=== PATIENT | female | born 1950 | race African-American/Black ===

== ENCOUNTER 2017-11-30 08:22 | Emergency (ER) | payer MEDICARE, BC ==
--- NOTE | 2017-11-30 09:17 | ER Document Report ---
ED General - General Chief Complaint: Flank Pain Stated Complaint: RIGHT SIDE PAIN Time Seen by Provider: 11/30/17 08:41 Mode of Arrival: Ambulatory Information source: Patient Notes: 67-year-old female history of stage IV chronic kidney disease who is from near presents with complaints of right flank pain started yesterday. Patient denies any fever chills denies any urinary complaints. 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 IN LAST 30 DAYS: No - HPI Onset: Yesterday Onset/Duration: Persistent Quality of pain: Achy, Sharp Severity: Mild Pain Level: 1 Associated symptoms: Other Exacerbated by: Denies Relieved by: Denies Similar symptoms previously: No Recently seen / treated by doctor: No - Related Data Allergies/Adverse Reactions: latex Allergy (Verified 11/30/17 08:33) Past Medical History - Social History Smoking Status: Never Smoker Cigarette use (# per day): No Chew tobacco use (# tins/day): No Smoking Education Provided: No Frequency of alcohol use: None Drug Abuse: None Family History: Reviewed & Not Pertinent Patient has suicidal ideation: No Patient has homicidal ideation: No - Past Medical History Cardiac Medical History: Reports: Hx Hypertension Renal/ Medical History: Denies: Hx Peritoneal Dialysis Review of Systems - Review of Systems Notes: REVIEW OF SYSTEMS: CONSTITUTIONAL : Denies fever, chills, or sweats. Denies recent illness. EENT: Denies eye, ear, throat, or mouth pain or symptoms. Denies nasal or sinus congestion or discharge. Denies throat, tongue, or mouth swelling or difficulty swallowing. CARDIOVASCULAR: Denies chest pain. Denies palpitations or racing or irregular heart beat. Denies ankle edema. RESPIRATORY: Denies cough, cold, or chest congestion. Denies shortness of breath, difficulty breathing, or wheezing. GASTROINTESTINAL: Admits to right flank pain GENITOURINARY: Denies difficulty urinating, painful urination, burning, frequency, blood in urine, or discharge. FEMALE GENITOURINARY: Denies vaginal bleeding, heavy or abnormal periods, irregular periods. Denies vaginal discharge or odor. MUSCULOSKELETAL: Denies back or neck pain or stiffness. Denies joint pain or swelling. SKIN: Denies rash, lesions or sores. HEMATOLOGIC : Denies easy bruising or bleeding. LYMPHATIC: Denies swollen, enlarged glands. NEUROLOGICAL: Denies confusion or altered mental status. Denies passing out or loss of consciousness. Denies dizziness or lightheadedness. Denies headache. Denies weakness or paralysis or loss of use of either side. Denies problems with gait or speech. Denies sensory loss, numbness, or tingling. Denies seizures. PSYCHIATRIC: Denies anxiety or stress. Denies depression, suicidal ideation, or homicidal ideation. ALL OTHER SYSTEMS REVIEWED AND NEGATIVE. PHYSICAL EXAMINATION: GENERAL: Well-appearing, well-nourished and in no acute distress. HEAD: Atraumatic, normocephalic. EYES: Pupils equal round and reactive to light, extraocular movements intact, conjunctiva are normal. ENT: Nares patent, oropharynx clear without exudates. Moist mucous membranes. NECK: Normal range of motion, supple without lymphadenopathy LUNGS: Breath sounds clear to auscultation bilaterally and equal. No wheezes rales or rhonchi. HEART: Regular rate and rhythm without murmurs ABDOMEN: Soft, nontender, nondistended abdomen. No guarding, no rebound. No masses appreciated. Female : deferred Musculoskeletal: Normal range of motion, no pitting or edema. No cyanosis. NEUROLOGICAL: Cranial nerves grossly intact. Normal speech, normal gait. Normal sensory, motor exams PSYCH: Normal mood, normal affect. SKIN: Warm, Dry, normal turgor, no rashes or lesions noted. Dictation was performed using [email or web address] voice recognition software Physical Exam - Vital signs Vitals: Temp Pulse Resp BP Pulse Ox 97.7 F 89 18 192/84 H 97 11/30/17 08:32 11/30/17 08:32 11/30/17 08:32 11/30/17 08:32 11/30/17 08:32 Course - Re-evaluation Re-evalutation: 11/30/17 09:17 No CVA tenderness noted however patient has point tenderness in the right flank , lab work urinalysis and imaging are pending at this time 11/30/17 14:59 Patient's creatinine is noted to be 2.06, she is unsure what her baseline is, her potassium is not elevated, she will be given nephrology to follow-up with, CT was consistent with cholelithiasis without signs of cholecystitis and patient has no right-sided abdominal pain I did describe the findings to her. Overall she looks well is in no distress, there was 3+ bacteria in her urine therefore I will start her on antibiotics and culture her urine Patient given very strict return precautions and is happy with her discharge After performing a Medical Screening Examination, I estimate there is LOW risk for ACUTE APPENDICITIS, BOWEL OBSTRUCTION, ACUTE CHOLECYSTITIS, PERFORATED DIVERTICULITIS, INCARCERATED HERNIA, PANCREATITIS, PELVIC INFLAMMATORY DISEASE, PERFORATED ULCER, ECTOPIC , or TUBO-OVARIAN ABSCESS, thus I consider the discharge disposition reasonable. Also, there is no evidence or peritonitis , sepsis, or toxicity. I have reevaluated this patient multiple times and no significant life threatening changes are noted. The patient and I have discussed the diagnosis and risks, and we agree with discharging home with close follow-up with the understanding that symptoms and presentations can change. We also discussed returning to the Emergency Department immediately if new or worsening symptoms occur. We have discussed the symptoms which are most concerning (e.g., bloody stool, fever, changing or worsening pain, vomiting) that necessitate immediate return. - Vital Signs Vital signs: Temp Pulse Resp BP Pulse Ox 98.3 F 77 18 152/95 H 98 11/30/17 11:15 11/30/17 11:15 11/30/17 11:15 11/30/17 11:15 11/30/17 11:15 - Laboratory Result Diagrams: 11/30/17 09:29 11/30/17 10:32 Laboratory results interpreted by me: 11/30/17 11/30/17 11/30/17 09:29 10:24 10:32 RDW 15.5 H Sodium 145.1 H Chloride 109 H BUN 28 H Creatinine 2.06 H Est GFR ( Amer) 29 L Est GFR (Non-Af Amer) 24 L Urine Protein >=500 H Urine Blood SMALL H - Diagnostic Test Radiology reviewed: Image reviewed - CT abdomen without oral or IV contrast is consistent with cholelithiasis, Reports reviewed Discharge - Discharge Clinical Impression: CKD (chronic kidney disease) Qualifiers: Chronic kidney disease stage: stage 3 (moderate) Qualified Code(s): N18.3 - Chronic kidney disease, stage 3 (moderate) UTI (urinary tract infection) Qualifiers: Urinary tract infection type: acute cystitis Hematuria presence: without hematuria Qualified Code(s): N30.00 - Acute cystitis without hematuria Condition: Stable Disposition: HOME, SELF-CARE Instructions: Urinary Tract Infection ([facility]) Prescriptions: Cephalexin Monohydrate [Keflex 500 mg Capsule] 500 mg PO BID 7 Days capsule Referrals: Caroline TINSLEY MD [ACTIVE STAFF] - Follow up tomorrow
--- NOTE | 2017-11-30 09:42 | RADIOLOGY REPORT (SQ) ---
EXAM DESCRIPTION: CT LTD RENAL STONE PROTOCOL ON COMPLETED DATE/TIME: 11/30/2017 9:12 am REASON FOR STUDY: flank pain COMPARISON: None. TECHNIQUE: CT scan of the abdomen and pelvis performed without intravenous or oral contrast. Images reviewed with lung, soft tissue, and bone windows. Reconstructed coronal and sagittal MPR images revi ewed. All images stored on PACS. All CT scanners at this facility use dose modulation, iterative reconstruction, and/or weight based d osing when appropriate to reduce radiation dose to as low as reasonably achievable (ALARA). [facility]: Dose Right [facility]: CareDose [facility]: Dose Right [facility]: Teradose 4D [facility]: [employer] RADIATION DOSE: CT Rad equipment meets quality standard of care and radiation dose reduction techniq ues were employed. CTDIvol: 23.4 mGy. DLP: 1286 mGy-cm.mGy. LIMITATIONS: None. FINDINGS: LOWER CHEST: No significant findings. No nodules or infiltrates. NON-CONTRASTED LIVER, SPLEEN, ADRENALS: Evaluation limited by lack of IV contrast. No identified sign ificant masses. PANCREAS: No masses. No peripancreatic inflammatory changes. GALLBLADDER: Gallstones. No inflammatory changes to suggest cholecystitis. RIGHT KIDNEY AND URETER: No suspicious masses. Assessment limited by lack of IV contrast. No signif icant calcifications. No hydronephrosis or hydroureter. LEFT KIDNEY AND URETER: No suspicious masses. Assessment limited by lack of IV contrast. No signifi cant calcifications. No hydronephrosis or hydroureter. AORTA AND RETROPERITONEUM: No aneurysm. No retroperitoneal masses or adenopathy. BOWEL AND PERITONEAL CAVITY: No obvious masses or inflammatory changes. No free fluid. APPENDIX: Normal. PELVIS, BLADDER, AND ABDOMINAL WALL:No abnormal masses. No free fluid. Bladder normal. BONES: No significant findings. OTHER: No other significant finding. IMPRESSION: Cholelithiasis. No acute findings. COMMENT: Quality ID # [id number]: Final reports with documentation of one or more dose reduction techniques (e.g., Automated exposure control, adjustment of the mA and/or kV according to patient size, use of iterative reconstruction technique) TECHNICAL DOCUMENTATION: JOB ID: [id number] [employer]- All Rights Reserved Reading location - IP/workstation name: [email or web address]
[2017-11-30 09:46] LABS: ABSOLUTE BASOPHILS # (AUTO) 0.1 10^3/uL (0.0-0.2); ABSOLUTE EOSINOPHILS # (AUTO) 0.2 10^3/uL (0.0-0.6); ABSOLUTE LYMPHOCYTES (AUTO) 2.1 10^3/uL (0.5-4.7); ABSOLUTE MONOCYTES (AUTO) 0.6 10^3/uL (0.1-1.4); ABSOLUTE NEUT (AUTO) 4.9 10^3/uL (1.7-8.2); BASOPHILS % (AUTO) 1.2 % (0-2); EOSINOPHILS % (AUTO) 2.1 % (0-6); HEMATOCRIT 37.7 % (36.0-47.0); HEMOGLOBIN 12.4 g/dL (12.0-15.5); LYMPHOCYTES % (AUTO) 26.8 % (13-45); MEAN CORPUSCULAR HEMOGLOBIN 29.8 pg (27.0-33.4); MEAN CORPUSCULAR HGB CONC 32.9 g/dL (32.0-36.0); MEAN CORPUSCULAR VOLUME 91 fl (80-97); MONOCYTES % (AUTO) 7.4 % (3-13); PLATELET COUNT 242 10^3/uL (150-450); RED BLOOD COUNT 4.15 10^6/uL (3.72-5.28); RED CELL DISTRIBUTION WIDTH 15.5 % (11.5-14.0); SEGMENTED NEUTROPHILS % (AUTO) 62.5 % (42-78); TOTAL CELLS COUNTED % (AUTO) 100 %; WHITE BLOOD COUNT 7.9 10^3/uL (4.0-10.5)
[2017-11-30 10:57] LABS: APPEARANCE,URINE CLOUDY; BILIRUBIN,URINE NEGATIVE (NEGATIVE); COLOR,URINE YELLOW; GLUCOSE, URINE NEGATIVE (NEGATIVE); KETONES,URINE NEGATIVE (NEGATIVE); LEUKOCYTE ESTERASE,URINE NEGATIVE (NEGATIVE); NITRITE,URINE NEGATIVE (NEGATIVE); PROTEIN,URINE >=500 mg/dL (NEGATIVE); URINE SPECIFIC GRAVITY 1.019; UROBILINOGEN,URINE NEGATIVE mg/dL (<2.0)
[2017-11-30 10:58] LABS: ALANINE AMINOTRANSFERASE 24 U/L (9-52); ALBUMIN 3.5 g/dL (3.5-5.0); ALKALINE PHOSPHATASE 89 U/L (38-126); ANION GAP 11 (5-19); ASPARTATE AMINO TRANSFERASE 18 U/L (14-36); BILIRUBIN,DIRECT 0.4 mg/dL (0.0-0.4); BILIRUBIN,TOTAL 0.4 mg/dL (0.2-1.3); BLOOD UREA NITROGEN 28 mg/dL (7-20); CALCIUM 9.2 mg/dL (8.4-10.2); CARBON DIOXIDE 25 mmol/L (22-30); CHLORIDE 109 mmol/L (98-107); GLUCOSE 108 mg/dL (75-110); LIPASE 63.2 U/L (23-300); POTASSIUM 3.9 mmol/L (3.6-5.0); SODIUM 145.1 mmol/L (137-145); TOTAL PROTEIN 6.9 g/dL (6.3-8.2)
[2017-11-30 11:18] VITALS: BP 152/95
== END 2017-11-30 11:18 | disposition home or self-care (01) ==
LOC: EDBD → ER 08:22
DX: N30.00 Acute cystitis without hematuria (principal); I12.9 Hypertensive chronic kidney disease with stage 1 through stage 4 chronic kidney disease, or unspecified chronic kidney disease; N18.3 Chronic kidney disease, stage 3 (moderate); Z91.041 Radiographic dye allergy status; R10.9 Unspecified abdominal pain
CPT/HCPCS: 36415; 76380; 80053; 81001; 83690; 85025; 87086; 99284

== ENCOUNTER → 2018-04-09 | Outpatient (CLI) | payer MEDICARE, BC ==
[2018-04-09 10:52] LABS: ABSOLUTE BASOPHILS # (AUTO) 0.1 10^3/uL (0.0-0.2); ABSOLUTE EOSINOPHILS # (AUTO) 0.1 10^3/uL (0.0-0.6); ABSOLUTE LYMPHOCYTES (AUTO) 1.8 10^3/uL (0.5-4.7); ABSOLUTE MONOCYTES (AUTO) 0.5 10^3/uL (0.1-1.4); ABSOLUTE NEUT (AUTO) 4.2 10^3/uL (1.7-8.2); BASOPHILS % (AUTO) 1.2 % (0-2); EOSINOPHILS % (AUTO) 2.2 % (0-6); HEMATOCRIT 34.3 % (36.0-47.0); HEMOGLOBIN 11.5 g/dL (12.0-15.5); LYMPHOCYTES % (AUTO) 26.3 % (13-45); MEAN CORPUSCULAR HEMOGLOBIN 29.6 pg (27.0-33.4); MEAN CORPUSCULAR HGB CONC 33.4 g/dL (32.0-36.0); MEAN CORPUSCULAR VOLUME 89 fl (80-97); MONOCYTES % (AUTO) 7.9 % (3-13); PLATELET COUNT 246 10^3/uL (150-450); RED BLOOD COUNT 3.88 10^6/uL (3.72-5.28); RED CELL DISTRIBUTION WIDTH 14.6 % (11.5-14.0); SEGMENTED NEUTROPHILS % (AUTO) 62.4 % (42-78); TOTAL CELLS COUNTED % (AUTO) 100 %; WHITE BLOOD COUNT 6.8 10^3/uL (4.0-10.5)
[2018-04-09 11:22] LABS: ALANINE AMINOTRANSFERASE 21 U/L (9-52); ALBUMIN 3.4 g/dL (3.5-5.0); ALKALINE PHOSPHATASE 94 U/L (38-126); ANION GAP 12 (5-19); ASPARTATE AMINO TRANSFERASE 17 U/L (14-36); BILIRUBIN,DIRECT 0.3 mg/dL (0.0-0.4); BILIRUBIN,TOTAL 0.4 mg/dL (0.2-1.3); BLOOD UREA NITROGEN 34 mg/dL (7-20); CALCIUM 8.8 mg/dL (8.4-10.2); CARBON DIOXIDE 24 mmol/L (22-30); CHLORIDE 109 mmol/L (98-107); GLUCOSE 159 mg/dL (75-110); IRON(TIBC) 61.5 ug/dL (37-170); PHOSPHORUS 4.5 mg/dL (2.5-4.5); POTASSIUM 3.6 mmol/L (3.6-5.0); SODIUM 145.4 mmol/L (137-145); TOTAL PROTEIN 6.9 g/dL (6.3-8.2)
[2018-04-10 15:38] LABS: A/G RATIO 0.8 (0.7-1.7); ALPHA-2-GLOBULIN 2 0.9 g/dL (0.4-1.0); BETA GLOBULINS 1.1 g/dL (0.7-1.3); GAMMA GLOBULIN 1.4 g/dL (0.4-1.8); GLOBULIN TOTAL 3.6 g/dL (2.2-3.9); MONOCLONAL SPIKE Not Observed g/dL (Not Observ); PROTEIN TOTAL SERUM 6.6 g/dL (6.0-8.5)
== END ==
LOC: OD 09:51
PROVIDERS: ATTEND Internal Medicine Nephrology
DX: I12.9 Hypertensive chronic kidney disease with stage 1 through stage 4 chronic kidney disease, or unspecified chronic kidney disease (principal); N18.4 Chronic kidney disease, stage 4 (severe); D64.9 Anemia, unspecified; M1A.00X0 Idiopathic chronic gout, unspecified site, without tophus (tophi)
CPT/HCPCS: 36415; 80053; 82728; 83540; 83550; 83970; 84100; 84165; 84550; 85025

== ENCOUNTER → 2018-10-16 | Outpatient (CLI) | payer MEDICARE, BC ==
[2018-10-16 10:04] LABS: HEMATOCRIT 36.2 % (36.0-47.0); HEMOGLOBIN 12.2 g/dL (12.0-15.5); MEAN CORPUSCULAR HEMOGLOBIN 30.4 pg (27.0-33.4); MEAN CORPUSCULAR HGB CONC 33.7 g/dL (32.0-36.0); MEAN CORPUSCULAR VOLUME 90 fl (80-97); PLATELET COUNT 258 10^3/uL (150-450); RED BLOOD COUNT 4.01 10^6/uL (3.72-5.28); RED CELL DISTRIBUTION WIDTH 15.2 % (11.5-14.0); WHITE BLOOD COUNT 5.9 10^3/uL (4.0-10.5)
[2018-10-16 10:25] LABS: ANION GAP 11 (5-19); BLOOD UREA NITROGEN 33 mg/dL (7-20); CARBON DIOXIDE 24 mmol/L (22-30); CHLORIDE 111 mmol/L (98-107); GLUCOSE 84 mg/dL (75-110); POTASSIUM 3.8 mmol/L (3.6-5.0); SODIUM 145.5 mmol/L (137-145)
== END ==
LOC: OD 09:13
PROVIDERS: ATTEND Internal Medicine Nephrology
DX: I12.9 Hypertensive chronic kidney disease with stage 1 through stage 4 chronic kidney disease, or unspecified chronic kidney disease (principal); N18.3 Chronic kidney disease, stage 3 (moderate); D64.9 Anemia, unspecified
CPT/HCPCS: 36415; 80048; 83970; 84100; 85027

== ENCOUNTER → 2018-11-20 | Outpatient (CLI) | payer MEDICARE, BC ==
[2018-11-20 10:57] LABS: HEMATOCRIT 34.5 % (36.0-47.0); HEMOGLOBIN 11.6 g/dL (12.0-15.5); MEAN CORPUSCULAR HEMOGLOBIN 30.2 pg (27.0-33.4); MEAN CORPUSCULAR HGB CONC 33.6 g/dL (32.0-36.0); MEAN CORPUSCULAR VOLUME 90 fl (80-97); PLATELET COUNT 257 10^3/uL (150-450); RED BLOOD COUNT 3.84 10^6/uL (3.72-5.28); RED CELL DISTRIBUTION WIDTH 15.8 % (11.5-14.0); WHITE BLOOD COUNT 7.8 10^3/uL (4.0-10.5)
[2018-11-20 11:18] LABS: AMORPHOUS SEDIMENT,URINE TRACE /HPF; APPEARANCE,URINE TURBID; BILIRUBIN,URINE NEGATIVE (NEGATIVE); COLOR,URINE YELLOW; GLUCOSE, URINE 50 mg/dL (NEGATIVE); KETONES,URINE NEGATIVE (NEGATIVE); LEUKOCYTE ESTERASE,URINE TRACE (NEGATIVE); NITRITE,URINE NEGATIVE (NEGATIVE); PROTEIN,URINE >=500 mg/dL (NEGATIVE); URINE SPECIFIC GRAVITY 1.015; UROBILINOGEN,URINE NEGATIVE mg/dL (<2.0)
[2018-11-20 11:19] LABS: ANION GAP 10 (5-19); BLOOD UREA NITROGEN 40 mg/dL (7-20); CALCIUM 9.2 mg/dL (8.4-10.2); CARBON DIOXIDE 25 mmol/L (22-30); CHLORIDE 106 mmol/L (98-107); GLUCOSE 115 mg/dL (75-110); PHOSPHORUS 5.1 mg/dL (2.5-4.5); POTASSIUM 3.6 mmol/L (3.6-5.0); SODIUM 141.4 mmol/L (137-145)
[2018-11-20 11:27] LABS: URINE CREATININE 174.5 mg/dL (15-278)
[2018-11-20 11:36] LABS: UR PRO/CREAT RATIO RESULT 2.4 mg/mg (0.0-0.2); URINE PROTEIN 426.9 mg/dL (<12)
== END ==
LOC: OD 10:01
PROVIDERS: ATTEND Internal Medicine Nephrology
DX: I12.9 Hypertensive chronic kidney disease with stage 1 through stage 4 chronic kidney disease, or unspecified chronic kidney disease (principal); N18.4 Chronic kidney disease, stage 4 (severe); E11.22 Type 2 diabetes mellitus with diabetic chronic kidney disease
CPT/HCPCS: 36415; 80048; 81001; 82570; 83970; 84100; 84156; 85027

== ENCOUNTER → 2019-03-01 | Outpatient (CLI) | payer MEDICARE, BC ==
[2019-03-01 11:02] LABS: MEAN CORPUSCULAR HEMOGLOBIN 29.8 pg (27.0-33.4); MEAN CORPUSCULAR HGB CONC 33.4 g/dL (32.0-36.0); MEAN CORPUSCULAR VOLUME 89 fl (80-97); PLATELET COUNT 247 10^3/uL (150-450); RED BLOOD COUNT 3.69 10^6/uL (3.72-5.28); RED CELL DISTRIBUTION WIDTH 15.9 % (11.5-14.0); WHITE BLOOD COUNT 6.7 10^3/uL (4.0-10.5)
[2019-03-01 11:24] LABS: ANION GAP 9 (5-19); BLOOD UREA NITROGEN 37 mg/dL (7-20); CALCIUM 9.1 mg/dL (8.4-10.2); CARBON DIOXIDE 29 mmol/L (22-30); CHLORIDE 107 mmol/L (98-107); GLUCOSE 136 mg/dL (75-110); PHOSPHORUS 4.4 mg/dL (2.5-4.5); SODIUM 144.8 mmol/L (137-145)
[2019-03-01 16:12] LABS: APPEARANCE,URINE CLEAR; BILIRUBIN,URINE NEGATIVE (NEGATIVE); COLOR,URINE YELLOW; GLUCOSE, URINE NEGATIVE (NEGATIVE); KETONES,URINE NEGATIVE (NEGATIVE); LEUKOCYTE ESTERASE,URINE NEGATIVE (NEGATIVE); NITRITE,URINE NEGATIVE (NEGATIVE); PROTEIN,URINE >=500 mg/dL (NEGATIVE); UROBILINOGEN,URINE NEGATIVE mg/dL (<2.0)
[2019-03-01 16:19] LABS: URINE SPECIFIC GRAVITY 1.015
[2019-03-01 16:31] LABS: URINE CREATININE 170.9 mg/dL (15-278)
[2019-03-01 16:40] LABS: UR PRO/CREAT RATIO RESULT 1.8 mg/mg (0.0-0.2); URINE PROTEIN 305.4 mg/dL (<12)
== END ==
LOC: OD 10:17
PROVIDERS: ATTEND Internal Medicine Nephrology
DX: I12.9 Hypertensive chronic kidney disease with stage 1 through stage 4 chronic kidney disease, or unspecified chronic kidney disease (principal); N18.4 Chronic kidney disease, stage 4 (severe); E11.22 Type 2 diabetes mellitus with diabetic chronic kidney disease; N25.0 Renal osteodystrophy; E83.51 Hypocalcemia; D50.9 Iron deficiency anemia, unspecified
CPT/HCPCS: 36415; 80048; 81001; 82570; 83970; 84100; 84156; 85027

== ENCOUNTER → 2019-07-06 | Outpatient (CLI) | payer MEDICARE, BC ==
[2019-07-06 09:05] LABS: ABSOLUTE BASOPHILS # (AUTO) 0.1 10^3/uL (0.0-0.2); ABSOLUTE EOSINOPHILS # (AUTO) 0.2 10^3/uL (0.0-0.6); ABSOLUTE LYMPHOCYTES (AUTO) 2.1 10^3/uL (0.5-4.7); ABSOLUTE MONOCYTES (AUTO) 0.5 10^3/uL (0.1-1.4); ABSOLUTE NEUT (AUTO) 4.4 10^3/uL (1.7-8.2); EOSINOPHILS % (AUTO) 2.8 % (0-6); HEMATOCRIT 35.4 % (36.0-47.0); HEMOGLOBIN 12.1 g/dL (12.0-15.5); LYMPHOCYTES % (AUTO) 28.9 % (13-45); MEAN CORPUSCULAR HEMOGLOBIN 30.2 pg (27.0-33.4); MEAN CORPUSCULAR HGB CONC 34.1 g/dL (32.0-36.0); MEAN CORPUSCULAR VOLUME 89 fl (80-97); MONOCYTES % (AUTO) 7.1 % (3-13); PLATELET COUNT 251 10^3/uL (150-450); RED CELL DISTRIBUTION WIDTH 16.1 % (11.5-14.0); SEGMENTED NEUTROPHILS % (AUTO) 60.2 % (42-78); TOTAL CELLS COUNTED % (AUTO) 100 %; WHITE BLOOD COUNT 7.4 10^3/uL (4.0-10.5)
[2019-07-06 09:41] LABS: ALBUMIN 3.8 g/dL (3.5-5.0); ANION GAP 10 (5-19); BLOOD UREA NITROGEN 37 mg/dL (7-20); CARBON DIOXIDE 25 mmol/L (22-30); CHLORIDE 107 mmol/L (98-107); GLUCOSE 100 mg/dL (75-110); PHOSPHORUS 4.8 mg/dL (2.5-4.5); POTASSIUM 3.9 mmol/L (3.6-5.0)
[2019-07-06 15:14] LABS: APPEARANCE,URINE CLEAR; BILIRUBIN,URINE NEGATIVE (NEGATIVE); COLOR,URINE YELLOW; GLUCOSE, URINE 50 mg/dL (NEGATIVE); KETONES,URINE NEGATIVE (NEGATIVE); LEUKOCYTE ESTERASE,URINE NEGATIVE (NEGATIVE); NITRITE,URINE NEGATIVE (NEGATIVE); PROTEIN,URINE 100 mg/dL (NEGATIVE); URINE SPECIFIC GRAVITY 1.014; UROBILINOGEN,URINE NEGATIVE mg/dL (<2.0)
[2019-07-06 15:53] LABS: UR PRO/CREAT RATIO RESULT 1.3 mg/mg (0.0-0.2); URINE CREATININE 144.7 mg/dL (15-278); URINE PROTEIN 193.7 mg/dL (<12)
== END ==
LOC: OD 08:19
PROVIDERS: ATTEND Internal Medicine Nephrology
DX: I12.9 Hypertensive chronic kidney disease with stage 1 through stage 4 chronic kidney disease, or unspecified chronic kidney disease (principal); N18.4 Chronic kidney disease, stage 4 (severe); E11.22 Type 2 diabetes mellitus with diabetic chronic kidney disease; R80.9 Proteinuria, unspecified
CPT/HCPCS: 36415; 80069; 81001; 82570; 83970; 84156; 85025

== ENCOUNTER 2019-07-19 17:55 | Inpatient (IN) | payer MEDICARE, BC ==
[2019-07-19 18:25] LABS: ABSOLUTE EOSINOPHILS # (AUTO) 0.1 10^3/uL (0.0-0.6); ABSOLUTE MONOCYTES (AUTO) 0.8 10^3/uL (0.1-1.4); ABSOLUTE NEUT (AUTO) 2.1 10^3/uL (1.7-8.2); BASOPHILS % (AUTO) 0.9 % (0-2); EOSINOPHILS % (AUTO) 1.3 % (0-6); HEMATOCRIT 35.4 % (36.0-47.0); HEMOGLOBIN 11.7 g/dL (12.0-15.5); LYMPHOCYTES % (AUTO) 38.8 % (13-45); MEAN CORPUSCULAR HEMOGLOBIN 29.3 pg (27.0-33.4); MEAN CORPUSCULAR HGB CONC 33.1 g/dL (32.0-36.0); MEAN CORPUSCULAR VOLUME 89 fl (80-97); MONOCYTES % (AUTO) 16.7 % (3-13); PLATELET COUNT 249 10^3/uL (150-450); RED CELL DISTRIBUTION WIDTH 16.6 % (11.5-14.0); SEGMENTED NEUTROPHILS % (AUTO) 42.3 % (42-78); TOTAL CELLS COUNTED % (AUTO) 100 %
--- NOTE | 2019-07-19 18:41 | ER Document Report ---
ED General - General Chief Complaint: Syncope Stated Complaint: FALL/SYNCOPE Time Seen by Provider: 07/19/19 18:28 Primary Care Provider: Caroline TINSLEY MD [ACTIVE STAFF] - Follow up as needed Mode of Arrival: Medic Information source: Patient Notes: 69-year-old female with end-stage renal disease, hypertension, diabetes, previous CVA on Plavix, presents via EMS after a syncopal episode at [facility]. Patient states that she was standing in line when she suddenly began feeling nauseous, vomited and the next thing she knew she woke up on the floor. EMS reported the patient was in atrial fibrillation with a heart rate of 175 upon their arrival. She did receive 25 mg of Cardizem IV and upon arrival to the emergency department has a current heart rate of 97. Patient denies previous history of atrial fibrillation. She states that she has otherwise been feeling well and had no preceding chest pain, shortness of breath, dizziness. TRAVEL OUTSIDE OF THE [place] IN LAST 30 DAYS: No - HPI Onset: Just prior to arrival Onset/Duration: Sudden Quality of pain: No pain Associated symptoms: Nausea, Vomiting, Rhinnorhea, Sinus pain/drainage. denies: Chest pain, Nonproductive cough, Productive cough, Fever, Shortness of breath, Weakness Exacerbated by: Denies Relieved by: Denies Similar symptoms previously: No Recently seen / treated by doctor: No - Related Data Allergies/Adverse Reactions: latex Allergy (Verified 11/30/17 08:33) Past Medical History - General Information source: Patient, [facility] Records - Social History Smoking Status: Never Smoker Frequency of alcohol use: None Drug Abuse: None Lives with: Family Family History: Reviewed & Not Pertinent Patient has suicidal ideation: No Patient has homicidal ideation: No - Past Medical History Cardiac Medical History: Reports: Hx Hypertension Endocrine Medical History: Reports: Hx Diabetes Mellitus Type 2 Renal/ Medical History: Reports: Hx End Stage Renal Disease. Denies: Hx Peritoneal Dialysis Review of Systems - Review of Systems Notes: REVIEW OF SYSTEMS: CONSTITUTIONAL : Denies fever, chills, or sweats. Denies recent illness. Denies weight loss, recent hospitalizations. EENT: Denies visual changes, eye pain. Denies sore throat, oral lesions, difficulty swallowing. CARDIOVASCULAR: Denies chest pain. Denies palpitations. Denies lower extremity edema. RESPIRATORY: Denies cough. Denies shortness of breath, wheezing. GASTROINTESTINAL: Denies abdominal pain or distention. Denies diarrhea. Denies blood in vomitus, stools, or per rectum. Denies black, tarry stools. Denies constipation. GENITOURINARY: Denies difficulty urinating, painful urination, frequency, blood in urine, or vaginal discharge. MUSCULOSKELETAL: Denies back or neck pain or stiffness. Denies joint pain or swelling. SKIN: Denies rash, lesions or sores. HEMATOLOGIC : Denies easy bruising or bleeding. LYMPHATIC: Denies swollen glands. NEUROLOGICAL: Denies confusion or altered mental status. Denies loss of consciousness. Denies dizziness or lightheadedness. Denies headache. Denies weakness or paralysis. Denies problems difficulty with ambulation, slurred speech. Denies sensory loss, numbness, or tingling. Denies seizures. PSYCHIATRIC: Denies anxiety or stress. Denies depression, suicidal ideation, or homicidal ideation. Denies visual or auditory hallucinations. Physical Exam - Vital signs Vitals: Pulse Ox 99 07/19/19 17:59 - Notes Notes: PHYSICAL EXAMINATION: GENERAL: Well-appearing, well-nourished and in no acute distress. HEAD: Atraumatic, normocephalic. EYES: Pupils equal round and reactive to light, extraocular movements intact, conjunctiva are normal. ENT: Nares patent, oropharynx clear without exudates. Moist mucous membranes. NECK: Normal range of motion, supple without lymphadenopathy LUNGS: Breath sounds clear to auscultation bilaterally and equal. No wheezes rales or rhonchi. HEART: Regular rate irregular rhythm without murmurs ABDOMEN: Soft, nontender, nondistended abdomen. No guarding, no rebound. No masses appreciated. Female : deferred Musculoskeletal: Normal range of motion, no pitting or edema. No cyanosis. NEUROLOGICAL: Cranial nerves grossly intact. Normal speech, normal gait. Normal sensory, motor exams PSYCH: Normal mood, normal affect. SKIN: Warm, Dry, normal turgor, no rashes or lesions noted. Course - Re-evaluation Re-evalutation: Laboratory 07/19/19 07/19/19 07/19/19 18:07 18:07 18:07 WBC 5.0 RBC 4.00 Hgb 11.7 L Hct 35.4 L MCV 89 MCH 29.3 MCHC 33.1 RDW 16.6 H Plt Count 249 Lymph % (Auto) 38.8 [place] % (Auto) 16.7 H Eos % (Auto) 1.3 Baso % (Auto) 0.9 Absolute Neuts (auto) 2.1 Absolute Lymphs (auto) 2.0 Absolute Monos (auto) 0.8 Absolute Eos (auto) 0.1 Absolute Basos (auto) 0.0 Seg Neutrophils % 42.3 Sodium Cancelled Potassium Cancelled Chloride Cancelled Carbon Dioxide Cancelled Anion Gap Cancelled BUN Cancelled Creatinine Cancelled Est GFR ( Amer) Cancelled Est GFR (Non-Af Amer) Cancelled Est GFR (MDRD) Non-Af Cancelled Glucose Cancelled Calcium Cancelled Magnesium Total Bilirubin Cancelled Direct Bilirubin Cancelled Neonat Total Bilirubin Cancelled Neonat Direct Bilirubin Cancelled Neonat Indirect Bili Cancelled AST Cancelled ALT Cancelled Alkaline Phosphatase Cancelled Creatine Kinase Cancelled CK-MB (CK-2) Cancelled Troponin I Cancelled Total Protein Cancelled Albumin Cancelled EGFR Cancelled TSH Free T4 Free T3 pg/mL 07/19/19 07/19/19 07/19/19 18:07 18:07 19:11 WBC RBC Hgb Hct MCV MCH MCHC RDW Plt Count Lymph % (Auto) [place] % (Auto) Eos % (Auto) Baso % (Auto) Absolute Neuts (auto) Absolute Lymphs (auto) Absolute Monos (auto) Absolute Eos (auto) Absolute Basos (auto) Seg Neutrophils % Sodium 139.8 Potassium 4.2 Chloride 106 Carbon Dioxide 26 Anion Gap 8 BUN 38 H Creatinine 3.19 H Est GFR ( Amer) 18 L Est GFR (Non-Af Amer) Est GFR (MDRD) Non-Af 15 L Glucose 103 Calcium 8.7 Magnesium Cancelled 2.2 Total Bilirubin 0.4 Direct Bilirubin 0.2 Neonat Total Bilirubin Not Reportable Neonat Direct Bilirubin Not Reportable Neonat Indirect Bili Not Reportable AST 28 ALT 12 Alkaline Phosphatase 83 Creatine Kinase 293 H CK-MB (CK-2) Troponin I Total Protein 6.7 Albumin 3.3 L EGFR TSH Cancelled Free T4 Cancelled Free T3 pg/mL Cancelled 07/19/19 19:11 WBC RBC Hgb Hct MCV MCH MCHC RDW Plt Count Lymph % (Auto) [place] % (Auto) Eos % (Auto) Baso % (Auto) Absolute Neuts (auto) Absolute Lymphs (auto) Absolute Monos (auto) Absolute Eos (auto) Absolute Basos (auto) Seg Neutrophils % Sodium Potassium Chloride Carbon Dioxide Anion Gap BUN Creatinine Est GFR ( Amer) Est GFR (Non-Af Amer) Est GFR (MDRD) Non-Af Glucose Calcium Magnesium Total Bilirubin Direct Bilirubin Neonat Total Bilirubin Neonat Direct Bilirubin Neonat Indirect Bili AST ALT Alkaline Phosphatase Creatine Kinase CK-MB (CK-2) 1.93 Troponin I 0.058 Total Protein Albumin EGFR TSH Free T4 Free T3 pg/mL Head CT 07/19/19 18:16 IMPRESSION: No hemorrhage. No midline shift. Scattered Areas of low density in the white matter most likely due to chronic micro-vascular ischemic change. No evidence for acute large vessel infarction. EVIDENCE OF ACUTE STROKE: NO. Temp Pulse Resp BP Pulse Ox 97.7 F 18 124/72 99 07/19/19 18:00 07/19/19 20:01 07/19/19 20:01 07/19/19 20:01 07/19/19 18:40 69-year-old female presents after a syncopal episode and was found to be in new onset atrial fibrillation. She did receive Cardizem prior to arrival and current heart rate is now 90. Patient is alert, awake and in no acute distress. Denies previous history of atrial fibrillation. Primary care physician Dr. Mcconnell 07/19/19 20:26 Patient is current heart rate is 72. She did receive p.o. Cardizem 30 mg. I did speak to Dr. Mcconnell the primary care physician who has agreed to admit the patient to the [facility]. - Vital Signs Vital signs: Temp Pulse Resp BP Pulse Ox 97.7 F 18 124/72 99 07/19/19 18:00 07/19/19 20:01 07/19/19 20:01 07/19/19 20:01 - Laboratory Result Diagrams: 07/19/19 18:07 07/19/19 19:11 Laboratory results interpreted by me: 07/19/19 07/19/19 18:07 19:11 Hgb 11.7 L Hct 35.4 L RDW 16.6 H [place] % (Auto) 16.7 H BUN 38 H Creatinine 3.19 H Est GFR ( Amer) 18 L Est GFR (MDRD) Non-Af 15 L Creatine Kinase 293 H Albumin 3.3 L - Diagnostic Test Radiology reviewed: Image reviewed, Reports reviewed - EKG Interpretation by Me Rate: Normal Rhythm: A.Fib When compared to previous EKG there are: Changes noted Discharge - Discharge Clinical Impression: New onset atrial fibrillation, Syncope and collapse Chronic kidney disease Qualifiers: Chronic kidney disease stage: stage 3 (moderate) Qualified Code(s): N18.3 - Chronic kidney disease, stage 3 (moderate) Condition: Good Disposition: ADMITTED INPATIENT Admitting Provider: [facility] Unit Admitted: I[facility]U Referrals: Caroline TINSLEY MD [ACTIVE STAFF] - Follow up as needed
--- NOTE | 2019-07-19 18:51 | RADIOLOGY REPORT (SQ) ---
EXAM DESCRIPTION: CT HEAD WITHOUT COMPLETED DATE/TIME: 07/19/2019 6:30 pm REASON FOR STUDY: syncope with LOC COMPARISON: None. TECHNIQUE: Axial images acquired through the brain without intravenous contrast. Images reviewed wi th bone, brain and subdural windows. Images stored on PACS. All CT scanners at this facility use dose modulation, iterative reconstruction, and/or weight based d osing when appropriate to reduce radiation dose to as low as reasonably achievable (ALARA). [facility]: Dose Right [facility]: CareDose [facility]: Dose Right [facility]: Teradose 4D [facility]: [employer] RADIATION DOSE: CT Rad equipment meets quality standard of care and radiation dose reduction techniq ues were employed. CTDIvol: 53.2 mGy. DLP: 991 mGy-cm. mGy. LIMITATIONS: None. FINDINGS: VENTRICLES: Normal. CEREBRUM: No hemorrhage. No midline shift. Scattered Areas of low density in the white matter most likely due to chronic micro-vascular ischemic change. No evidence for acute large vessel infarction . CEREBELLUM: No masses. No hemorrhage. No alteration of density. No evidence for acute infarction. EXTRAAXIAL SPACES: Mild age-related involutional change. No fluid collections. No masses. ORBITS AND GLOBE: No intra- or extraconal masses. Normal contour of globe without masses. CALVARIUM: No fracture. PARANASAL SINUSES: No fluid or mucosal thickening. SOFT TISSUES: No mass or hematoma. OTHER: No other significant finding. IMPRESSION: No hemorrhage. No midline shift. Scattered Areas of low density in the white matter mo st likely due to chronic micro-vascular ischemic change. No evidence for acute large vessel infarcti on. EVIDENCE OF ACUTE STROKE: NO. TECHNICAL DOCUMENTATION: JOB ID: [id number] Quality ID # [id number]: Final reports with documentation of one or more dose reduction techniques (e.g., Au tomated exposure control, adjustment of the mA and/or kV according to patient size, use of iterative reconstruction technique) 2010 [employer]- All Rights Reserved Reading location - IP/workstation name: [email or web address]
[2019-07-19] MEDS ORDERED: DILTIAZEM HCL 30 MG TABLET PO ONE (19:25)
[2019-07-19 19:59] LABS: ALBUMIN 3.3 g/dL (3.5-5.0); ALKALINE PHOSPHATASE 83 U/L (38-126); ANION GAP 8 (5-19); ASPARTATE AMINO TRANSFERASE 28 U/L (14-36); BILIRUBIN,DIRECT 0.2 mg/dL (0.0-0.4); BILIRUBIN,TOTAL 0.4 mg/dL (0.2-1.3); BLOOD UREA NITROGEN 38 mg/dL (7-20); CALCIUM 8.7 mg/dL (8.4-10.2); CARBON DIOXIDE 26 mmol/L (22-30); CHLORIDE 106 mmol/L (98-107); CREATINE KINASE 293 U/L (30-135); GLUCOSE 103 mg/dL (75-110); POTASSIUM 4.2 mmol/L (3.6-5.0); TOTAL PROTEIN 6.7 g/dL (6.3-8.2)
[2019-07-19 20:12] LABS: CREATINE KINASE MB 1.93 ng/mL (<4.55)
[2019-07-19 20:16] LABS: TROPONIN I 0.058 ng/mL
[2019-07-19 20:17] LABS: FREE T3 2.32 pg/mL (2.77-5.27); FREE T4 (FREE THYROXINE) 1.4 ng/dL (0.78-2.19)
[2019-07-19 20:31] LABS: THYROID STIMULATING HORMONE 2.46 uIU/mL (0.47-4.68)
[2019-07-19] MEDS ORDERED: DEXTROSE 50%-WATER 25 GM/50 ML DISP.SYRIN IV PRN ×2 (21:35)
[2019-07-19] MEDS ORDERED: GLUCAGON,HUMAN RECOMB 1 MG INJ IM PRN (21:35)
[2019-07-19] MEDS ORDERED: DEXTROSE 40% GEL 15 GM TUBE PO PRN ×2 (21:35)
[2019-07-19 21:55] LABS: APPEARANCE,URINE SLIGHTLY-CLOUDY; BILIRUBIN,URINE NEGATIVE (NEGATIVE); COLOR,URINE YELLOW; GLUCOSE, URINE NEGATIVE (NEGATIVE); KETONES,URINE NEGATIVE (NEGATIVE); LEUKOCYTE ESTERASE,URINE NEGATIVE (NEGATIVE); NITRITE,URINE NEGATIVE (NEGATIVE); PROTEIN,URINE >=500 mg/dL (NEGATIVE); URINE SPECIFIC GRAVITY 1.015; UROBILINOGEN,URINE NEGATIVE mg/dL (<2.0)
[2019-07-19 22:11] LABS: URINE AMPHETAMINES SCREEN NEGATIVE; URINE BARBITURATES SCREEN NEGATIVE; URINE BENZODIAZEPINES SCREEN NEGATIVE; URINE COCAINE SCREEN NEGATIVE; URINE MARIJUANA (THC) SCREEN NEGATIVE; URINE METHADONE SCREEN NEGATIVE; URINE PHENCYCLIDINE SCREEN NEGATIVE
[2019-07-19] MEDS: INSULIN LISPRO 100 UNIT/ML 3 ML VIAL SUBCUT SCH (22:13)
[2019-07-19] MEDS: APIXABAN 5 MG TABLET PO SCH (22:18)
--- NOTE | 2019-07-19 23:49 | EKG REPORT ---
SEVERITY:- ABNORMAL ECG - ATRIAL FIBRILLATION BORDERLINE LEFT AXIS DEVIATION : Confirmed by: Brad Woody 19-Jul-2019 23:48:41
[2019-07-20] MEDS: DILTIAZEM HCL 30 MG TABLET PO SCH ×3 (02:30→17:43)
[2019-07-20 04:56] LABS: ABSOLUTE BASOPHILS # (AUTO) 0.1 10^3/uL (0.0-0.2); ABSOLUTE EOSINOPHILS # (AUTO) 0.1 10^3/uL (0.0-0.6); ABSOLUTE LYMPHOCYTES (AUTO) 2.4 10^3/uL (0.5-4.7); ABSOLUTE MONOCYTES (AUTO) 0.7 10^3/uL (0.1-1.4); HEMATOCRIT 30.9 % (36.0-47.0); HEMOGLOBIN 10.4 g/dL (12.0-15.5); MEAN CORPUSCULAR HEMOGLOBIN 29.6 pg (27.0-33.4); MEAN CORPUSCULAR HGB CONC 33.7 g/dL (32.0-36.0); MEAN CORPUSCULAR VOLUME 88 fl (80-97); MONOCYTES % (AUTO) 13.9 % (3-13); PLATELET COUNT 197 10^3/uL (150-450); RED BLOOD COUNT 3.51 10^6/uL (3.72-5.28); RED CELL DISTRIBUTION WIDTH 16.4 % (11.5-14.0); SEGMENTED NEUTROPHILS % (AUTO) 38.1 % (42-78); TOTAL CELLS COUNTED % (AUTO) 100 %; WHITE BLOOD COUNT 5.2 10^3/uL (4.0-10.5)
[2019-07-20 05:18] LABS: ALBUMIN 3.3 g/dL (3.5-5.0); ALKALINE PHOSPHATASE 84 U/L (38-126); ANION GAP 10 (5-19); ASPARTATE AMINO TRANSFERASE 25 U/L (14-36); BILIRUBIN,DIRECT 0.1 mg/dL (0.0-0.4); BILIRUBIN,TOTAL 0.3 mg/dL (0.2-1.3); BLOOD UREA NITROGEN 36 mg/dL (7-20); CALCIUM 8.8 mg/dL (8.4-10.2); CARBON DIOXIDE 25 mmol/L (22-30); CHLORIDE 107 mmol/L (98-107); CHOLESTEROL 147.09 mg/dL (0-200); GLUCOSE 112 mg/dL (75-110); POTASSIUM 3.4 mmol/L (3.6-5.0); TOTAL PROTEIN 6.6 g/dL (6.3-8.2); TRIGLYCERIDES 120 mg/dL (<150)
[2019-07-20 05:29] LABS: DIRECT LDL 70 mg/dL (<100)
[2019-07-20] MEDS: PANTOPRAZOLE SODIUM 40 MG TABLET.DR PO SCH (06:00)
[2019-07-20] MEDS: APIXABAN 5 MG TABLET PO SCH ×2 (09:22→17:43)
[2019-07-20] MEDS: INSULIN LISPRO 100 UNIT/ML 3 ML VIAL SUBCUT SCH ×4 (09:26→21:05)
--- NOTE | 2019-07-20 11:56 | RADIOLOGY REPORT (SQ) ---
EXAM DESCRIPTION: CAROTID DOPPLER COMPLETED DATE/TIME: 07/20/2019 10:43 am REASON FOR STUDY: Syncope COMPARISON: None. TECHNIQUE: Grayscale ultrasound, Doppler velocity and spectra, and color Doppler images acquired of the extra-cranial carotid and vertebral arteries. Images stored on PACS. LIMITATIONS: None. FINDINGS: RIGHT CAROTID CCA Velocities: Within normal limits. ICA Velocities Peak systolic 64 cm/s. End diastolic 13 cm/s. Proximal ICA/CCA peak systolic ratio 1.51. Normal spectral waveform. Mild eccentric hyperechoic plaque on grayscale evaluation. LEFT CAROTID CCA Velocities: Within normal limits. ICA Velocities Peak systolic 71 cm/s. End diastolic 24 cm/s. Proximal ICA/CCA peak systolic ratio 1.47. Normal spectral waveform. Mild eccentric hyperechoic plaque on grayscale evaluation. VERTEBRAL ARTERIES: Antegrade flow. SUBCLAVIAN ARTERIES: Not imaged. OTHER: No other significant finding. IMPRESSION: Mild bilateral atherosclerotic plaque without hemodynamically significant stenosis. COMMENT: Quality ID #[id number]: Velocity criteria are extrapolated from the diameter data as defined by t he Society of Radiologists in Ultrasound Consensus Conference. Radiology 2003: 229; 340-346. TECHNICAL DOCUMENTATION: JOB ID: [id number] [employer]- All Rights Reserved Reading location - IP/workstation name: [email or web address]
[2019-07-20] MEDS ORDERED: ACETAMINOPHEN 325 MG TABLET ONE (14:13)
--- NOTE | 2019-07-20 18:31 | EKG REPORT ---
SEVERITY:- BORDERLINE ECG - SINUS RHYTHM VENTRICULAR PREMATURE COMPLEX BORDERLINE T WAVE ABNORMALITIES BORDERLINE PROLONGED QT INTERVAL : Confirmed by: Brad Woody 20-Jul-2019 18:30:55
[2019-07-20] MEDS: ACETAMINOPHEN 325 MG TABLET PO PRN (20:54)
--- NOTE | 2019-07-20 22:36 | PDOC H&P ---
History of Present Illness Admission Date/PCP: 07/19/19 20:53 DI MANCINI MD History of Present Illness: DOMINGA RIBERA is a 69 year old female patient known to my practice who pres ented to the ED via EMS from [facility] where she had episode of syncope. Patient reported that she was standing in line at the [facility] when she started feeling sick, nauseous, vomited and woke up on the floor. She denied any preceding chest pain, dizziness, shortness of breath, palpitation or irregular heart beats. She denied any prior knowledge of event or history of atrial fibrillation. Her morbidities include prior stroke without significant motor deficit, diabetes mellitus type 2, hypertension, and chronic kidney disease. EMS crew reported on site atrial fibrillation with rapid ventricular rate in the region of 175/min. She was treated with Cardizem 25 mg administered IV en route to the ED. In the ED her initial heart rate was in the region of 97/minute. Her initial evaluation in the ED was remarkable for persistence of her atrial fibrillation, slightly elevated cardiac enzymes, hypokalemia, and chronic kidney disease. She was advised hospitalization for further evaluation and management. Her morbidities are as listed below. Past Medical History Cardiac Medical History: Reports: Hypertension Endocrine Medical History: Reports: Diabetes Mellitus Type 2 Renal/ Medical History: Reports: End Stage Renal Disease Social History Lives with: Family Smoking Status: Never Smoker - Advance Directive Resuscitation Status: Full Code Family History Family History: Reviewed & Not Pertinent Parental Family History Reviewed: Yes Children Family History Reviewed: Yes Sibling(s) Family History Reviewed.: Yes Medication/Allergy Home Medications: Allopurinol [Zyloprim 100 mg Tablet] 100 mg PO DAILY 07/20/19 Alpha Lipoic Acid [Alpha Lipoic Acid 300 mg Capsule] 300 mg PO DAILY 07/20/19 Amlodipine Besylate [Norvasc 10 mg Tablet] 10 mg PO DAILY 07/20/19 Ascorbic Acid [C-500] 500 mg PO DAILY 07/20/19 Calcitriol [Rocaltrol 0.25 mcg Capsule] 0.25 mcg PO DAILY 07/20/19 Carvedilol [Coreg 6.25 mg Tablet] 6.25 mg PO Q12 07/20/19 Cholecalciferol (Vitamin D3) [Vitamin D3 5000 unit Capsule] 5,000 unit PO DAILY 07/20/19 Clopidogrel Bisulfate [Plavix 75 mg Tablet] 75 mg PO DAILY 07/20/19 Levothyroxine Sodium [Synthroid 0.088 mg Tablet] 0.088 mg PO Q6AM 07/20/19 Losartan Potassium [Cozaar 25 mg Tablet] 25 mg PO DAILY 07/20/19 Rosuvastatin Calcium [Crestor 5 mg Tablet] 5 mg PO QHS 07/20/19 Semaglutide [Ozempic] 1 mg SQ Q7D 07/20/19 Ubidecarenone/Vit E Acet [Co Q-10 100 mg Softgel] 1 cap PO DAILY 07/20/19 Vitamin E (Dl, Acetate) [Vitamin E 400 Unit Capsule] 400 mg PO TID 07/20/19 Allergies/Adverse Reactions: latex Allergy (Verified 11/30/17 08:33) Review of Systems Constitutional: ABSENT: chills, fever(s), headache(s), weight gain, weight loss Eyes: ABSENT: visual disturbances Ears: ABSENT: hearing changes Nose, Mouth, and Throat: ABSENT: as per HPI, headache(s), mouth pain, sore throat, vertigo, other Cardiovascular: ABSENT: chest pain, dyspnea on exertion, edema, orthropnea, palpitations Respiratory: ABSENT: cough, hemoptysis Gastrointestinal: PRESENT: nausea, vomiting Genitourinary: ABSENT: dysuria, hematuria Musculoskeletal: ABSENT: joint swelling Integumentary: ABSENT: rash, wounds Neurological: PRESENT: syncope Psychiatric: ABSENT: anxiety, depression, homidical ideation, suicidal ideation Endocrine: ABSENT: cold intolerance, heat intolerance, menstrual abnormalities, polydipsia, polyuria Hematologic/Lymphatic: ABSENT: easy bleeding, easy bruising, lymphadenopathy Allergic/Immunologic: ABSENT: seasonal rhinorrhea Physical Exam Vital Signs: Temp Pulse Resp BP Pulse Ox 97.7 F 18 124/72 99 07/19/19 18:00 07/19/19 20:01 07/19/19 20:01 07/19/19 20:01 Intake & Output 07/18/19 07/19/19 07/20/19 06:59 06:59 06:59 Weight 113.398 kg General appearance: PRESENT: morbidly obese Head exam: PRESENT: atraumatic, normocephalic Eye exam: PRESENT: conjunctiva pink, EOMI, PERRLA. ABSENT: scleral icterus Ear exam: PRESENT: normal external ear exam Mouth exam: PRESENT: moist, tongue midline Neck exam: PRESENT: full ROM. ABSENT: carotid bruit, JVD, lymphadenopathy, thyromegaly Respiratory exam: PRESENT: clear to auscultation hans Cardiovascular exam: PRESENT: irregular rhythm, +S1, +S2, tachycardia. ABSENT: diastolic murmur, gallop, systolic murmur Vascular exam: PRESENT: normal capillary refill. ABSENT: pallor GI/Abdominal exam: PRESENT: normal bowel sounds, soft. ABSENT: distended, guarding, mass, organolmegaly, rebound, tenderness Rectal exam: PRESENT: deferred Extremities exam: ABSENT: joint swelling, pedal edema, tenderness Musculoskeletal exam: PRESENT: normal inspection Neurological exam: PRESENT: alert, awake, oriented to person, oriented to place, oriented to time, oriented to situation, CN II-XII grossly intact. ABSENT: motor sensory deficit Psychiatric exam: PRESENT: appropriate affect, normal mood. ABSENT: homicidal ideation, suicidal ideation Skin exam: PRESENT: dry, warm Results Laboratory Results: 07/19/19 18:07 07/19/19 19:11 07/19/19 07/19/19 07/19/19 18:07 18:07 18:07 WBC 5.0 RBC 4.00 Hgb 11.7 L Hct 35.4 L MCV 89 MCH 29.3 MCHC 33.1 RDW 16.6 H Plt Count 249 Seg Neutrophils % 42.3 Sodium Cancelled Potassium Cancelled Chloride Cancelled Carbon Dioxide Cancelled Anion Gap Cancelled BUN Cancelled Creatinine Cancelled Est GFR ( Amer) Cancelled Est GFR (Non-Af Amer) Cancelled Glucose Cancelled Calcium Cancelled Magnesium Cancelled Total Bilirubin Cancelled AST Cancelled Alkaline Phosphatase Cancelled Total Protein Cancelled Albumin Cancelled TSH Free T4 Free T3 pg/mL 07/19/19 07/19/19 07/19/19 18:07 19:11 19:11 WBC RBC Hgb Hct MCV MCH MCHC RDW Plt Count Seg Neutrophils % Sodium 139.8 Potassium 4.2 Chloride 106 Carbon Dioxide 26 Anion Gap 8 BUN 38 H Creatinine 3.19 H Est GFR ( Amer) 18 L Est GFR (Non-Af Amer) Glucose 103 Calcium 8.7 Magnesium 2.2 Total Bilirubin 0.4 AST 28 Alkaline Phosphatase 83 Total Protein 6.7 Albumin 3.3 L TSH Cancelled 2.46 Free T4 Cancelled 1.40 Free T3 pg/mL Cancelled 2.32 L 07/19/19 07/19/19 07/19/19 18:07 18:07 19:11 Creatine Kinase Cancelled 293 H CK-MB (CK-2) Cancelled Troponin I Cancelled 07/19/19 19:11 Creatine Kinase CK-MB (CK-2) 1.93 Troponin I 0.058 Impressions: Head CT 07/19/19 18:16 IMPRESSION: No hemorrhage. No midline shift. Scattered Areas of low density in the white matter most likely due to chronic micro-vascular ischemic change. No evidence for acute large vessel infarction. EVIDENCE OF ACUTE STROKE: NO. Assessment & Plan - Diagnosis (1) New onset atrial fibrillation Plan: See admitting attending physician orders for details about care plan. (2) Syncope and collapse Is this a current diagnosis for this admission?: Yes Plan: See admitting attending physician orders for details about care plan. (3) Chronic kidney disease Qualifiers: Chronic kidney disease stage: stage 3 (moderate) Qualified Code(s): N18.3 - Chronic kidney disease, stage 3 (moderate) Is this a current diagnosis for this admission?: Yes Plan: See admitting attending physician orders for details about care plan. (4) Diabetes mellitus type 2 in obese Is this a current diagnosis for this admission?: Yes Plan: See admitting attending physician orders for details about care plan. (5) HTN (hypertension) Qualifiers: Hypertension type: essential hypertension Qualified Code(s): I10 - Essential (primary) hypertension Is this a current diagnosis for this admission?: Yes Plan: See admitting attending physician orders for details about care plan. (6) HLD (hyperlipidemia) Qualifiers: Hyperlipidemia type: unspecified Qualified Code(s): E78.5 - Hyperlipidemia, unspecified Is this a current diagnosis for this admission?: Yes Plan: See admitting attending physician orders for details about care plan. (7) Hypothyroidism Qualifiers: Hypothyroidism type: unspecified Qualified Code(s): E03.9 - Hypothyroidism, unspecified Is this a current diagnosis for this admission?: Yes Plan: See admitting attending physician orders for details about care plan. (8) Chronic gouty arthritis Is this a current diagnosis for this admission?: Yes Plan: See admitting attending physician orders for details about care plan. - Time Time Spent: Greater than 70 Minutes Medications reviewed and adjusted accordingly: Yes Anticipated discharge: Home Within: Other - Inpatient Certification Based on my medical assessment, after consideration of the patient's comorbidities, presenting symptoms, or acuity I expect that the services needed warrant INPATIENT care.: Yes I certify that my determination is in accordance with my understanding of Medicare's requirements for reasonable and necessary INPATIENT services [42 CFR 412.3e].: Yes Medical Necessity: Significant Comorbidiites Make Outpatient Treatment Too Risky, Need Close Monitoring Due to Risk of Patient Decompensation, Need For Continuous Telemetry Monitoring, Risk of Complication if Not Cared For in Hospital, Risk of Diagnosis Which Will Require Inpatient Eval/Care/Monitoring 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
--- NOTE | 2019-07-20 22:52 | PDOC PROGRESS REPORT ---
Subjective Progress Note for:: 07/20/19 Subjective:: No chest pain or difficulty with breathing. No recurrent syncope, vertigo, or dizziness. No nausea or vomiting. No fever or chills. Reason For Visit: NEW ONSET AFIB,DMT2,HTN,CKD STAGE 4 Physical Exam Vital Signs: Temp Pulse Resp BP Pulse Ox 97.9 F 80 16 153/88 H 95 07/20/19 07:16 07/20/19 14:00 07/20/19 07:16 07/20/19 07:16 07/20/19 07:16 Intake & Output 07/19/19 07/20/19 07/21/19 06:59 06:59 06:59 Intake Total 50 720 Balance 50 720 Weight 56.3 kg General appearance: PRESENT: no acute distress, morbidly obese Head exam: PRESENT: atraumatic, normocephalic Eye exam: PRESENT: conjunctiva pink. ABSENT: scleral icterus Ear exam: PRESENT: normal external ear exam Mouth exam: PRESENT: moist Respiratory exam: PRESENT: clear to auscultation hans Cardiovascular exam: PRESENT: irregular rhythm, +S1, +S2 Vascular exam: ABSENT: pallor GI/Abdominal exam: PRESENT: normal bowel sounds, soft. ABSENT: distended, guarding, mass, organolmegaly, rebound, tenderness Extremities exam: ABSENT: pedal edema Neurological exam: PRESENT: alert, awake, oriented to person, oriented to place, oriented to time, oriented to situation, CN II-XII grossly intact. ABSENT: motor sensory deficit Psychiatric exam: PRESENT: appropriate affect, normal mood. ABSENT: homicidal ideation, suicidal ideation Skin exam: PRESENT: dry, warm Results Laboratory Results: 07/20/19 04:27 07/20/19 04:27 07/19/19 07/19/19 07/19/19 19:11 19:11 21:30 WBC RBC Hgb Hct MCV MCH MCHC RDW Plt Count Seg Neutrophils % Sodium 139.8 Potassium 4.2 Chloride 106 Carbon Dioxide 26 Anion Gap 8 BUN 38 H Creatinine 3.19 H Est GFR ( Amer) 18 L Glucose 103 Calcium 8.7 Magnesium 2.2 Total Bilirubin 0.4 AST 28 Alkaline Phosphatase 83 Total Protein 6.7 Albumin 3.3 L Triglycerides Cholesterol LDL Cholesterol Direct VLDL Cholesterol HDL Cholesterol TSH 2.46 Free T4 1.40 Free T3 pg/mL 2.32 L Urine Color YELLOW Urine Appearance SLIGHTLY-CLOUDY Urine pH 5.0 Ur Specific [place] 1.015 Urine Protein >=500 H Urine Glucose (UA) NEGATIVE Urine Ketones NEGATIVE Urine Blood NEGATIVE Urine Nitrite NEGATIVE Ur Leukocyte Esterase NEGATIVE Urine WBC (Auto) 6 Urine RBC (Auto) 1 07/20/19 07/20/19 04:27 04:27 WBC 5.2 RBC 3.51 L Hgb 10.4 L Hct 30.9 L MCV 88 MCH 29.6 MCHC 33.7 RDW 16.4 H Plt Count 197 Seg Neutrophils % 38.1 L Sodium 142.0 Potassium 3.4 L Chloride 107 Carbon Dioxide 25 Anion Gap 10 BUN 36 H Creatinine 3.13 H Est GFR ( Amer) 18 L Glucose 112 H Calcium 8.8 Magnesium Total Bilirubin 0.3 AST 25 Alkaline Phosphatase 84 Total Protein 6.6 Albumin 3.3 L Triglycerides 120 Cholesterol 147.09 LDL Cholesterol Direct 70 VLDL Cholesterol 24.0 HDL Cholesterol 38 L TSH Free T4 Free T3 pg/mL Urine Color Urine Appearance Urine pH Ur Specific [place] Urine Protein Urine Glucose (UA) Urine Ketones Urine Blood Urine Nitrite Ur Leukocyte Esterase Urine WBC (Auto) Urine RBC (Auto) 07/19/19 07/19/19 07/19/19 18:07 18:07 19:11 Creatine Kinase Cancelled 293 H CK-MB (CK-2) Cancelled Troponin I Cancelled 07/19/19 19:11 Creatine Kinase CK-MB (CK-2) 1.93 Troponin I 0.058 Impressions: Head CT 07/19/19 18:16 IMPRESSION: No hemorrhage. No midline shift. Scattered Areas of low density in the white matter most likely due to chronic micro-vascular ischemic change. No evidence for acute large vessel infarction. EVIDENCE OF ACUTE STROKE: NO. Carotid Doppler Study 07/20/19 00:00 IMPRESSION: Mild bilateral atherosclerotic plaque without hemodynamically significant stenosis. Assessment & Plan - Diagnosis (1) New onset atrial fibrillation Is this a current diagnosis for this admission?: Yes Plan: Continue current medication management. Consider discontinuing Plavix before discharge to reduce risk of severe bleeding complication. Her Plavix for management of her prior stroke event. (2) Syncope and collapse Is this a current diagnosis for this admission?: Yes Plan: Follow up on carotid duplex and echocardiogram evaluation. (3) Chronic kidney disease Qualifiers: Chronic kidney disease stage: stage 4 (severe) Qualified Code(s): N18.4 - Chronic kidney disease, stage 4 (severe) Is this a current diagnosis for this admission?: Yes Plan: Continue current medication management. (4) Diabetes mellitus type 2 in obese Is this a current diagnosis for this admission?: Yes Plan: Continue current medication management. (5) HTN (hypertension) Qualifiers: Hypertension type: essential hypertension Qualified Code(s): I10 - Essential (primary) hypertension Is this a current diagnosis for this admission?: Yes Plan: Continue current medication management. (6) HLD (hyperlipidemia) Qualifiers: Hyperlipidemia type: unspecified Qualified Code(s): E78.5 - Hyperlipidemia, unspecified Is this a current diagnosis for this admission?: Yes Plan: Continue current medication management. (7) Hypothyroidism Qualifiers: Hypothyroidism type: unspecified Qualified Code(s): E03.9 - Hypothyroidism, unspecified Is this a current diagnosis for this admission?: Yes Plan: Continue current medication management. (8) Chronic gouty arthritis Is this a current diagnosis for this admission?: Yes Plan: Continue current medication management. - Time Time Spent with patient: 25-34 minutes Medications reviewed and adjusted accordingly: Yes Anticipated discharge: Home Within: Other - Inpatient Certification Based on my medical assessment, after consideration of the patient's comorbidities, presenting symptoms, or acuity I expect that the services needed warrant INPATIENT care.: Yes I certify that my determination is in accordance with my understanding of Medicare's requirements for reasonable and necessary INPATIENT services [42 CFR 412.3e].: Yes Medical Necessity: Significant Comorbidiites Make Outpatient Treatment Too Risky, Need Close Monitoring Due to Risk of Patient Decompensation, Need For IV Fluids, Need For Continuous Telemetry Monitoring, Risk of Complication if Not Cared For in Hospital, Risk of Diagnosis Which Will Require Inpatient Eval/Care/Monitoring 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 Follow up on echocardiogram findings.
[2019-07-21] MEDS: DILTIAZEM HCL 30 MG TABLET PO SCH ×2 (02:45→10:32)
[2019-07-21] MEDS: ACETAMINOPHEN 325 MG TABLET PO PRN (06:00)
[2019-07-21] MEDS: PANTOPRAZOLE SODIUM 40 MG TABLET.DR PO SCH (06:00)
[2019-07-21] MEDS: INSULIN LISPRO 100 UNIT/ML 3 ML VIAL SUBCUT SCH ×2 (08:11→11:43)
[2019-07-21] MEDS: APIXABAN 5 MG TABLET PO SCH (10:32)
[2019-07-21 16:00] VITALS: BP 151/85
--- NOTE | 2019-07-22 21:08 | XCELERA REPORT ---
[address] [address] Transthoracic Echocardiogram Report Name: DOMINGA RIBERA Age: 69 yrs Gender: Female : 1950 Patient Status: Inpatient Patient Location: [address] [place], [place] [address] Study Date: 07/20/2019 10:23 AM Height: 67 in Weight: 250 lb BSA: 2.2 m2 Procedure: A two-dimensional transthoracic echocardiogram with color flow and Doppler was performed. The study was technically difficult with many images being suboptimal in quality. Reason For Study: New onset Afib. History: New onset Afib. Ordering Physician: DI MANCINI Performed By: Kell Batres Interpretation Summary The left ventricle is normal in size. There is borderline asymmetric left ventricular hypertrophy. No LVOT obstruction and no 'RONNA'.Hence no IHSS. LV EF is >60% Left ventricular systolic function is normal. Doppler measurements suggest impaired left ventricular relaxation, which is associated with grade I/IV or mild diastolic dysfunction The left ventricular wall motion is normal. There is no thrombus. Cannot assess for ASD ,VSD . or PFO. The right ventricle is not well visualized secondary to technical limitations The right atrium is normal. The left atrial size is normal. There is no evidence of mitral valve prolapse. There is no vegetation seen on the mitral valve. There is no mitral valve stenosis. There is a trace amount of mitral regurgitation There is no aortic valvular vegetation. There is no aortic valve stenosis There is aortic sclerosis without aortic stenosis. There is no LVOT obstruction. No aortic regurgitation is present. There is no tricuspid stenosis. There is a trace to mild amount of tricuspid regurgitation There is mild to moderate pulmonary hypertension by echo RVSP is 43 to 48 mm of Hg , with RA mean of 5 to 10. There is no pulmonic valvular stenosis. There is a trace amount of pulmonic regurgitation The aortic root is normal size. The inferior vena cava appeared normal and decreased > 50% with respiration (RAP 5-10 mmHg) There is no pericardial effusion. MMode/2D Measurements & Calculations RVDd: 3.7 cm LVIDd: 6.1 cm FS: 44.6 % Ao root diam: 2.9 cm IVSd: 1.00 cm LVIDs: 3.4 cm EDV(Teich): 189.1 ml Ao root area: 6.4 cm2 LVPWd: 1.1 cm ESV(Teich): 47.3 ml EF(Teich): 75.0 % Doppler Measurements & Calculations MV E max mike: MV dec slope: Ao V2 max: LV V1 max P.0 cm/sec 421.1 cm/sec2 145.0 cm/sec 3.0 mmHg MV A max mike: MV dec time: 0.21 secAo max P.4 mmHgLV V1 max: 97.3 cm/sec 86.8 cm/sec MV E/A: 0.91 PA V2 max: PI end-d mike: TR max mike: 102.7 cm/sec 122.8 cm/sec 308.3 cm/sec PA max P.2 mmHg TR max P.2 mmHg Left Ventricle The left ventricle is normal in size. There is borderline asymmetric left ventricular hypertrophy. No LVOT obstruction and no 'RONNA'.Hence no IHSS. LV EF is >60%. Left ventricular systolic function is normal. Doppler measurements suggest impaired left ventricular relaxation, which is associated with grade I/IV or mild diastolic dysfunction. The left ventricular wall motion is normal. There is no thrombus. Cannot assess for ASD ,VSD . or PFO. Right Ventricle The right ventricle is not well visualized secondary to technical limitations. Atria The right atrium is normal. The left atrial size is normal. Mitral Valve There is no evidence of mitral valve prolapse. There is no vegetation seen on the mitral valve. There is no mitral valve stenosis. There is a trace amount of mitral regurgitation. Aortic Valve There is no aortic valvular vegetation. There is no aortic valve stenosis. There is aortic sclerosis without aortic stenosis. There is no LVOT obstruction. No aortic regurgitation is present. Tricuspid Valve There is no tricuspid stenosis. There is a trace to mild amount of tricuspid regurgitation. There is mild to moderate pulmonary hypertension by echo. RVSP is 43 to 48 mm of Hg , with RA mean of 5 to 10. Pulmonic Valve There is no pulmonic valvular stenosis. There is a trace amount of pulmonic regurgitation. Great Vessels The aortic root is normal size. The inferior vena cava appeared normal and decreased > 50% with respiration (RAP 5-10 mmHg). Effusions There is no pericardial effusion. : DI MANCINI Lakshmi
--- NOTE | 2019-09-14 19:59 | PDOC DISCHARGE SUMMARY ---
Impression - Admit/DC Date/PCP Admission Date/Primary Care Provider: 07/19/19 20:53 DI MANCINI MD Discharge Date: 07/21/19 - Discharge Diagnosis (1) New onset atrial fibrillation Is this a current diagnosis for this admission?: Yes (2) Syncope and collapse Is this a current diagnosis for this admission?: Yes (3) Chronic kidney disease Is this a current diagnosis for this admission?: Yes (4) Diabetes mellitus type 2 in obese Is this a current diagnosis for this admission?: Yes (5) HTN (hypertension) Is this a current diagnosis for this admission?: Yes (6) HLD (hyperlipidemia) Is this a current diagnosis for this admission?: Yes (7) Hypothyroidism Is this a current diagnosis for this admission?: Yes (8) Chronic gouty arthritis Is this a current diagnosis for this admission?: Yes (9) Morbid obesity with BMI of 45.0-49.9, adult Is this a current diagnosis for this admission?: Yes - Assessment Summary: Patient as admitted for syncope and collapse. She was diagnosed with new onset Atrial fibrillation and treated appropriately with Cardizem infusion and oral anticoagulation therapy on Eliquis. Her cerebrovascular workup did not reveal possible embolic source. She was transition to oral Cardizem and discharge home on same. She will follow up in the office as instructed upon discharge. - Additional Information Resuscitation Status: Full Code Discharge Diet: Cardiac, Diabetic Discharge Activity: Activity As Tolerated, Slowly Increase Activity Referrals: Caroline TINSLEY MD [ACTIVE STAFF] - Follow up as needed DI MANCINI MD [ACTIVE STAFF] - 07/27/19 10:00 am Prescriptions: Diltiazem HCl [Cardizem Cd 120 mg Capsule] 1 cap.sr PO DAILY #30 cap.sr Apixaban [Eliquis 5 mg Tablet] 5 mg PO BID #60 tablet Home Medications: Allopurinol [Zyloprim 100 mg Tablet] 100 mg PO DAILY 07/20/19 Alpha Lipoic Acid [Alpha Lipoic Acid 300 mg Capsule] 300 mg PO DAILY 07/20/19 Ascorbic Acid [C-500] 500 mg PO DAILY 07/20/19 Calcitriol [Rocaltrol 0.25 mcg Capsule] 0.25 mcg PO DAILY 07/20/19 Carvedilol [Coreg 6.25 mg Tablet] 6.25 mg PO Q12 07/20/19 Cholecalciferol (Vitamin D3) [Vitamin D3 5000 unit Capsule] 5,000 unit PO DAILY 07/20/19 Levothyroxine Sodium [Synthroid 0.088 mg Tablet] 0.088 mg PO Q6AM 07/20/19 Losartan Potassium [Cozaar 25 mg Tablet] 25 mg PO DAILY 07/20/19 Rosuvastatin Calcium [Crestor 5 mg Tablet] 5 mg PO QHS 07/20/19 Semaglutide [Ozempic] 1 mg SQ Q7D 07/20/19 Ubidecarenone/Vit E Acet [Co Q-10 100 mg Softgel] 1 cap PO DAILY 07/20/19 Vitamin E (Dl, Acetate) [Vitamin E 400 Unit Capsule] 400 mg PO TID 07/20/19 Apixaban [Eliquis 5 mg Tablet] 5 mg PO BID #60 tablet 07/21/19 Diltiazem HCl [Cardizem Cd 120 mg Capsule] 1 cap.sr PO DAILY #30 cap.sr 07/21/19 History of Present Illiness History of Present Illness: DOMINGA RIBERA is a 69 year old female patient known to my practice who presented to the ED via EMS from [facility] where she had episode of syncope. Patient reported that she was standing in line at the [facility] when she started feeling sick, nauseous, vomited and woke up on the floor. She denied any preceding chest pain, dizziness, shortness of breath, palpitation or irregular heart beats. She denied any prior knowledge of event or history of atrial fibrillation. Her morbidities include prior stroke without significant motor deficit, diabetes mellitus type 2, hypertension, and chronic kidney disease. EMS crew reported on site atrial fibrillation with rapid ventricular rate in the region of 175/minute. She was treated with Cardizem 25 mg administered IV en route to the ED. In the ED her initial heart rate was in the region of 97/minute. Her initial evaluation in the ED was remarkable for persistence of her atrial fibrillation, slightly elevated cardiac enzymes, hypokalemia, and chronic kidney disease. She was advised hospitalization for further evaluation and management. Her morbidities are as listed below. Hospital Course Hospital Course: Patient as admitted for syncope and collapse. She was diagnosed with new onset Atrial fibrillation and treated appropriately with Cardizem infusion and oral anticoagulation therapy on Eliquis. Her cerebrovascular workup did not reveal possible embolic source. She was transition to oral Cardizem and discharge home on same. She will follow up in the office as instructed upon discharge. Physical Exam Vital Signs: Temp Pulse Resp BP Pulse Ox 97.8 F 67 16 122/74 99 07/21/19 11:21 07/21/19 14:00 07/21/19 11:21 07/21/19 11:21 07/21/19 11:21 Intake & Output 07/20/19 07/21/19 07/22/19 06:59 06:59 06:59 Intake Total 50 920 480 Balance 50 920 480 Weight 56.3 kg 131 kg 131 kg General appearance: PRESENT: no acute distress, morbidly obese Head exam: PRESENT: atraumatic, normocephalic Eye exam: PRESENT: conjunctiva pink. ABSENT: pallor, scleral icterus Ear exam: PRESENT: normal external ear exam Mouth exam: PRESENT: moist Respiratory exam: PRESENT: clear to auscultation hans Cardiovascular exam: PRESENT: irregular rhythm, +S1, +S2 GI/Abdominal exam: PRESENT: normal bowel sounds, soft. ABSENT: distended, guarding, mass, organomegaly, rebound, tenderness Extremities exam: ABSENT: pedal edema Neurological exam: PRESENT: alert, awake, oriented to person, oriented to place, oriented to time, oriented to situation, CN II-XII grossly intact. ABSENT: motor sensory deficit Psychiatric exam: PRESENT: appropriate affect, normal mood. ABSENT: homicidal ideation, suicidal ideation Skin exam: PRESENT: dry, warm Results Laboratory Results: WBC 5.2 10^3/uL (4.0-10.5) 07/20/19 04:27 RBC 3.51 10^6/uL (3.72-5.28) L 07/20/19 04:27 Hgb 10.4 g/dL (12.0-15.5) L 07/20/19 04:27 Hct 30.9 % (36.0-47.0) L 07/20/19 04:27 MCV 88 fl (80-97) 07/20/19 04:27 MCH 29.6 pg (27.0-33.4) 07/20/19 04:27 MCHC 33.7 g/dL (32.0-36.0) 07/20/19 04:27 RDW 16.4 % (11.5-14.0) H 07/20/19 04:27 Plt Count 197 10^3/uL (150-450) 07/20/19 04:27 Lymph % (Auto) 46.0 % (13-45) H 07/20/19 04:27 Barber % (Auto) 13.9 % (3-13) H 07/20/19 04:27 Eos % (Auto) 1.0 % (0-6) 07/20/19 04:27 Baso % (Auto) 1.0 % (0-2) 07/20/19 04:27 Absolute Neuts (auto) 2.0 10^3/uL (1.7-8.2) 07/20/19 04:27 Absolute Lymphs (auto) 2.4 10^3/uL (0.5-4.7) 07/20/19 04:27 Absolute Monos (auto) 0.7 10^3/uL (0.1-1.4) 07/20/19 04:27 Absolute Eos (auto) 0.1 10^3/uL (0.0-0.6) 07/20/19 04:27 Absolute Basos (auto) 0.1 10^3/uL (0.0-0.2) 07/20/19 04:27 Seg Neutrophils % 38.1 % (42-78) L 07/20/19 04:27 Sodium 142.0 mmol/L (137-145) 07/20/19 04:27 Potassium 3.4 mmol/L (3.6-5.0) L 07/20/19 04:27 Chloride 107 mmol/L (98-107) 07/20/19 04:27 Carbon Dioxide 25 mmol/L (22-30) 07/20/19 04:27 Anion Gap 10 (5-19) 07/20/19 04:27 BUN 36 mg/dL (7-20) H 07/20/19 04:27 Creatinine 3.13 mg/dL (0.52-1.25) H 07/20/19 04:27 Est GFR ( Amer) 18 (>60) L 07/20/19 04:27 Est GFR (Non-Af Amer) Cancelled 07/19/19 18:07 Est GFR (MDRD) Non-Af 15 (>60) L 07/20/19 04:27 Glucose 112 mg/dL (75-110) H 07/20/19 04:27 POC Glucose 135 mg/dL (70-110) H 07/21/19 11:21 Hemoglobin A1c % 7.1 % (4.7-6.0) H 07/20/19 04:27 Calcium 8.8 mg/dL (8.4-10.2) 07/20/19 04:27 Magnesium 2.2 mg/dL (1.6-2.3) 07/19/19 19:11 Total Bilirubin 0.3 mg/dL (0.2-1.3) 07/20/19 04:27 Direct Bilirubin 0.1 mg/dL (0.0-0.4) 07/20/19 04:27 Neonat Total Bilirubin Not Reportable 07/20/19 04:27 Neonat Direct Bilirubin Not Reportable 07/20/19 04:27 Neonat Indirect Bili Not Reportable 07/20/19 04:27 AST 25 U/L (14-36) 07/20/19 04:27 ALT 12 U/L (<35) 07/20/19 04:27 Alkaline Phosphatase 84 U/L (38-126) 07/20/19 04:27 Creatine Kinase 293 U/L (30-135) H 07/19/19 19:11 CK-MB (CK-2) 1.93 ng/mL (<4.55) 07/19/19 19:11 Troponin I 0.058 ng/mL 07/19/19 19:11 Total Protein 6.6 g/dL (6.3-8.2) 07/20/19 04:27 Albumin 3.3 g/dL (3.5-5.0) L 07/20/19 04:27 Triglycerides 120 mg/dL (<150) 07/20/19 04:27 Cholesterol 147.09 mg/dL (0-200) 07/20/19 04:27 LDL Cholesterol Direct 70 mg/dL (<100) 07/20/19 04:27 VLDL Cholesterol 24.0 mg/dL (10-31) 07/20/19 04:27 HDL Cholesterol 38 mg/dL (>40) L 07/20/19 04:27 EGFR Cancelled 07/19/19 18:07 TSH 2.46 uIU/mL (0.47-4.68) 07/19/19 19:11 Free T4 1.40 ng/dL (0.78-2.19) 07/19/19 19:11 Free T3 pg/mL 2.32 pg/mL (2.77-5.27) L 07/19/19 19:11 Urine Color YELLOW 07/19/19 21:30 Urine Appearance SLIGHTLY-CLOUDY 07/19/19 21:30 Urine pH 5.0 (5.0-9.0) 07/19/19 21:30 Ur Specific [place] 1.015 07/19/19 21:30 Urine Protein >=500 mg/dL (NEGATIVE) H 07/19/19 21:30 Urine Glucose (UA) NEGATIVE mg/dL (NEGATIVE) 07/19/19 21:30 Urine Ketones NEGATIVE mg/dL (NEGATIVE) 07/19/19 21:30 Urine Blood NEGATIVE (NEGATIVE) 07/19/19 21:30 Urine Nitrite NEGATIVE (NEGATIVE) 07/19/19 21:30 Urine Bilirubin NEGATIVE (NEGATIVE) 07/19/19 21:30 Urine Urobilinogen NEGATIVE mg/dL (<2.0) 07/19/19 21:30 Ur Leukocyte Esterase NEGATIVE (NEGATIVE) 07/19/19 21:30 Urine WBC (Auto) 6 /HPF 07/19/19 21:30 Urine RBC (Auto) 1 /HPF 07/19/19 21:30 Urine Bacteria (Auto) TRACE /HPF 07/19/19 21:30 Squamous Epi Cells Auto 3 /HPF 07/19/19 21:30 Urine Mucus (Auto) RARE /LPF 07/19/19 21:30 Urine Ascorbic Acid NEGATIVE (NEGATIVE) 07/19/19 21:30 Urine Opiates Screen NEGATIVE 07/19/19 21:30 Urine Methadone Screen NEGATIVE 07/19/19 21:30 Ur Barbiturates Screen NEGATIVE 07/19/19 21:30 Ur Phencyclidine Scrn NEGATIVE 07/19/19 21:30 Ur Amphetamines Screen NEGATIVE 07/19/19 21:30 U Benzodiazepines Scrn NEGATIVE 07/19/19 21:30 Urine Cocaine Screen NEGATIVE 07/19/19 21:30 U Marijuana (THC) Screen NEGATIVE 07/19/19 21:30 07/19/19 07/19/19 18:07 19:11 CK-MB (CK-2) Cancelled 1.93 Troponin I Cancelled 0.058 Impressions: Head CT 07/19/19 18:16 IMPRESSION: No hemorrhage. No midline shift. Scattered Areas of low density in the white matter most likely due to chronic micro-vascular ischemic change. No evidence for acute large vessel infarction. EVIDENCE OF ACUTE STROKE: NO. Carotid Doppler Study 07/20/19 00:00 IMPRESSION: Mild bilateral atherosclerotic plaque without hemodynamically significant stenosis. Plan Health Concerns: Medication administration compliance and lifestyle changes to reduce stroke and bleeding risk,\. Plan of Treatment: Discharge home on rate control medication and anticoagulation. Goals: Emphasized medication compliance and lifestyle changes. Fall prevention tips were discussed with patient during discharge bedside visit. Stroke Is this a Stroke Patient?: No Acute Heart Failure - Is this a Heart Failure Patient?: No
== END 2019-07-21 16:50 | disposition home or self-care (01) | DRG 309 ==
LOC: ER 17:55 → EH 20:53 → 3N 23:59
PROVIDERS: ADMIT Internal Medicine Geriatric Medicine; ATTEND Internal Medicine Geriatric Medicine
DX: I48.91 Unspecified atrial fibrillation (principal); Z68.42 Body mass index [BMI] 45.0-49.9, adult; R55 Syncope and collapse; I12.9 Hypertensive chronic kidney disease with stage 1 through stage 4 chronic kidney disease, or unspecified chronic kidney disease; E11.22 Type 2 diabetes mellitus with diabetic chronic kidney disease; M1A.9XX0 Chronic gout, unspecified, without tophus (tophi); N18.3 Chronic kidney disease, stage 3 (moderate); E78.5 Hyperlipidemia, unspecified; E03.9 Hypothyroidism, unspecified; E66.01 Morbid (severe) obesity due to excess calories; Z86.73 Personal history of transient ischemic attack (TIA), and cerebral infarction without residual deficits; Z91.040 Latex allergy status; Z79.02 Long term (current) use of antithrombotics/antiplatelets; Z79.899 Other long term (current) drug therapy; Z79.890 Hormone replacement therapy
CPT/HCPCS: 36415; 70450; 80053; 80061; 80307; 81001; 82550; 82553; 82962; 83036; 83735; 84439; 84443; 84481; 84484; 85025; 93005; 93010; 93306; 93880; 99285; J1815; J3490

== ENCOUNTER 2019-11-09 16:00 | Day surgery (SDC) | payer MEDICARE, BC ==
[~2019-11-09 16:00] MED LIST: DIPHENHYDRAMINE HCL 50 MG/ML VIAL ONE; EPINEPHRINE INJ 1 MG/10 ML DISP.SYRIN ONE; FENTANYL CITRATE INJ/PF 100 MCG/2 ML AMPUL ONE; FLUMAZENIL INJ 0.5 MG/5 ML VIAL ONE; GLUCAGON,HUMAN RECOMB 1 MG INJ ONE; MIDAZOLAM 2 MG/2 ML INJ ONE; NALOXONE HCL INJ/PF 0.4 MG/1 ML SDV ONE; ONDANSETRON HCL INJ/PF 4 MG/2 ML SDV ONE
--- NOTE | 2019-11-09 17:32 | Operative Report ---
Operative Report DATE OF SURGERY: 11/09/19 Operative Report: Pre-op diagnosis: Anemia Post-op diagnosis: 1. Grade a esophagitis 2. Polyps in the transverse and descending colon 3. Sigmoid diverticulosis 4. Internal hemorrhoids 5. Limited view of the left colon Surgery: Upper endoscopy with biopsy and Colonoscopy with polypectomy Medications: Versed 2mg, Fentanyl 100 Mcg IV push Tissue removed: Gastric antral and body biopsy, colon polyps Procedure: After informed consent obtained from patient, patient's pharynx was sprayed with Hurricane and conscious sedation was achieved. The upper endoscope was then inserted into the esophagus under direct vision and advanced into the stomach and further into the duodenum. Detailed examination of the duodenum, stomach and the esophagus was then performed. A digital rectal examination was performed and this was unremarkable. The colonoscope was inserted into the rectum and advanced to the cecum. The appendiceal orifice and the terminal ileum were both identified. The mucosa was examined into details as the colonoscope was slowly pulled out of the patient. The endoscope was retroflexed in the rectum. Patient tolerated the procedure well. Findings Esophagus: 2 small erosions were noted at the Z line consistent with grade a esophagitis. Stomach: Normal Duodenum: Normal Cecum: Normal Ascending colon: Normal Transverse colon: 4 polyps ranging from 4 to 10 mm were removed from the proximal and distal transverse colon with the cold and hot snare. Descending colon: 9 mm polyp removed with a hot snare Sigmoid colon: Multiple diverticuli were noted. View of the distal sigmoid was partially limited due to retained stool. Rectum: View was partially limited due to stool that could not be suctioned. Internal hemorrhoids were noted Plan: Await pathology, omeprazole 20 mg daily, repeat colonoscopy in 1 year OPERATION: EGD with biopsy, colonoscopy with polypectomy
[2019-11-09 18:18] VITALS: BP 181/92
== END 2019-11-09 18:20 | disposition home or self-care (01) ==
LOC: END 16:00
PROVIDERS: ATTEND Internal Medicine Gastroenterology
DX: Z12.11 Encounter for screening for malignant neoplasm of colon (principal); K20.9 Esophagitis, unspecified; K29.50 Unspecified chronic gastritis without bleeding; D12.3 Benign neoplasm of transverse colon; D12.4 Benign neoplasm of descending colon; K57.30 Diverticulosis of large intestine without perforation or abscess without bleeding; D53.9 Nutritional anemia, unspecified; K64.8 Other hemorrhoids; Z86.010 Personal history of colon polyps; Z79.899 Other long term (current) drug therapy; Z79.01 Long term (current) use of anticoagulants; E78.00 Pure hypercholesterolemia, unspecified; E03.9 Hypothyroidism, unspecified; Z86.73 Personal history of transient ischemic attack (TIA), and cerebral infarction without residual deficits; E11.22 Type 2 diabetes mellitus with diabetic chronic kidney disease; I12.0 Hypertensive chronic kidney disease with stage 5 chronic kidney disease or end stage renal disease; N18.6 End stage renal disease; I48.91 Unspecified atrial fibrillation; G62.9 Polyneuropathy, unspecified; Z91.040 Latex allergy status; E66.9 Obesity, unspecified; Z68.42 Body mass index [BMI] 45.0-49.9, adult
CPT/HCPCS: 43239; 45385; 82962; 88305 ×2; J2250; J3010; J0171; J1200; J1610; J2310; J2405; J3490

== ENCOUNTER → 2020-01-24 | Outpatient (CLI) | payer MEDICARE, BC ==
[2020-01-24 10:12] LABS: ABSOLUTE EOSINOPHILS # (AUTO) 0.3 10^3/uL (0.0-0.6); ABSOLUTE LYMPHOCYTES (AUTO) 1.7 10^3/uL (0.5-4.7); ABSOLUTE MONOCYTES (AUTO) 0.4 10^3/uL (0.1-1.4); ABSOLUTE NEUT (AUTO) 4.3 10^3/uL (1.7-8.2); BASOPHILS % (AUTO) 0.2 % (0-2); EOSINOPHILS % (AUTO) 4.1 % (0-6); HEMATOCRIT 34.1 % (36.0-47.0); HEMOGLOBIN 11.3 g/dL (12.0-15.5); LYMPHOCYTES % (AUTO) 25.8 % (13-45); MEAN CORPUSCULAR HEMOGLOBIN 29.8 pg (27.0-33.4); MEAN CORPUSCULAR HGB CONC 33.2 g/dL (32.0-36.0); MEAN CORPUSCULAR VOLUME 90 fl (80-97); MONOCYTES % (AUTO) 6.6 % (3-13); PLATELET COUNT 234 10^3/uL (150-450); RED CELL DISTRIBUTION WIDTH 16.3 % (11.5-14.0); SEGMENTED NEUTROPHILS % (AUTO) 63.3 % (42-78); TOTAL CELLS COUNTED % (AUTO) 100 %; WHITE BLOOD COUNT 6.8 10^3/uL (4.0-10.5)
[2020-01-24 10:23] LABS: APPEARANCE,URINE SLIGHTLY-CLOUDY; BILIRUBIN,URINE NEGATIVE (NEGATIVE); COLOR,URINE YELLOW; GLUCOSE, URINE 50 mg/dL (NEGATIVE); KETONES,URINE NEGATIVE (NEGATIVE); LEUKOCYTE ESTERASE,URINE NEGATIVE (NEGATIVE); NITRITE,URINE NEGATIVE (NEGATIVE); PROTEIN,URINE >=500 mg/dL (NEGATIVE); URINE SPECIFIC GRAVITY 1.013; UROBILINOGEN,URINE NEGATIVE mg/dL (<2.0)
[2020-01-24 10:36] LABS: ANION GAP 9 (5-19); BLOOD UREA NITROGEN 46 mg/dL (7-20); CALCIUM 9.3 mg/dL (8.4-10.2); CARBON DIOXIDE 26 mmol/L (22-30); CHLORIDE 106 mmol/L (98-107); GLUCOSE 124 mg/dL (75-110); PHOSPHORUS 4.5 mg/dL (2.5-4.5); POTASSIUM 3.8 mmol/L (3.6-5.0)
[2020-01-24 10:54] LABS: URINE CREATININE 178.7 mg/dL (15-278)
[2020-01-24 11:10] LABS: UR PRO/CREAT RATIO RESULT 2.4 mg/mg (0.0-0.2); URINE PROTEIN 429.9 mg/dL (<12)
== END ==
LOC: OD 09:41
PROVIDERS: ATTEND Internal Medicine Nephrology
DX: I12.9 Hypertensive chronic kidney disease with stage 1 through stage 4 chronic kidney disease, or unspecified chronic kidney disease (principal); N18.4 Chronic kidney disease, stage 4 (severe); E11.22 Type 2 diabetes mellitus with diabetic chronic kidney disease; R80.9 Proteinuria, unspecified; N25.0 Renal osteodystrophy; E66.9 Obesity, unspecified
CPT/HCPCS: 36415; 80048; 81001; 82570; 83970; 84100; 84156; 85025

== ENCOUNTER 2020-02-01 13:34 | Inpatient (IN) | payer MEDICARE, BC ==
--- NOTE | 2020-02-01 13:41 | ER Document Report ---
ED Medical Screen (RME) - General Chief Complaint: S/S of Possible Stroke Stated Complaint: POSSIBLE STROKE Time Seen by Provider: 02/01/20 13:37 Primary Care Provider: Caroline TINSLEY MD [Primary Care Provider] - Follow up as needed Information source: Patient, Relative Notes: Presents with left-sided facial droop, garbled speech and altered gait. Patient's family member states that they noticed her symptoms 20 minutes ago although they are uncertain when her symptoms started. Patient does have multiple underlying comorbidities. I have greeted and performed a rapid initial assessment of this patient. A comprehensive ED assessment and evaluation of the patient, analysis of test results and completion of the medical decision making process will be conducted by additional ED providers. TRAVEL OUTSIDE OF THE [place] IN LAST 30 DAYS: No - Related Data Allergies/Adverse Reactions: latex Allergy (Verified 11/30/17 08:33) Past Medical History - Past Medical History Cardiac Medical History: Reports: Hx Hypertension Denies: Hx Coronary Artery Disease, Hx Heart Attack Pulmonary Medical History: Denies: Hx Asthma, Hx Bronchitis, Hx COPD, Hx Pneumonia Neurological Medical History: Reports: Hx Cerebrovascular Accident - 2009. Denies: Hx Seizures Endocrine Medical History: Reports: Hx Diabetes Mellitus Type 2 Renal/ Medical History: Reports: Hx End Stage Renal Disease. Denies: Hx Peritoneal Dialysis Musculoskeltal Medical History: Denies Hx Arthritis - Immunizations Hx Diphtheria, Pertussis, Tetanus Vaccination: No Physical Exam - General General appearance: Alert Notes: Garbled speech, left-sided facial droop - Respiratory Respiratory status: No respiratory distress Doctor's Discharge - Discharge Referrals: Caroline TINSLEY MD [Primary Care Provider] - Follow up as needed
--- NOTE | 2020-02-01 14:07 | RADIOLOGY REPORT (SQ) ---
EXAM DESCRIPTION: CT HEAD WITHOUT IMAGES COMPLETED DATE/TIME: 02/01/2020 1:50 pm REASON FOR STUDY: AMS, speech garbled, gait change COMPARISON: None. TECHNIQUE: Axial images acquired through the brain without intravenous contrast. Images reviewed wi th bone, brain and subdural windows. Images stored on PACS. All CT scanners at this facility use dose modulation, iterative reconstruction, and/or weight based d osing when appropriate to reduce radiation dose to as low as reasonably achievable (ALARA). [facility]: Dose Right [facility]: CareDose [facility]: Dose Right [facility]: Teradose 4D [facility]: Flextrip RADIATION DOSE: CT Rad equipment meets quality standard of care and radiation dose reduction techniq ues were employed. CTDIvol: 53.2 mGy. DLP: 1044 mGy-cm.mGy. LIMITATIONS: None. FINDINGS: VENTRICLES: Prominent. CEREBRUM: No masses. No hemorrhage. No midline shift. Areas of low density in the white matter mos t likely due to chronic micro-vascular ischemic change. No evidence for acute infarction. CEREBELLUM: No masses. No hemorrhage. No alteration of density. No evidence for acute infarction. EXTRAAXIAL SPACES: Age-related involutional change. No fluid collections. No masses. ORBITS AND GLOBE: No intra- or extraconal masses. Normal contour of globe without masses. CALVARIUM: No fracture. PARANASAL SINUSES: No fluid or mucosal thickening. SOFT TISSUES: No mass or hematoma. OTHER: No other significant finding. IMPRESSION: CHRONIC CHANGES OF ATROPHY AND MICROVASCULAR ISCHEMIA. NO ACUTE PROCESS. EVIDENCE OF ACUTE STROKE: NO. COMMENT: Pertinent positive or negative findings of the imaging study reported as a CRITICAL EXAM capri ERICKSON NP at14:01 on 02/01/2020. Category of Critical Exam: Stroke alert TECHNICAL DOCUMENTATION: JOB ID: [id number] Quality ID # [id number]: Final reports with documentation of one or more dose reduction techniques (e.g., Au tomated exposure control, adjustment of the mA and/or kV according to patient size, use of iterative reconstruction technique) 2010 [employer]- All Rights Reserved Reading location - IP/workstation name: [email or web address]
[2020-02-01 14:12] LABS: ABSOLUTE BASOPHILS # (AUTO) 0.1 10^3/uL (0.0-0.2); ABSOLUTE EOSINOPHILS # (AUTO) 0.2 10^3/uL (0.0-0.6); ABSOLUTE LYMPHOCYTES (AUTO) 1.7 10^3/uL (0.5-4.7); ABSOLUTE MONOCYTES (AUTO) 0.5 10^3/uL (0.1-1.4); ABSOLUTE NEUT (AUTO) 3.5 10^3/uL (1.7-8.2); BASOPHILS % (AUTO) 1.9 % (0-2); HEMATOCRIT 33.3 % (36.0-47.0); HEMOGLOBIN 11.2 g/dL (12.0-15.5); LYMPHOCYTES % (AUTO) 28.5 % (13-45); MEAN CORPUSCULAR HEMOGLOBIN 30.3 pg (27.0-33.4); MEAN CORPUSCULAR HGB CONC 33.6 g/dL (32.0-36.0); MEAN CORPUSCULAR VOLUME 90 fl (80-97); MONOCYTES % (AUTO) 8.6 % (3-13); PLATELET COUNT 226 10^3/uL (150-450); RED BLOOD COUNT 3.69 10^6/uL (3.72-5.28); RED CELL DISTRIBUTION WIDTH 16.1 % (11.5-14.0); TOTAL CELLS COUNTED % (AUTO) 100 %
[2020-02-01 14:15] LABS: INTERNATIONAL RATION (INR) 2.25
[2020-02-01 14:17] LABS: PROTHROMBIN TIME 25.2 SEC (11.4-15.4)
[2020-02-01 14:18] LABS: PARTIAL THROMBOPLASTIN TIME 41.7 SEC (23.5-35.8)
--- NOTE | 2020-02-01 14:18 | RADIOLOGY REPORT (SQ) ---
EXAM DESCRIPTION: CHEST SINGLE VIEW IMAGES COMPLETED DATE/TIME: 02/01/2020 1:53 pm REASON FOR STUDY: AMS, speech garbled, gait change COMPARISON: None. EXAM PARAMETERS: NUMBER OF VIEWS: One view. TECHNIQUE: Single frontal radiographic view of the chest acquired. RADIATION DOSE: NA LIMITATIONS: None. FINDINGS: LUNGS AND PLEURA: No opacities, masses or pneumothorax. No pleural effusion. MEDIASTINUM AND HILAR STRUCTURES: No masses. Contour normal. HEART AND VASCULAR STRUCTURES: Heart normal in size. Normal vasculature. BONES: No acute findings. HARDWARE: None in the chest. OTHER: No other significant finding. IMPRESSION: NO ACUTE RADIOGRAPHIC FINDING IN THE CHEST. TECHNICAL DOCUMENTATION: JOB ID: [id number] 2010 [employer]- All Rights Reserved Reading location - IP/workstation name: [email or web address]
--- NOTE | 2020-02-01 14:28 | ER Document Report ---
ED General - General Chief Complaint: S/S of Possible Stroke Stated Complaint: POSSIBLE STROKE Time Seen by Provider: 02/01/20 13:37 Primary Care Provider: Caroline TINSLEY MD [Primary Care Provider] - Follow up as needed Mode of Arrival: Ambulatory Information source: Patient TRAVEL OUTSIDE OF THE [place] IN LAST 30 DAYS: No - HPI Onset: This morning - around 9am Onset/Duration: Sudden Quality of pain: No pain Severity: Moderate Pain Level: Denies Associated symptoms: Other - left sided facial droop, garbled speech, trouble ambulating Exacerbated by: Denies Relieved by: Denies Similar symptoms previously: Yes - with previous strokes Recently seen / treated by doctor: No Notes: 69 year old female with a history of AFib on Xarelto, HTN, HLD, DM, Prior TIAs here in the ER for concern of a possible stroke. The patient says she woke up around 6am and around 9am she started to notice she was having some trouble speaking. The patient went to a political science chair around noon and she then went to her sisters after that. While getting out of her car at her sisters, the patient was noted to have trouble ambulating and to have a facial droop and garbled speech. The patient's sister called 911 and the patient was brought to the ER for evaluation. - Related Data Allergies/Adverse Reactions: latex Allergy (Verified 11/30/17 08:33) Home Medications: BP, xeralto Past Medical History - General Information source: Patient, Relative - Social History Smoking Status: Never Smoker Frequency of alcohol use: None Drug Abuse: None Family History: Reviewed & Not Pertinent Patient has homicidal ideation: No - Past Medical History Cardiac Medical History: Reports: Hx Hypertension Denies: Hx Coronary Artery Disease, Hx Heart Attack Pulmonary Medical History: Denies: Hx Asthma, Hx Bronchitis, Hx COPD, Hx Pneumonia Neurological Medical History: Reports: Hx Cerebrovascular Accident - 2010. Denies: Hx Seizures Endocrine Medical History: Reports: Hx Diabetes Mellitus Type 2 Renal/ Medical History: Reports: Hx End Stage Renal Disease. Denies: Hx Peritoneal Dialysis Musculoskeletal Medical History: Denies Hx Arthritis - Immunizations Hx Diphtheria, Pertussis, Tetanus Vaccination: No Hx Pneumococcal Vaccination: 08/25/18 Review of Systems - Review of Systems Constitutional: No symptoms reported EENT: No symptoms reported Cardiovascular: No symptoms reported Respiratory: No symptoms reported Gastrointestinal: No symptoms reported Genitourinary: No symptoms reported Female Genitourinary: No symptoms reported Musculoskeletal: No symptoms reported Skin: No symptoms reported Hematologic/Lymphatic: No symptoms reported Neurological/Psychological: Other - left sided facial droop, garbled speech, mild left sided weakness -: Yes All other systems reviewed and negative Physical Exam - Vital signs Vitals: Resp Pulse Ox 17 99 02/01/20 13:56 02/01/20 13:56 - Notes Notes: GENERAL: Well-appearing, well-nourished and in no acute distress. HEAD: Atraumatic, normocephalic. EYES: Pupils equal round and reactive to light, extraocular movements intact, sclera anicteric, conjunctiva are normal. ENT: External ears normal, nares patent, oropharynx clear without exudates. Moist mucous membranes. NECK: Normal range of motion, supple without lymphadenopathy or JVD. LUNGS: Breath sounds clear to auscultation bilaterally and equal. No wheezes rales or rhonchi. HEART: Regular rate and rhythm without murmurs, rubs or gallops. ABDOMEN: Soft, nontender, normoactive bowel sounds. No guarding, no rebound. No masses appreciated. EXTREMITIES: Normal range of motion, no pitting or edema. No clubbing or cyanosis. NEUROLOGICAL: Garbled speech, left sided facial droop, otherwise cranial nerves II through XII grossly intact. Mild left sided weakness but able to hold left leg and arm against gravity. Gait not tested. NIH stroke scale of 3. PSYCH: Normal mood, normal affect. SKIN: Warm, Dry, normal turgor, no rashes or lesions noted. Course - Re-evaluation Re-evalutation: 02/01/20 15:52 The patient came to the ER outside outside the 4.5 hour TPA window and she is on an anticoagulant with an INR of 2.25. Neurologist at [facility] was consulted and he agreed the patient was not a TPA candidate. Plan is for MRA head and neck and MRI head to rule to large vessel occlusion and stroke since CT showed no acute process. Patient admitted to [facility] by her PCP. Patient's garbled speech and left sided facial droop seems to have improved since coming to the ER. - Vital Signs Vital signs: Temp Pulse Resp BP Pulse Ox 98.2 F 70 19 146/94 H 99 02/01/20 14:05 02/01/20 15:00 02/01/20 15:00 02/01/20 15:00 02/01/20 15:00 - Laboratory Result Diagrams: 02/01/20 14:05 02/01/20 14:05 Laboratory results interpreted by me: 02/01/20 02/01/20 02/01/20 14:05 14:05 14:05 RBC 3.69 L Hgb 11.2 L Hct 33.3 L RDW 16.1 H PT 25.2 H APTT 41.7 H BUN 48 H Creatinine 4.52 H Est GFR ( Amer) 12 L Est GFR (MDRD) Non-Af 10 L Glucose 112 H - Diagnostic Test Radiology reviewed: Image reviewed, Reports reviewed - EKG Interpretation by Me EKG shows normal: Sinus rhythm, [place], QRS Complexes, ST-T Waves Rate: Normal Rhythm: NSR When compared to previous EKG there are: No significant change Discharge - Discharge Clinical Impression: Weakness Stroke Qualifiers: CVA mechanism: unspecified Qualified Code(s): I63.9 - Cerebral infarction, unspecified Condition: Stable Disposition: ADMITTED INPATIENT Admitting Provider: [facility] Unit Admitted: IMCU Referrals: Caroline TINSLEY MD [Primary Care Provider] - Follow up as needed
[2020-02-01 14:31] LABS: ALBUMIN 3.7 g/dL (3.5-5.0); ALKALINE PHOSPHATASE 80 U/L (38-126); ANION GAP 8 (5-19); ASPARTATE AMINO TRANSFERASE 23 U/L (14-36); BILIRUBIN,DIRECT 0.2 mg/dL (0.0-0.4); BILIRUBIN,TOTAL 0.6 mg/dL (0.2-1.3); BLOOD UREA NITROGEN 48 mg/dL (7-20); CALCIUM 9.1 mg/dL (8.4-10.2); CARBON DIOXIDE 25 mmol/L (22-30); CHLORIDE 107 mmol/L (98-107); CREATINE KINASE 114 U/L (30-135); GLUCOSE 112 mg/dL (75-110); POTASSIUM 4.4 mmol/L (3.6-5.0); TOTAL PROTEIN 7.3 g/dL (6.3-8.2)
[2020-02-01 14:43] LABS: CREATINE KINASE MB 1.54 ng/mL (<4.55)
[2020-02-01 14:49] LABS: TROPONIN I 0.045 ng/mL
--- NOTE | 2020-02-01 19:02 | PDOC H&P ---
History of Present Illness Admission Date/PCP: 02/01/20 16:00 DI MANCINI MD Patient complains of: Abnormal speech History of Present Illness: DOMINGA RIBERA is a 69 year old female patient known to my practice who presented to the ED earlier today with new onset slurred speech and difficulty with swallowing water/fluid since around 6 am. Patient reported that she woke up this morning and noticed that se was drooling from side of her mouth at attempt of drinking water. She went about her daily chores including visit to her her dresser today. Her sister notice worsening clarity of her speech and alerted EMS for patient to come to the ED for further evaluation. Patient reported associated left facial droop and difficulty with walking. At the time of her arrival in the ED, she was outside of the time limit for intra-arterial thrombolytic intervention. Also, she is currently on Xarelto for chronic atrial fibrillation management and her coagulation parameters were elevated. Patient reported compliance with ehr medications. Her initial imaging evaluation with CT scan head did not reveal any acute pathologic process. She was advised hospitalization for further evaluation and management. Her morbidities are as listed below. Past Medical History Cardiac Medical History: Reports: Hypertension Denies: Coronary Artery Disease, Myocardial Infarction Pulmonary Medical History: Denies: Asthma, Bronchitis, Chronic Obstructive Pulmonary Disease (COPD), Pneumonia Neurological Medical History: Denies: Seizures Endocrine Medical History: Reports: Diabetes Mellitus Type 2 Renal/ Medical History: Reports: End Stage Renal Disease Musculoskeltal Medical History: Denies: Arthritis Psychiatric Medical History: Denies: Depression Hematology: Reports: Anemia Social History Smoking Status: Never Smoker Hx Recreational Drug Use: No - Advance Directive Resuscitation Status: Full Code Family History Family History: Reviewed & Not Pertinent Parental Family History Reviewed: Yes Children Family History Reviewed: Yes Sibling(s) Family History Reviewed.: Yes Medication/Allergy Home Medications: Allopurinol [Zyloprim 100 mg Tablet] 100 mg PO DAILY 07/20/19 Ascorbic Acid [C-500] 500 mg PO DAILY 07/20/19 Calcitriol [Rocaltrol 0.25 mcg Capsule] 0.25 mcg PO DAILY 07/20/19 Carvedilol [Coreg 6.25 mg Tablet] 6.25 mg PO Q12 07/20/19 Cholecalciferol (Vitamin D3) [Vitamin D3 5000 unit Capsule] 5,000 unit PO DAILY 07/20/19 Levothyroxine Sodium [Synthroid 0.088 mg Tablet] 0.088 mg PO Q6AM 07/20/19 Losartan Potassium [Cozaar 25 mg Tablet] 25 mg PO DAILY 07/20/19 Rosuvastatin Calcium [Crestor 5 mg Tablet] 5 mg PO QHS 07/20/19 Semaglutide [Ozempic] 1 mg SQ Q7D 07/20/19 Ubidecarenone/Vit E Acet [Co Q-10 100 mg Softgel] 1 cap PO DAILY 07/20/19 Apixaban [Eliquis 5 mg Tablet] 5 mg PO DAILY 11/09/19 Allergies/Adverse Reactions: latex Allergy (Verified 11/30/17 08:33) Review of Systems Constitutional: PRESENT: weakness. ABSENT: chills, fever(s), headache(s), weight gain, weight loss Eyes: ABSENT: visual disturbances Ears: ABSENT: hearing changes Cardiovascular: ABSENT: chest pain, dyspnea on exertion, edema, orthropnea, palpitations Respiratory: ABSENT: cough, hemoptysis Gastrointestinal: ABSENT: abdominal pain, constipation, diarrhea, hematemesis, hematochezia, nausea, vomiting Genitourinary: ABSENT: dysuria, hematuria Musculoskeletal: ABSENT: joint swelling Integumentary: ABSENT: rash, wounds Neurological: PRESENT: abnormal gait, abnormal speech, weakness - facial droop and right sided weakness. ABSENT: confusion, dizziness, focal weakness, syncope Psychiatric: ABSENT: anxiety, depression, homidical ideation, suicidal ideation Endocrine: ABSENT: cold intolerance, heat intolerance, polydipsia, polyuria Hematologic/Lymphatic: ABSENT: easy bleeding, easy bruising, lymphadenopathy Allergic/Immunologic: ABSENT: seasonal rhinorrhea Physical Exam Vital Signs: Temp Pulse Resp BP Pulse Ox 97.9 F 75 17 129/69 H 100 02/01/20 17:24 02/01/20 17:24 02/01/20 17:24 02/01/20 17:24 02/01/20 17:24 Intake & Output 01/31/20 02/01/20 02/02/20 06:59 06:59 06:59 Weight 128.8 kg General appearance: PRESENT: no acute distress, morbidly obese Head exam: PRESENT: atraumatic, normocephalic Eye exam: PRESENT: conjunctiva pink, EOMI, PERRLA. ABSENT: scleral icterus Ear exam: PRESENT: normal external ear exam Mouth exam: PRESENT: moist, tongue midline Teeth exam: PRESENT: edentulous - dentures in use Neck exam: PRESENT: full ROM. ABSENT: carotid bruit, JVD, lymphadenopathy, thy romegaly Respiratory exam: PRESENT: clear to auscultation hans Cardiovascular exam: PRESENT: irregular rhythm, +S1, +S2. ABSENT: diastolic murmur, rubs, systolic murmur Pulses: PRESENT: normal dorsalis pedis pul, +2 pedal pulses bilateral Vascular exam: PRESENT: normal capillary refill. ABSENT: pallor GI/Abdominal exam: PRESENT: normal bowel sounds, soft. ABSENT: distended, guarding, mass, organolmegaly, rebound, tenderness Rectal exam: PRESENT: deferred Extremities exam: ABSENT: pedal edema Neurological exam: PRESENT: alert, awake, oriented to person, oriented to place, oriented to time, oriented to situation, abnormal gait, other - slurred. ABSENT: CN II-XII grossly intact - left facial droop and decrease nasolabia fold prominence, motor sensory deficit Psychiatric exam: PRESENT: appropriate affect, normal mood. ABSENT: homicidal ideation, suicidal ideation Skin exam: PRESENT: dry, intact, warm. ABSENT: cyanosis, rash Results Laboratory Results: 02/01/20 14:05 02/01/20 14:05 02/01/20 02/01/20 14:05 14:05 WBC 6.0 RBC 3.69 L Hgb 11.2 L Hct 33.3 L MCV 90 MCH 30.3 MCHC 33.6 RDW 16.1 H Plt Count 226 Seg Neutrophils % 58.0 Sodium 139.6 Potassium 4.4 Chloride 107 Carbon Dioxide 25 Anion Gap 8 BUN 48 H Creatinine 4.52 H Est GFR ( Amer) 12 L Glucose 112 H Calcium 9.1 Total Bilirubin 0.6 AST 23 Alkaline Phosphatase 80 Total Protein 7.3 Albumin 3.7 02/01/20 02/01/20 14:05 14:05 Creatine Kinase 114 CK-MB (CK-2) 1.54 Troponin I 0.045 Impressions: Chest X-Ray 02/01/20 13:39 IMPRESSION: NO ACUTE RADIOGRAPHIC FINDING IN THE CHEST. Head CT 02/01/20 13:39 IMPRESSION: CHRONIC CHANGES OF ATROPHY AND MICROVASCULAR ISCHEMIA. NO ACUTE PROCESS. EVIDENCE OF ACUTE STROKE: NO. Assessment & Plan - Diagnosis (1) Acute cardioembolic stroke Is this a current diagnosis for this admission?: Yes Plan: See admitting attending physician orders for details about care plan. (2) Chronic atrial fibrillation Is this a current diagnosis for this admission?: Yes Plan: See admitting attending physician orders for details about care plan. (3) Diabetes mellitus type 2 in obese Is this a current diagnosis for this admission?: Yes Plan: See admitting attending physician orders for details about care plan. (4) CKD (chronic kidney disease) stage 5, GFR less than 15 ml/min Is this a current diagnosis for this admission?: Yes Plan: See admitting attending physician orders for details about care plan. (5) HTN (hypertension) Qualifiers: Hypertension type: essential hypertension Qualified Code(s): I10 - Essential (primary) hypertension Is this a current diagnosis for this admission?: Yes Plan: See admitting attending physician orders for details about care plan. (6) HLD (hyperlipidemia) Qualifiers: Hyperlipidemia type: unspecified Qualified Code(s): E78.5 - Hyperlipidemia, unspecified Is this a current diagnosis for this admission?: Yes Plan: See admitting attending physician orders for details about care plan. (7) Chronic gouty arthritis Is this a current diagnosis for this admission?: Yes Plan: See admitting attending physician orders for details about care plan. (8) Hypothyroidism Qualifiers: Hypothyroidism type: unspecified Qualified Code(s): E03.9 - Hypothyroidism, unspecified Is this a current diagnosis for this admission?: Yes Plan: See admitting attending physician orders for details about care plan. (9) BMI 40.0-44.9, adult Is this a current diagnosis for this admission?: Yes Plan: See admitting attending physician orders for details about care plan. - Time Time Spent: 50 to 70 Minutes Medications reviewed and adjusted accordingly: Yes Anticipated discharge: Home with Homehealth Within: Other - Inpatient Certification Based on my medical assessment, after consideration of the patient's comorbidities, presenting symptoms, or acuity I expect that the services needed warrant INPATIENT care.: Yes I certify that my determination is in accordance with my understanding of Medicare's requirements for reasonable and necessary INPATIENT services [42 CFR 412.3e].: Yes Medical Necessity: Significant Comorbidiites Make Outpatient Treatment Too Risky, Need Close Monitoring Due to Risk of Patient Decompensation, Need For Continuous Telemetry Monitoring, Need for Neurological Checks, Risk of Complication if Not Cared For in Hospital, Risk of Diagnosis Which Will Require Inpatient Eval/Care/Monitoring Post Hospital Care: D/C Mandrel Puller Documentation - Plan Summary Plan Summary: See admitting attending physician orders for details about care plan.
[2020-02-01] MEDS ORDERED: NORMAL SALINE 1000 ML 1,000 ML IV PRN (19:07)
[2020-02-01] MEDS ORDERED: LORAZEPAM INJ 2 MG/1 ML VIAL IV PRN (19:45)
--- NOTE | 2020-02-01 19:52 | RADIOLOGY REPORT (SQ) ---
EXAM DESCRIPTION: MRI HEAD WITHOUT IMAGES COMPLETED DATE/TIME: 02/01/2020 7:38 pm REASON FOR STUDY: STROKE COMPARISON: None. TECHNIQUE: Multiplanar imaging includes non-contrasted T1, T2, FLAIR, and diffusion with ADC map seq uences. Images stored on PACS. LIMITATIONS: None. FINDINGS: ANATOMY: No anomalies. Normal vascular flow voids. Pituitary fossa normal. CSF SPACES: Normal in size and contour. No hemorrhage. CEREBRUM: Sulci and gyri normal in size and contour. Areas of increased white matter signal on FLAIR imaging. Old lacunar infarction near the left lateral ventricle. No evidence of hemorrhage, mass, or extraaxial fluid collection. POSTERIOR FOSSA: No signal alteration. No hemorrhage. No edema, masses or mass effect. Internal chante tory canals, cerebello-pontine angles, mastoids normal. DIFFUSION IMAGING: There appears to be a small area of abnormal diffusion in the thalamus on the righ t on image 14 series 3. ORBITS: No masses. Globes normal. PARANASAL SINUSES: No fluid levels. Mucosa normal. OTHER: No other significant finding. IMPRESSION: 1. Cannot exclude an acute/subacute infarction in the thalamus on the right. Old left lacunar infarction. Chronic microvascular ischemia. EVIDENCE OF ACUTE STROKE: NO. TECHNICAL DOCUMENTATION: JOB ID: [id number] 2010 [employer] All Rights Reserved Reading location - IP/workstation name: [email or web address]
--- NOTE | 2020-02-01 19:53 | RADIOLOGY REPORT (SQ) ---
EXAM DESCRIPTION: MRA HEAD WITHOUT IMAGES COMPLETED DATE/TIME: 02/01/2020 7:38 pm REASON FOR STUDY: eval for large vessel occlusion COMPARISON: None. TECHNIQUE: Axial 3-D [id number]-yr-vfjpde acquisition imaging performed through the brain in the area of t he [place] of [place]. Images reformatted using 3-D MIPS. LIMITATIONS: None. FINDINGS: SOURCE IMAGES: No unexpected findings on source images. No large masses. 3-D MIP: No aneurysm. No occlusions. No significant stenosis. OTHER: No other significant finding. IMPRESSION: NORMAL MRA OF THE [place] OF [place]. TECHNICAL DOCUMENTATION: JOB ID: [id number] 2010 [employer]- All Rights Reserved Reading location - IP/workstation name: [email or web address]
--- NOTE | 2020-02-01 19:55 | RADIOLOGY REPORT (SQ) ---
EXAM DESCRIPTION: MRA NECK WITHOUT IMAGES COMPLETED DATE/TIME: 02/01/2020 7:45 pm REASON FOR STUDY: eval for large vessel occlusion COMPARISON: None. TECHNIQUE: Axial 2-D volume acquisition imaging through the extracranial carotid and vertebral arter ies with reformatting using 3-D MIPS. LIMITATIONS: None. FINDINGS: RIGHT CAROTID ARTERY: No stenosis or occlusive changes. Limited visualization of the orig in. LEFT CAROTID ARTERY: No stenosis or occlusive changes. Limited visualization of the origin. VERTEBRAL ARTERY: The extracranial portions of the vertebral basilar system are preserved without amadou nosis. No aneurysmal dilatation or dissection is seen. OTHER: No other significant finding. IMPRESSION: NO SIGNIFICANT STENOSIS. COMMENT: Quality ID #[id number]: Measurements of distal internal carotid diameter were used as the denomin ator for stenosis measurement. TECHNICAL DOCUMENTATION: JOB ID: [id number] 2010 [employer]- All Rights Reserved Reading location - IP/workstation name: [email or web address]
--- NOTE | 2020-02-01 20:33 | EKG REPORT ---
SEVERITY:- BORDERLINE ECG - SINUS RHYTHM BORDERLINE T WAVE ABNORMALITIES BORDERLINE PROLONGED QT INTERVAL : Confirmed by: Samantha Carrasco MD 01-Feb-2020 20:32:32
[2020-02-01] MEDS ORDERED: DEXTROSE 50%-WATER SYRINGE 12.5 GM/25 ML DOSE IV PRN (23:30)
[2020-02-01] MEDS ORDERED: GLUCAGON,HUMAN RECOMB 1 MG INJ IM PRN (23:30)
[2020-02-01] MEDS ORDERED: DEXTROSE 40% GEL 15 GM TUBE X 2 PO PRN (23:30)
[2020-02-01] MEDS ORDERED: DEXTROSE 40% GEL 15 GM TUBE PO PRN (23:30)
[2020-02-01] MEDS ORDERED: DEXTROSE 50%-WATER SYRINGE 25 GM/50 ML DOSE IV PRN (23:30)
[2020-02-02 01:47] LABS: CREATINE KINASE MB 1.22 ng/mL (<4.55); TROPONIN I 0.044 ng/mL
[2020-02-02] MEDS: ACETAMINOPHEN 325 MG TABLET PO PRN (03:17)
[2020-02-02 05:31] LABS: ARTERIAL BLOOD BASE EXCESS -1.4 mmol/L; ARTERIAL BLOOD H2CO3 1.27 mmol/L (1.05-1.35); ARTERIAL BLOOD HCO3 23.9 mmol/L (20-24); ARTERIAL BLOOD PCO2 42.3 mmHg (35-45); ARTERIAL BLOOD PH 7.37 (7.35-7.45); ARTERIAL BLOOD TOTAL CO2 25.2 mmol/L (21-25)
[2020-02-02 05:34] LABS: ARTERIAL BLOOD FIO2 21%
[2020-02-02] MEDS: PANTOPRAZOLE SODIUM 40 MG TABLET.DR PO SCH (05:53)
[2020-02-02 06:51] LABS: ABSOLUTE BASOPHILS # (AUTO) 0.1 10^3/uL (0.0-0.2); ABSOLUTE EOSINOPHILS # (AUTO) 0.2 10^3/uL (0.0-0.6); ABSOLUTE LYMPHOCYTES (AUTO) 2.2 10^3/uL (0.5-4.7); ABSOLUTE MONOCYTES (AUTO) 0.8 10^3/uL (0.1-1.4); ABSOLUTE NEUT (AUTO) 4.7 10^3/uL (1.7-8.2); EOSINOPHILS % (AUTO) 2.6 % (0-6); HEMATOCRIT 30.7 % (36.0-47.0); HEMOGLOBIN 10.1 g/dL (12.0-15.5); LYMPHOCYTES % (AUTO) 27.4 % (13-45); MEAN CORPUSCULAR VOLUME 91 fl (80-97); MONOCYTES % (AUTO) 9.9 % (3-13); PLATELET COUNT 206 10^3/uL (150-450); RED BLOOD COUNT 3.38 10^6/uL (3.72-5.28); RED CELL DISTRIBUTION WIDTH 16.4 % (11.5-14.0); SEGMENTED NEUTROPHILS % (AUTO) 59.1 % (42-78); TOTAL CELLS COUNTED % (AUTO) 100 %; WHITE BLOOD COUNT 7.9 10^3/uL (4.0-10.5)
[2020-02-02 07:12] LABS: ALBUMIN 3.2 g/dL (3.5-5.0); ALKALINE PHOSPHATASE 84 U/L (38-126); ANION GAP 6 (5-19); ASPARTATE AMINO TRANSFERASE 17 U/L (14-36); BILIRUBIN,TOTAL 0.3 mg/dL (0.2-1.3); BLOOD UREA NITROGEN 48 mg/dL (7-20); CALCIUM 8.9 mg/dL (8.4-10.2); CARBON DIOXIDE 24 mmol/L (22-30); CHLORIDE 110 mmol/L (98-107); CHOLESTEROL 135.85 mg/dL (0-200); CREATINE KINASE 102 U/L (30-135); GLUCOSE 125 mg/dL (75-110); POTASSIUM 3.6 mmol/L (3.6-5.0); TOTAL PROTEIN 6.5 g/dL (6.3-8.2); TRIGLYCERIDES 135 mg/dL (<150)
[2020-02-02 07:17] LABS: CREATINE KINASE MB 1.33 ng/mL (<4.55); TROPONIN I 0.041 ng/mL
[2020-02-02 07:27] LABS: DIRECT LDL 66 mg/dL (<100)
[2020-02-02] MEDS: INSULIN LISPRO 100 UNIT/ML 3 ML VIAL SUBCUT SCH ×4 (09:08→21:08)
[2020-02-02 14:08] LABS: CREATINE KINASE MB 1.03 ng/mL (<4.55); TROPONIN I 0.041 ng/mL
[2020-02-02] MEDS ORDERED: (PENDING PHARMACY ID) (Semaglutide [Ozempic] 1 MG) SUBCUT SCH (18:15)
--- NOTE | 2020-02-02 18:57 | PDOC PROGRESS REPORT ---
Subjective Progress Note for:: 02/02/20 Subjective:: No chest pain or difficulty with breathing. No nausea, vomiting or abdominal pain. Reason For Visit: ACUTE EMBOLIC STROKE,CHRONIC AFIB,DMT2,CKD STAGE 5 Physical Exam Vital Signs: Temp Pulse Resp BP Pulse Ox 98.1 F 83 18 152/84 H 100 02/02/20 16:17 02/02/20 16:17 02/02/20 16:17 02/02/20 16:17 02/02/20 16:17 Intake & Output 02/01/20 02/02/20 02/03/20 06:59 06:59 06:59 Intake Total 372 244 Balance 372 244 Weight 123.1 kg General appearance: PRESENT: morbidly obese Head exam: PRESENT: atraumatic, normocephalic Eye exam: PRESENT: conjunctiva pink. ABSENT: scleral icterus Ear exam: PRESENT: normal external ear exam Mouth exam: PRESENT: moist Teeth exam: PRESENT: edentulous - with dentures in use Respiratory exam: PRESENT: clear to auscultation hans Cardiovascular exam: PRESENT: RRR, +S1, +S2. ABSENT: diastolic murmur, rubs, systolic murmur Vascular exam: ABSENT: pallor GI/Abdominal exam: PRESENT: normal bowel sounds, soft. ABSENT: distended, guarding, mass, organolmegaly, rebound, tenderness Extremities exam: ABSENT: pedal edema Neurological exam: PRESENT: alert, awake, oriented to person, oriented to place, oriented to time, oriented to situation, abnormal gait - ambulate with walker assistance, CN II-XII grossly intact. ABSENT: motor sensory deficit Psychiatric exam: PRESENT: appropriate affect, normal mood. ABSENT: homicidal ideation, suicidal ideation Skin exam: PRESENT: dry, warm Results Laboratory Results: 02/02/20 06:36 02/02/20 06:36 02/02/20 02/02/20 02/02/20 05:18 06:36 06:36 WBC 7.9 RBC 3.38 L Hgb 10.1 L Hct 30.7 L MCV 91 MCH 30.0 MCHC 33.0 RDW 16.4 H Plt Count 206 Seg Neutrophils % 59.1 Carbonic Acid 1.27 HCO3/H2CO3 Ratio 18:1 ABG pH 7.37 ABG pCO2 42.3 ABG pO2 84.0 ABG HCO3 23.9 ABG O2 Saturation 96.0 ABG Base Excess -1.4 FiO2 21% Sodium 140.4 Potassium 3.6 Chloride 110 H Carbon Dioxide 24 Anion Gap 6 BUN 48 H Creatinine 4.31 H Est GFR ( Amer) 12 L Glucose 125 H Calcium 8.9 Total Bilirubin 0.3 AST 17 Alkaline Phosphatase 84 Total Protein 6.5 Albumin 3.2 L Triglycerides 135 Cholesterol 135.85 LDL Cholesterol Direct 66 VLDL Cholesterol 27.0 HDL Cholesterol 38 L 02/01/20 02/01/20 02/02/20 14:05 14:05 01:07 Creatine Kinase 114 102 CK-MB (CK-2) 1.54 Troponin I 0.045 02/02/20 02/02/20 02/02/20 01:07 06:36 06:36 Creatine Kinase 101 CK-MB (CK-2) 1.22 1.33 Troponin I 0.044 0.041 02/02/20 02/02/20 06:36 13:15 Creatine Kinase 102 CK-MB (CK-2) 1.03 Troponin I 0.041 Impressions: Head MRI 02/01/20 00:00 IMPRESSION: 1. Cannot exclude an acute/subacute infarction in the thalamus on the right. Old left lacunar infarction. Chronic microvascular ischemia. EVIDENCE OF ACUTE STROKE: NO. Chest X-Ray 02/01/20 13:39 IMPRESSION: NO ACUTE RADIOGRAPHIC FINDING IN THE CHEST. Head CT 02/01/20 13:39 IMPRESSION: CHRONIC CHANGES OF ATROPHY AND MICROVASCULAR ISCHEMIA. NO ACUTE PROCESS. EVIDENCE OF ACUTE STROKE: NO. Neck MRA 02/01/20 14:24 IMPRESSION: NO SIGNIFICANT STENOSIS. Brain MRI with MRA 02/01/20 14:25 IMPRESSION: NORMAL MRA OF THE [place] OF [place]. Assessment & Plan - Diagnosis (1) Acute cardioembolic stroke Is this a current diagnosis for this admission?: Yes (2) Chronic atrial fibrillation Is this a current diagnosis for this admission?: Yes (3) Diabetes mellitus type 2 in obese Is this a current diagnosis for this admission?: Yes (4) CKD (chronic kidney disease) stage 5, GFR less than 15 ml/min Is this a current diagnosis for this admission?: Yes (5) HTN (hypertension) Qualifiers: Hypertension type: essential hypertension Qualified Code(s): I10 - Essential (primary) hypertension Is this a current diagnosis for this admission?: Yes (6) HLD (hyperlipidemia) Qualifiers: Hyperlipidemia type: unspecified Qualified Code(s): E78.5 - Hyperlipidemia, unspecified Is this a current diagnosis for this admission?: Yes (7) Chronic gouty arthritis Is this a current diagnosis for this admission?: Yes (8) Hypothyroidism Qualifiers: Hypothyroidism type: unspecified Qualified Code(s): E03.9 - Hypothyroidism, unspecified Is this a current diagnosis for this admission?: Yes (9) BMI 40.0-44.9, adult Is this a current diagnosis for this admission?: Yes - Time Time Spent with patient: 25-34 minutes Level of Care: IMCU Medications reviewed and adjusted accordingly: Yes Anticipated discharge: Home with Homehealth Within: Other - Inpatient Certification Based on my medical assessment, after consideration of the patient's comorbidities, presenting symptoms, or acuity I expect that the services needed warrant INPATIENT care.: Yes I certify that my determination is in accordance with my understanding of Medicare's requirements for reasonable and necessary INPATIENT services [42 CFR 412.3e].: Yes Medical Necessity: Significant Comorbidiites Make Outpatient Treatment Too Risky, Need Close Monitoring Due to Risk of Patient Decompensation, Need For Continuous Telemetry Monitoring, Need for Neurological Checks, Risk of Complication if Not Cared For in Hospital, Risk of Diagnosis Which Will Require Inpatient Eval/Care/Monitoring Post 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 F/up on nephrology consultation.
[2020-02-02] MEDS: ASCORBIC ACID 500 MG TABLET PO SCH (19:44)
[2020-02-02] MEDS: CARVEDILOL 6.25 MG TABLET PO SCH (21:11)
[2020-02-02] MEDS: ATORVASTATIN CALCIUM 10 MG TABLET PO SCH (21:11)
[2020-02-02] MEDS ORDERED: INSULIN DEGLUDEC 100 UNIT SUBCUT SCH (22:00)
[2020-02-02] MEDS ORDERED: APIXABAN 5 MG TABLET PO SCH (22:00)
[2020-02-02] MEDS ORDERED: (PENDING PHARMACY ID) (Rosuvastatin Calcium [Crestor 5 Mg Tablet] 5 MG) PO SCH (22:00)
[2020-02-03] MEDS: LEVOTHYROXINE SODIUM 0.088 MG TABLET PO SCH (05:24)
[2020-02-03] MEDS: PANTOPRAZOLE SODIUM 40 MG TABLET.DR PO SCH (05:25)
[2020-02-03] MEDS: INSULIN LISPRO 100 UNIT/ML 3 ML VIAL SUBCUT SCH ×4 (08:30→21:38)
[2020-02-03] MEDS ORDERED: LOSARTAN POTASSIUM 25 MG TABLET PO SCH (10:00)
[2020-02-03] MEDS ORDERED: ASCORBIC ACID 500 MG PO SCH (10:00)
[2020-02-03] MEDS ORDERED: (PENDING PHARMACY ID) (Ubidecarenone/Vit E Acet [Co Q-10 100 Mg Softgel] 1 CAP) PO SCH (10:00)
[2020-02-03] MEDS ORDERED: (PENDING PHARMACY ID) (Diltiazem Hcl [Diltiazem 12hr Er] 120 MG) PO SCH (10:00)
[2020-02-03] MEDS ORDERED: ALPHA LIPOIC ACID 300 MG PO SCH (10:00)
[2020-02-03] MEDS ORDERED: LIRAGLUTIDE SQ SCH (10:00)
[2020-02-03] MEDS: AMLODIPINE BESYLATE 10 MG TABLET PO SCH (10:14)
[2020-02-03] MEDS: ALLOPURINOL 100 MG TABLET PO SCH (10:14)
[2020-02-03] MEDS: DILTIAZEM HCL 120 MG CAP.SR.24H PO SCH (10:14)
[2020-02-03] MEDS: CARVEDILOL 6.25 MG TABLET PO SCH ×2 (10:14→21:49)
[2020-02-03] MEDS: ASCORBIC ACID 500 MG TABLET PO SCH (10:14)
[2020-02-03] MEDS: VITAMIN E (DL, ACETATE) 400 UNIT CAPSULE PO SCH (10:14)
[2020-02-03] MEDS: RIVAROXABAN 10 MG TABLET PO SCH (10:14)
[2020-02-03] MEDS ORDERED: HYDRALAZINE HCL 10 MG TABLET PO PRN (12:10)
--- NOTE | 2020-02-03 13:01 | PDOC PROGRESS REPORT ---
Subjective Progress Note for:: 02/03/20 Subjective:: Patient reported difficulty with staying awake. She is on CPAP machine at home for RICHARD. She reported setting at 13/4 cm of H2O. No chest pain or difficulty with breathing. No nausea, vomiting or abdominal pain. PT staff reported need for walker and DOCUMENT ADVISOR service upon discharge. Blood pressure remain elevated. Reason For Visit: ACUTE EMBOLIC STROKE,CHRONIC AFIB,DMT2,CKD STAGE 5 Physical Exam Vital Signs: Temp Pulse Resp BP Pulse Ox 97.9 F 77 19 166/92 H 99 02/03/20 11:56 02/03/20 11:56 02/03/20 11:56 02/03/20 11:56 02/03/20 11:56 Intake & Output 02/02/20 02/03/20 02/04/20 06:59 06:59 06:59 Intake Total 372 252 120 Balance 372 252 120 Weight 123.1 kg 128.3 kg Physical Exam: General appearance: PRESENT: morbidly obese Head exam: PRESENT: atraumatic, normocephalic Eye exam: PRESENT: conjunctiva pink. ABSENT: pallor, scleral icterus Ear exam: PRESENT: normal external ear exam Mouth exam: PRESENT: moist Teeth exam: PRESENT: edentulous - with dentures in use Respiratory exam: PRESENT: clear to auscultation hans Cardiovascular exam: PRESENT: RRR, +S1, +S2. ABSENT: diastolic murmur, rubs, systolic murmur GI/Abdominal exam: PRESENT: normal bowel sounds, soft. ABSENT: distended, guarding, mass, organomegaly, rebound, tenderness Extremities exam: ABSENT: pedal edema Neurological exam: PRESENT: alert, awake, oriented to person, oriented to place, oriented to time, oriented to situation, abnormal gait - ambulate with walker assistance, CN II-XII grossly intact. ABSENT: motor sensory deficit Psychiatric exam: PRESENT: appropriate affect, normal mood. ABSENT: homicidal ideation, suicidal ideation Skin exam: PRESENT: dry, warm Results Laboratory Results: 02/02/20 06:36 02/02/20 06:36 02/01/20 02/01/20 02/02/20 14:05 14:05 01:07 Creatine Kinase 114 102 CK-MB (CK-2) 1.54 Troponin I 0.045 02/02/20 02/02/20 02/02/20 01:07 06:36 06:36 Creatine Kinase 101 CK-MB (CK-2) 1.22 1.33 Troponin I 0.044 0.041 02/02/20 02/02/20 06:36 13:15 Creatine Kinase 102 CK-MB (CK-2) 1.03 Troponin I 0.041 Impressions: Head MRI 02/01/20 00:00 IMPRESSION: 1. Cannot exclude an acute/subacute infarction in the thalamus on the right. Old left lacunar infarction. Chronic microvascular ischemia. EVIDENCE OF ACUTE STROKE: NO. Chest X-Ray 02/01/20 13:39 IMPRESSION: NO ACUTE RADIOGRAPHIC FINDING IN THE CHEST. Head CT 02/01/20 13:39 IMPRESSION: CHRONIC CHANGES OF ATROPHY AND MICROVASCULAR ISCHEMIA. NO ACUTE PROCESS. EVIDENCE OF ACUTE STROKE: NO. Neck MRA 02/01/20 14:24 IMPRESSION: NO SIGNIFICANT STENOSIS. Brain MRI with MRA 02/01/20 14:25 IMPRESSION: NORMAL MRA OF THE [place] OF [place]. Assessment & Plan - Diagnosis (1) Acute cardioembolic stroke Is this a current diagnosis for this admission?: Yes (2) Chronic atrial fibrillation Is this a current diagnosis for this admission?: Yes (3) Diabetes mellitus type 2 in obese Is this a current diagnosis for this admission?: Yes (4) CKD (chronic kidney disease) stage 5, GFR less than 15 ml/min Is this a current diagnosis for this admission?: Yes (5) HTN (hypertension) Qualifiers: Hypertension type: essential hypertension Qualified Code(s): I10 - Essential (primary) hypertension Is this a current diagnosis for this admission?: Yes (6) HLD (hyperlipidemia) Qualifiers: Hyperlipidemia type: unspecified Qualified Code(s): E78.5 - Hyperlipidemia, unspecified Is this a current diagnosis for this admission?: Yes (7) Chronic gouty arthritis Is this a current diagnosis for this admission?: Yes (8) Hypothyroidism Qualifiers: Hypothyroidism type: unspecified Qualified Code(s): E03.9 - Hypothyroidism, unspecified Is this a current diagnosis for this admission?: Yes (9) BMI 40.0-44.9, adult Is this a current diagnosis for this admission?: Yes - Time Time Spent with patient: 25-34 minutes Level of Care: IMCU Medications reviewed and adjusted accordingly: Yes Anticipated discharge: Home with Homehealth Within: Other - Inpatient Certification Based on my medical assessment, after consideration of the patient's comorbidities, presenting symptoms, or acuity I expect that the services needed warrant INPATIENT care.: Yes I certify that my determination is in accordance with my understanding of Medicare's requirements for reasonable and necessary INPATIENT services [42 CFR 412.3e].: Yes Medical Necessity: Significant Comorbidiites Make Outpatient Treatment Too Risky, Need Close Monitoring Due to Risk of Patient Decompensation, Need For Continuous Telemetry Monitoring, Risk of Complication if Not Cared For in Hospital, Risk of Diagnosis Which Will Require Inpatient Eval/Care/Monitoring Post Hospital 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 Start on use of CPAP while sleeping.
[2020-02-03] MEDS: ATORVASTATIN CALCIUM 10 MG TABLET PO SCH (21:49)
[2020-02-03] MEDS: ACETAMINOPHEN 325 MG TABLET PO PRN (21:49)
[2020-02-04] MEDS: PANTOPRAZOLE SODIUM 40 MG TABLET.DR PO SCH (05:41)
[2020-02-04] MEDS: LEVOTHYROXINE SODIUM 0.088 MG TABLET PO SCH (05:41)
[2020-02-04] MEDS: INSULIN LISPRO 100 UNIT/ML 3 ML VIAL SUBCUT SCH ×2 (08:21→12:10)
[2020-02-04] MEDS: RIVAROXABAN 10 MG TABLET PO SCH (10:06)
[2020-02-04] MEDS: AMLODIPINE BESYLATE 10 MG TABLET PO SCH (10:06)
[2020-02-04] MEDS: ASCORBIC ACID 500 MG TABLET PO SCH (10:06)
[2020-02-04] MEDS: CARVEDILOL 6.25 MG TABLET PO SCH (10:06)
[2020-02-04] MEDS: DILTIAZEM HCL 120 MG CAP.SR.24H PO SCH (10:06)
[2020-02-04] MEDS: VITAMIN E (DL, ACETATE) 400 UNIT CAPSULE PO SCH (10:06)
[2020-02-04] MEDS: ALLOPURINOL 100 MG TABLET PO SCH (10:06)
--- NOTE | 2020-02-04 15:24 | PDOC DISCHARGE SUMMARY ---
Impression - Admit/DC Date/PCP Admission Date/Primary Care Provider: 02/01/20 16:00 Caroline TINSLEY MD Discharge Date: 02/04/20 - Discharge Diagnosis (1) Acute cardioembolic stroke Is this a current diagnosis for this admission?: Yes (2) Chronic atrial fibrillation Is this a current diagnosis for this admission?: Yes (3) Diabetes mellitus type 2 in obese Is this a current diagnosis for this admission?: Yes (4) CKD (chronic kidney disease) stage 5, GFR less than 15 ml/min Is this a current diagnosis for this admission?: Yes (5) HTN (hypertension) Is this a current diagnosis for this admission?: Yes (6) HLD (hyperlipidemia) Is this a current diagnosis for this admission?: Yes (7) Chronic gouty arthritis Is this a current diagnosis for this admission?: Yes (8) Hypothyroidism Is this a current diagnosis for this admission?: Yes (9) BMI 40.0-44.9, adult Is this a current diagnosis for this admission?: Yes - Assessment Summary: Patient was admitted for acute stroke with left facial droop and slurred speech. She was on Xarelto therapy for chronic atrial fibrillation anticoagulation therapy at the time of her presentation but missed out for thrombolytic therapy due to symptom onset to presentation time interval. She was seen in consultation by the speech pathologist, PT, and OT staff. She will be discharge home with front wheel walker and continue rehabilitation. She will follow up in the office as instructed upon discharge. - Additional Information Resuscitation Status: Full Code Discharge Diet: Cardiac, Diabetic Discharge Activity: Slowly Increase Activity, Supervised Activity Referrals: Caroline TINSLEY MD [Primary Care Provider] - Follow up as needed DI MANCINI MD [ACTIVE STAFF] - 02/09/20 10:00 am Home Medications: Allopurinol [Zyloprim 100 mg Tablet] 100 mg PO DAILY 07/20/19 Ascorbic Acid [C-500] 500 mg PO DAILY 07/20/19 Calcitriol [Rocaltrol 0.25 mcg Capsule] 0.25 mcg PO CARSON@1000 07/20/19 Carvedilol [Coreg 6.25 mg Tablet] 6.25 mg PO Q12 07/20/19 Levothyroxine Sodium [Synthroid 0.088 mg Tablet] 0.088 mg PO Q6AM 07/20/19 Losartan Potassium [Cozaar 25 mg Tablet] 25 mg PO DAILY 07/20/19 Rosuvastatin Calcium [Crestor 5 mg Tablet] 5 mg PO QHS 07/20/19 Semaglutide [Ozempic] 1 mg SQ Q7D 07/20/19 Ubidecarenone/Vit E Acet [Co Q-10 100 mg Softgel] 1 cap PO DAILY 07/20/19 Apixaban [Eliquis 5 mg Tablet] 5 mg PO Q12 11/09/19 Alpha Lipoic Acid [Alpha Lipoic Acid 300 mg Capsule] 300 mg PO DAILY 02/02/20 Amlodipine Besylate [Norvasc 10 mg Tablet] 10 mg PO DAILY 02/02/20 Diltiazem HCl [Diltiazem 12Hr ER] 120 mg PO DAILY 02/02/20 Insulin Degludec [Tresiba Flextouch U-200] 100 units SQ QHS 02/02/20 Liraglutide [Victoza 2-Ethan] 1.2 ml SQ DAILY 02/02/20 Rivaroxaban [Xarelto] 20 mg PO DAILY 02/02/20 Vitamin E (Dl, Acetate) [Vitamin E 400 Unit Capsule] 400 unit PO DAILY 02/02/20 History of Present Illiness History of Present Illness: DOMINGA RIBERA is a 69 year old female patient known to my practice who presented to the ED earlier today with new onset slurred speech and difficulty with swallowing water/fluid since around 6 am. Patient reported that she woke up this morning and noticed that se was drooling from side of her mouth at attempt of drinking water. She went about her daily chores including visit to her her dresser today. Her sister notice worsening clarity of her speech and alerted EMS for patient to come to the ED for further evaluation. Patient reported associated left facial droop and difficulty with walking. At the time of her arrival in the ED, she was outside of the time limit for intra-arterial thrombolytic intervention. Also, she is currently on Xarelto for chronic atrial fibrillation management and her coagulation parameters were elevated. Patient reported compliance with her medications. Her initial imaging evaluation with CT scan head did not reveal any acute pathologic process. She was advised hospitalization for further evaluation and management. Her morbidities are as listed below. Hospital Course Hospital Course: Patient was admitted for acute stroke with left facial droop and slurred speech. She was on Xarelto therapy for chronic atrial fibrillation anticoagulation therapy at the time of her presentation but missed out for thrombolytic therapy due to symptom onset to presentation time interval. She was seen in consultation by the speech pathologist, PT, and OT staff. She will be discharge home with front wheel walker and continue rehabilitation. She will follow up in the office as instructed upon discharge. Physical Exam Vital Signs: Temp Pulse Resp BP Pulse Ox 98.1 F 67 20 127/73 H 100 02/04/20 07:28 02/04/20 14:00 02/04/20 11:00 02/04/20 11:00 02/04/20 11:00 Intake & Output 02/03/20 02/04/20 02/05/20 06:59 06:59 06:59 Intake Total 252 620 Balance 252 620 Weight 128.3 kg 127.3 kg General appearance: PRESENT: morbidly obese Head exam: PRESENT: atraumatic, normocephalic Eye exam: PRESENT: conjunctiva pink. ABSENT: pallor, scleral icterus Ear exam: PRESENT: normal external ear exam Mouth exam: PRESENT: moist, slight left facial droop with lose of nasolabial fold Teeth exam: PRESENT: edentulous - with dentures in use Respiratory exam: PRESENT: clear to auscultation bilateral Cardiovascular exam: PRESENT: RRR, +S1, +S2. ABSENT: diastolic murmur, rubs, systolic murmur GI/Abdominal exam: PRESENT: normal bowel sounds, soft. ABSENT: distended, guarding, mass, organomegaly, rebound, tenderness Extremities exam: ABSENT: pedal edema Neurological exam: PRESENT: alert, awake, oriented to person, oriented to place, oriented to time, oriented to situation, abnormal gait - ambulate with walker assistance, CN II-XII grossly intact. ABSENT: motor sensory deficit Psychiatric exam: PRESENT: appropriate affect, normal mood. ABSENT: homicidal ideation, suicidal ideation Skin exam: PRESENT: dry, warm Results Laboratory Results: WBC 7.9 10^3/uL (4.0-10.5) 02/02/20 06:36 RBC 3.38 10^6/uL (3.72-5.28) L 02/02/20 06:36 Hgb 10.1 g/dL (12.0-15.5) L 02/02/20 06:36 Hct 30.7 % (36.0-47.0) L 02/02/20 06:36 MCV 91 fl (80-97) 02/02/20 06:36 MCH 30.0 pg (27.0-33.4) 02/02/20 06:36 MCHC 33.0 g/dL (32.0-36.0) 02/02/20 06:36 RDW 16.4 % (11.5-14.0) H 02/02/20 06:36 Plt Count 206 10^3/uL (150-450) 02/02/20 06:36 Lymph % (Auto) 27.4 % (13-45) 02/02/20 06:36 [place] % (Auto) 9.9 % (3-13) 02/02/20 06:36 Eos % (Auto) 2.6 % (0-6) 02/02/20 06:36 Baso % (Auto) 1.0 % (0-2) 02/02/20 06:36 Absolute Neuts (auto) 4.7 10^3/uL (1.7-8.2) 02/02/20 06:36 Absolute Lymphs (auto) 2.2 10^3/uL (0.5-4.7) 02/02/20 06:36 Absolute Monos (auto) 0.8 10^3/uL (0.1-1.4) 02/02/20 06:36 Absolute Eos (auto) 0.2 10^3/uL (0.0-0.6) 02/02/20 06:36 Absolute Basos (auto) 0.1 10^3/uL (0.0-0.2) 02/02/20 06:36 Seg Neutrophils % 59.1 % (42-78) 02/02/20 06:36 PT 25.2 SEC (11.4-15.4) H 02/01/20 14:05 INR 2.25 02/01/20 14:05 APTT 41.7 SEC (23.5-35.8) H 02/01/20 14:05 Carbonic Acid 1.27 mmol/L (1.05-1.35) 02/02/20 05:18 HCO3/H2CO3 Ratio 18:1 02/02/20 05:18 ABG pH 7.37 (7.35-7.45) 02/02/20 05:18 ABG pCO2 42.3 mmHg (35-45) 02/02/20 05:18 ABG pO2 84.0 mmHg (80-100) 02/02/20 05:18 ABG HCO3 23.9 mmol/L (20-24) 02/02/20 05:18 ABG Total CO2 25.2 mmol/L (21-25) H 02/02/20 05:18 ABG O2 Saturation 96.0 % (94-98) 02/02/20 05:18 ABG Base Excess -1.4 mmol/L 02/02/20 05:18 FiO2 21% 02/02/20 05:18 Sodium 140.4 mmol/L (137-145) 02/02/20 06:36 Potassium 3.6 mmol/L (3.6-5.0) 02/02/20 06:36 Chloride 110 mmol/L (98-107) H 02/02/20 06:36 Carbon Dioxide 24 mmol/L (22-30) 02/02/20 06:36 Anion Gap 6 (5-19) 02/02/20 06:36 BUN 48 mg/dL (7-20) H 02/02/20 06:36 Creatinine 4.31 mg/dL (0.52-1.25) H 02/02/20 06:36 Est GFR ( Amer) 12 (>60) L 02/02/20 06:36 Est GFR (MDRD) Non-Af 10 (>60) L 02/02/20 06:36 Glucose 125 mg/dL (75-110) H 02/02/20 06:36 POC Glucose 124 mg/dL (70-110) H 02/04/20 11:19 Hemoglobin A1c % 6.1 % (4.7-6.0) H 02/02/20 06:36 Calcium 8.9 mg/dL (8.4-10.2) 02/02/20 06:36 Total Bilirubin 0.3 mg/dL (0.2-1.3) 02/02/20 06:36 Direct Bilirubin 0.0 mg/dL (0.0-0.4) 02/02/20 06:36 Neonat Total Bilirubin Not Reportable 02/02/20 06:36 Neonat Direct Bilirubin Not Reportable 02/02/20 06:36 Neonat Indirect Bili Not Reportable 02/02/20 06:36 AST 17 U/L (14-36) 02/02/20 06:36 ALT 8 U/L (<35) 02/02/20 06:36 Alkaline Phosphatase 84 U/L (38-126) 02/02/20 06:36 Creatine Kinase 101 U/L (30-135) 02/02/20 06:36 Creatine Kinase 102 U/L (30-135) 02/02/20 06:36 CK-MB (CK-2) 1.03 ng/mL (<4.55) 02/02/20 13:15 Troponin I 0.041 ng/mL 02/02/20 13:15 Total Protein 6.5 g/dL (6.3-8.2) 02/02/20 06:36 Albumin 3.2 g/dL (3.5-5.0) L 02/02/20 06:36 Triglycerides 135 mg/dL (<150) 02/02/20 06:36 Cholesterol 135.85 mg/dL (0-200) 02/02/20 06:36 LDL Cholesterol Direct 66 mg/dL (<100) 02/02/20 06:36 VLDL Cholesterol 27.0 mg/dL (10-31) 02/02/20 06:36 HDL Cholesterol 38 mg/dL (>40) L 02/02/20 06:36 02/01/20 02/02/20 02/02/20 14:05 01:07 06:36 CK-MB (CK-2) 1.54 1.22 1.33 Troponin I 0.045 0.044 0.041 02/02/20 13:15 CK-MB (CK-2) 1.03 Troponin I 0.041 Impressions: Head MRI 02/01/20 00:00 IMPRESSION: 1. Cannot exclude an acute/subacute infarction in the thalamus on the right. Old left lacunar infarction. Chronic microvascular ischemia. EVIDENCE OF ACUTE STROKE: NO. Chest X-Ray 02/01/20 13:39 IMPRESSION: NO ACUTE RADIOGRAPHIC FINDING IN THE CHEST. Head CT 02/01/20 13:39 IMPRESSION: CHRONIC CHANGES OF ATROPHY AND MICROVASCULAR ISCHEMIA. NO ACUTE PROCESS. EVIDENCE OF ACUTE STROKE: NO. Neck MRA 02/01/20 14:24 IMPRESSION: NO SIGNIFICANT STENOSIS. Brain MRI with MRA 02/01/20 14:25 IMPRESSION: NORMAL MRA OF THE [place]. Plan Health Concerns: Compliance with medication and rehabilitation. Plan of Treatment: Institution of [facility] for VN, PT, and speech pathologist services. Goals: Improve her functional level and decrease aspiration and readmission risks. Time Spent: Greater than 30 Minutes Stroke Is this a Stroke Patient?: Yes Stroke Pt being discharged on Anti-thrombolytic therapy?: Yes Stroke Pt being discharged on Anti-coagulation therapy?: Yes Stroke Pt being discharged on Statins?: Yes Acute Heart Failure - Is this a Heart Failure Patient?: No
[2020-02-04 15:50] VITALS: BP 130/86
[2020-02-06] MEDS ORDERED: CALCITRIOL 0.25 MCG CAPSULE PO SCH (10:00)
== END 2020-02-04 16:45 | disposition home health service (06) | DRG 65 ==
LOC: ER 13:34 → EH 16:00 → 3N 17:13
PROVIDERS: ADMIT Internal Medicine Geriatric Medicine; ATTEND Internal Medicine Geriatric Medicine
DX: I63.89 Other cerebral infarction (principal); Z68.41 Body mass index [BMI] 40.0-44.9, adult; I12.0 Hypertensive chronic kidney disease with stage 5 chronic kidney disease or end stage renal disease; N18.5 Chronic kidney disease, stage 5; I48.20 Chronic atrial fibrillation, unspecified; R29.810 Facial weakness; R47.81 Slurred speech; E66.01 Morbid (severe) obesity due to excess calories; Z79.01 Long term (current) use of anticoagulants; E78.5 Hyperlipidemia, unspecified; Z86.73 Personal history of transient ischemic attack (TIA), and cerebral infarction without residual deficits; E11.22 Type 2 diabetes mellitus with diabetic chronic kidney disease; E03.9 Hypothyroidism, unspecified; M1A.9XX0 Chronic gout, unspecified, without tophus (tophi); G47.33 Obstructive sleep apnea (adult) (pediatric); Z79.4 Long term (current) use of insulin; Z79.899 Other long term (current) drug therapy; Z79.890 Hormone replacement therapy; Z91.040 Latex allergy status
CPT/HCPCS: 36415; 36600; 70450; 70544; 70547; 70551; 71045; 80053; 80061; 82550; 82553; 82803; 82962; 83036; 84484; 85025; 85610; 85730; 93005; 93010; 94660; 99285; J3490

== ENCOUNTER → 2020-03-02 | Outpatient (CLI) | payer MEDICARE, BC ==
[2020-03-02 09:56] LABS: ALBUMIN 3.8 g/dL (3.5-5.0); ANION GAP 10 (5-19); BLOOD UREA NITROGEN 53 mg/dL (7-20); CALCIUM 9.2 mg/dL (8.4-10.2); CARBON DIOXIDE 23 mmol/L (22-30); CHLORIDE 106 mmol/L (98-107); GLUCOSE 118 mg/dL (75-110); POTASSIUM 4.1 mmol/L (3.6-5.0)
== END ==
LOC: OD 08:34
PROVIDERS: ATTEND Physician Assistant Medical
DX: N18.4 Chronic kidney disease, stage 4 (severe) (principal)
CPT/HCPCS: 36415; 80069

== ENCOUNTER → 2020-04-07 | Outpatient (CLI) | payer MEDICARE, BC ==
[2020-04-07 14:39] LABS: MEAN CORPUSCULAR HEMOGLOBIN 30.3 pg (27.0-33.4); MEAN CORPUSCULAR HGB CONC 33.3 g/dL (32.0-36.0); MEAN CORPUSCULAR VOLUME 91 fl (80-97); PLATELET COUNT 232 10^3/uL (150-450); RED BLOOD COUNT 3.63 10^6/uL (3.72-5.28); RED CELL DISTRIBUTION WIDTH 16.9 % (11.5-14.0); WHITE BLOOD COUNT 6.1 10^3/uL (4.0-10.5)
[2020-04-07 14:56] LABS: APPEARANCE,URINE SLIGHTLY-CLOUDY; BILIRUBIN,URINE NEGATIVE (NEGATIVE); COLOR,URINE YELLOW; GLUCOSE, URINE 50 mg/dL (NEGATIVE); KETONES,URINE NEGATIVE (NEGATIVE); LEUKOCYTE ESTERASE,URINE NEGATIVE (NEGATIVE); NITRITE,URINE NEGATIVE (NEGATIVE); PROTEIN,URINE >=500 mg/dL (NEGATIVE); URINE SPECIFIC GRAVITY 1.012; UROBILINOGEN,URINE NEGATIVE mg/dL (<2.0)
[2020-04-07 15:08] LABS: ALBUMIN 3.8 g/dL (3.5-5.0); ANION GAP 7 (5-19); BLOOD UREA NITROGEN 58 mg/dL (7-20); CALCIUM 9.3 mg/dL (8.4-10.2); CARBON DIOXIDE 26 mmol/L (22-30); CHLORIDE 108 mmol/L (98-107); GLUCOSE 101 mg/dL (75-110); PHOSPHORUS 4.4 mg/dL (2.5-4.5); POTASSIUM 3.6 mmol/L (3.6-5.0)
[2020-04-07 15:18] LABS: URINE CREATININE 130.1 mg/dL (15-278)
[2020-04-07 15:32] LABS: UR PRO/CREAT RATIO RESULT 2.4 mg/mg (0.0-0.2)
== END ==
LOC: OD 13:48
PROVIDERS: ATTEND Internal Medicine Nephrology
DX: N18.4 Chronic kidney disease, stage 4 (severe) (principal)
CPT/HCPCS: 36415; 80069; 81001; 82570; 83970; 84156; 85027

== ENCOUNTER 2020-05-09 16:41 | Inpatient (IN) | payer MEDICARE, BC ==
--- NOTE | 2020-05-09 17:17 | ER Document Report ---
ED Medical Screen (RME) - General Stated Complaint: RIGHT LEG WEAKNESS Time Seen by Provider: 05/09/20 16:53 Primary Care Provider: Caroline TINSLEY MD [Primary Care Provider] - Follow up as needed Notes: Patient is 69-year-old female who presents emergency department with a chief complaint of right leg pain and "jumpiness." Patient states that she fell this past weekend she states on Friday, but EMS reports on Friday. Patient states that she had weakness to her right leg on Friday and then fell. Reports hitting her head. States that the pain in her leg is better. Patient walks with a walker. Exam: Awake and alert oriented. I have greeted and performed a rapid initial assessment of this patient. A comprehensive ED assessment and evaluation of the patient, analysis of test results and completion of medical decision making process will be conducted by an additional ED providers. TRAVEL OUTSIDE OF THE [place] IN LAST 30 DAYS: No - Related Data Allergies/Adverse Reactions: latex Allergy (Verified 05/09/20 17:09) Past Medical History - Past Medical History Cardiac Medical History: Reports: Hx Hypertension Denies: Hx Coronary Artery Disease, Hx Heart Attack Pulmonary Medical History: Denies: Hx Asthma, Hx Bronchitis, Hx COPD, Hx Pneumonia Neurological Medical History: Reports: Hx Cerebrovascular Accident - 2009. Denies: Hx Seizures Endocrine Medical History: Reports: Hx Diabetes Mellitus Type 2 Renal/ Medical History: Reports: Hx End Stage Renal Disease. Denies: Hx Peritoneal Dialysis Musculoskeltal Medical History: Denies Hx Arthritis Psychiatric Medical History: Denies: Hx Depression - Immunizations Hx Diphtheria, Pertussis, Tetanus Vaccination: No Physical Exam - Vital signs Vitals: Temp Pulse Resp BP Pulse Ox 97.9 F 74 18 121/62 99 05/09/20 17:05 05/09/20 17:05 05/09/20 17:05 05/09/20 17:05 05/09/20 17:05 Course - Vital Signs Vital signs: Temp Pulse Resp BP Pulse Ox 97.9 F 74 18 121/62 99 05/09/20 17:05 05/09/20 17:05 05/09/20 17:05 05/09/20 17:05 05/09/20 17:05 Doctor's Discharge - Discharge Referrals: Caroline TINSLEY MD [Primary Care Provider] - Follow up as needed
[2020-05-09 18:08] LABS: ABSOLUTE BASOPHILS # (AUTO) 0.1 10^3/uL (0.0-0.2); ABSOLUTE EOSINOPHILS # (AUTO) 0.2 10^3/uL (0.0-0.6); ABSOLUTE LYMPHOCYTES (AUTO) 2.1 10^3/uL (0.5-4.7); ABSOLUTE MONOCYTES (AUTO) 0.5 10^3/uL (0.1-1.4); ABSOLUTE NEUT (AUTO) 5.1 10^3/uL (1.7-8.2); BASOPHILS % (AUTO) 1.3 % (0-2); EOSINOPHILS % (AUTO) 2.4 % (0-6); LYMPHOCYTES % (AUTO) 26.4 % (13-45); MEAN CORPUSCULAR HEMOGLOBIN 30.9 pg (27.0-33.4); MEAN CORPUSCULAR HGB CONC 33.2 g/dL (32.0-36.0); MEAN CORPUSCULAR VOLUME 93 fl (80-97); MONOCYTES % (AUTO) 6.6 % (3-13); PLATELET COUNT 250 10^3/uL (150-450); RED BLOOD COUNT 2.25 10^6/uL (3.72-5.28); RED CELL DISTRIBUTION WIDTH 16.2 % (11.5-14.0); SEGMENTED NEUTROPHILS % (AUTO) 63.3 % (42-78); TOTAL CELLS COUNTED % (AUTO) 100 %; WHITE BLOOD COUNT 8.1 10^3/uL (4.0-10.5)
--- NOTE | 2020-05-09 18:14 | RADIOLOGY REPORT (SQ) ---
EXAM DESCRIPTION: CT HEAD WITHOUT IMAGES COMPLETED DATE/TIME: 05/09/2020 6:00 pm REASON FOR STUDY: fall; right leg numbness COMPARISON: MR 02/01/2020 CT 02/01/2020 TECHNIQUE: Axial images acquired through the brain without intravenous contrast. Images reviewed wi th bone, brain and subdural windows. Additional sagittal and coronal reconstructions were generated. Images stored on PACS. All CT scanners at this facility use dose modulation, iterative reconstruction, and/or weight based d osing when appropriate to reduce radiation dose to as low as reasonably achievable (ALARA). [facility]: Dose Right [facility]: CareDose [facility]: Dose Right [facility]: Teradose 4D [facility]: Smart [employer] RADIATION DOSE: CT Rad equipment meets quality standard of care and radiation dose reduction techniq ues were employed. CTDIvol: 53.2 mGy. DLP: 991 mGy-cm. mGy. LIMITATIONS: None. FINDINGS: VENTRICLES: Normal size and contour. CEREBRUM: No masses. No hemorrhage. No midline shift. Left lacunar infarction. No evidence for ac [place] infarction. Areas of low density in the white matter most likely chronic small vessel ischemic ch anges. CEREBELLUM: No masses. No hemorrhage. No alteration of density. No evidence for acute infarction. EXTRAAXIAL SPACES: No fluid collections. No masses. ORBITS AND GLOBE: No intra- or extraconal masses. Normal contour of globe without masses. CALVARIUM: No fracture. PARANASAL SINUSES: No fluid or mucosal thickening. SOFT TISSUES: No mass or hematoma. OTHER: No other significant finding. IMPRESSION: Chronic microvascular ischemia. No acute intracranial imaging findings. EVIDENCE OF ACUTE STROKE: NO. COMMENT: Quality ID # [id number]: Final reports with documentation of one or more dose reduction techniques (e.g., Automated exposure control, adjustment of the mA and/or kV according to patient size, use of iterative reconstruction technique) TECHNICAL DOCUMENTATION: JOB ID: [id number] 2010 [employer]- All Rights Reserved Reading location - IP/workstation name: [email or web address]
--- NOTE | 2020-05-09 18:15 | RADIOLOGY REPORT (SQ) ---
EXAM DESCRIPTION: CHEST SINGLE VIEW IMAGES COMPLETED DATE/TIME: 05/09/2020 5:59 pm REASON FOR STUDY: Weakness COMPARISON: 02/01/2020 EXAM PARAMETERS: NUMBER OF VIEWS: One view. TECHNIQUE: Single frontal radiographic view of the chest acquired. RADIATION DOSE: NA LIMITATIONS: None. FINDINGS: LUNGS AND PLEURA: No opacities, masses or pneumothorax. No pleural effusion. MEDIASTINUM AND HILAR STRUCTURES: No masses. Contour normal. HEART AND VASCULAR STRUCTURES: Heart normal in size. Normal vasculature. BONES: No acute findings. HARDWARE: None in the chest. OTHER: No other significant finding. IMPRESSION: NO ACUTE RADIOGRAPHIC FINDING IN THE CHEST. TECHNICAL DOCUMENTATION: JOB ID: [id number] 2010 [employer]- All Rights Reserved Reading location - IP/workstation name: [email or web address]
[2020-05-09 18:25] LABS: ALBUMIN 3.7 g/dL (3.5-5.0); ALKALINE PHOSPHATASE 81 U/L (38-126); ANION GAP 11 (5-19); ASPARTATE AMINO TRANSFERASE 17 U/L (14-36); BILIRUBIN,DIRECT 0.3 mg/dL (0.0-0.4); BILIRUBIN,TOTAL 0.3 mg/dL (0.2-1.3); BLOOD UREA NITROGEN 45 mg/dL (7-20); CARBON DIOXIDE 23 mmol/L (22-30); CHLORIDE 107 mmol/L (98-107); GLUCOSE 135 mg/dL (75-110); POTASSIUM 3.5 mmol/L (3.6-5.0); TOTAL PROTEIN 6.8 g/dL (6.3-8.2)
[2020-05-09] MEDS ORDERED: NORMAL SALINE 250 ML IV PRN ×2 (18:28)
--- NOTE | 2020-05-09 19:44 | RADIOLOGY REPORT (SQ) ---
EXAM DESCRIPTION: U/S NON OB PEL TV W/DOPPLER IMAGES COMPLETED DATE/TIME: 05/09/2020 7:34 pm REASON FOR STUDY: vaginal bleeding 12 years post menopause COMPARISON: None. TECHNIQUE: Dynamic and static grayscale images acquired of the pelvis via transvaginal approach and recorded on PACS. Additional selected color Doppler and spectral images recorded. LIMITATIONS: Body habitus, patient motion FINDINGS: UTERUS: Contour normal. No mass. ENDOMETRIAL STRIPE: No focal or generalized thickening. No masses. CERVIX: 1.6 cm. No nabothian cysts. RIGHT OVARY AND DOPPLER: Normal size. No worrisome masses. Normal arterial vascular flow without evid ence for torsion. LEFT OVARY AND DOPPLER: Ovary not seen. FREE FLUID: None noted. OTHER: No other significant finding. MEASUREMENTS: UTERUS: 4.2 x 2.5 x 2.8 cm. ENDOMETRIAL STRIPE: 3 mm RIGHT OVARY: 2.9 x 1.5 x 2.3 cm. LEFT OVARY: Not seen. IMPRESSION: No significant or acute finding in the pelvis. The left ovary was not seen. The endome trium appears normal, but the study is somewhat limited. TECHNICAL DOCUMENTATION: JOB ID: [id number] 2010 [employer]- All Rights Reserved Rev-01/09 Reading location - IP/workstation name: [email or web address]
--- NOTE | 2020-05-09 20:56 | ER Document Report ---
ED General - General Chief Complaint: Fall Injury Stated Complaint: RIGHT LEG WEAKNESS Time Seen by Provider: 05/09/20 16:53 Primary Care Provider: Caroline TINSLEY MD [Primary Care Provider] - Follow up as needed TRAVEL OUTSIDE OF THE [place] IN LAST 30 DAYS: No - HPI Notes: Patient is a 69-year-old female, a difficult historian, who presents to the ER for evaluation. Evidently she has had vaginal bleeding, which she describes as her "period" for 3-1/2 to 4 weeks. She states she was seen by Dr. Escudero last week. She was started on medication, but states she does not know what it was. She states she started taking it. She started feeling "funny" on Friday. She states she was evaluated by EMS. She tells me they told her that her symptoms were a side effect of the medication. They told her she could either follow-up with her primary care provider and ASSISTANT on Friday, or she could "go to the ER where they won't do anything." She elected to follow-up with her primary care provider. She states that earlier today she bent over and she lost her balance, got dizzy and fell, she states she was bending over because she was continuing to have significant vaginal bleeding. She states that it has slowed since starting her medication, but has not yet stopped. At that point she fell over. She did hit her head. She did not lose consciousness. She denies any neck or back pain. She states that her right leg "will not stop jumping." She denies that it hurts in any way. Otherwise she has been taking her medications as prescribed. - Related Data Allergies/Adverse Reactions: latex Allergy (Verified 05/09/20 17:09) Home Medications: synthroid. diltizem. clopidogrel. calcitrol. carvedilol. docusate sodium. insulin. [place] Past Medical History - General Information source: Patient - Social History Smoking Status: Current Every Day Smoker Chew tobacco use (# tins/day): No Frequency of alcohol use: None Drug Abuse: None Family History: Reviewed & Not Pertinent - Past Medical History Cardiac Medical History: Reports: Hx Atrial Fibrillation, Hx Hypertension Denies: Hx Coronary Artery Disease, Hx Heart Attack Pulmonary Medical History: Denies: Hx Asthma, Hx Bronchitis, Hx COPD, Hx Pneumonia Neurological Medical History: Reports: Hx Cerebrovascular Accident - 2009. Edgardo es: Hx Seizures Endocrine Medical History: Reports: Hx Diabetes Mellitus Type 2 Renal/ Medical History: Reports: Hx End Stage Renal Disease. Denies: Hx Peritoneal Dialysis Musculoskeletal Medical History: Denies Hx Arthritis Psychiatric Medical History: Denies: Hx Depression - Immunizations Hx Diphtheria, Pertussis, Tetanus Vaccination: No Hx Pneumococcal Vaccination: 08/25/18 Review of Systems - Review of Systems Constitutional: See HPI EENT: No symptoms reported Cardiovascular: No symptoms reported Respiratory: No symptoms reported Gastrointestinal: No symptoms reported Genitourinary: No symptoms reported Female Genitourinary: See HPI Musculoskeletal: No symptoms reported Skin: No symptoms reported Hematologic/Lymphatic: See HPI Neurological/Psychological: No symptoms reported Physical Exam - Vital signs Vitals: Temp Pulse Resp BP Pulse Ox 97.9 F 74 18 121/62 99 05/09/20 17:05 05/09/20 17:05 05/09/20 17:05 05/09/20 17:05 05/09/20 17:05 - Notes Notes: Vital signs reviewed, please refer to chart. Head is normocephalic, atraumatic. Pupils equal round, reactive to light. Conjunctive are pale. Neck is supple without meningismus. Heart is regular rate and rhythm. Lungs are clear to auscultation bilaterally. Abdomen is soft, nontender, normoactive bowel sounds throughout. Extremities without cyanosis, clubbing. Posterior calves are nontender. Peripheral pulses are equal. Skin is warm and dry. Patient is awake, alert, cooperative with examiner. She exhibits mild dysarthria. She moves all 4 extremity spontaneously. Course - Re-evaluation Re-evalutation: 05/09/20 20:57 Patient presents to the emergency department for evaluation. She was initially seen through triage. She had laboratory investigations and imaging as ordered. Laboratory investigations revealed a hemoglobin of 7, significant drop since 1 month ago. She is currently on Xarelto, has multiple comorbidities. Tr ansfusion of 2 units of packed cells was ordered. Otherwise creatinine is elevated but the patient is not uremic. No significant electrolyte abnormalities at this time. I will speak with her primary care provider regarding admission. 05/09/20 21:04 Dr. Mcconnell will accept the patient for admission to [facility]. I will consult ASSISTANT regarding her continued vaginal bleeding. 05/09/20 21:07 Dr. Velez notified of the consult. There is no emergent need for that at this time. Patient will be seen tomorrow by ASSISTANT. - Vital Signs Vital signs: Temp Pulse Resp BP Pulse Ox 97.9 F 74 15 121/62 100 05/09/20 17:05 05/09/20 17:05 05/09/20 19:00 05/09/20 17:05 05/09/20 19:00 - Laboratory Result Diagrams: 05/09/20 17:46 05/09/20 17:46 Laboratory results interpreted by me: 05/09/20 05/09/20 05/09/20 17:46 17:46 19:45 RBC 2.25 L Hgb 7.0 L Hct 21.0 L RDW 16.2 H Potassium 3.5 L BUN 45 H Creatinine 5.37 H Est GFR ( Amer) 10 L Est GFR (MDRD) Non-Af 8 L Glucose 135 H Crossmatch See Detail - Diagnostic Test Radiology reviewed: Reports reviewed Radiology results interpreted by me: 05/09/20 20:[address] 05/09/20 17:14 IMPRESSION: Chronic microvascular ischemia. No acute intracranial imaging fin dings. EVIDENCE OF ACUTE STROKE: NO. Chest X-Ray 05/09/20 17:17 IMPRESSION: NO ACUTE RADIOGRAPHIC FINDING IN THE CHEST. Pelvis Ultrasound 05/09/20 18:39 IMPRESSION: No significant or acute finding in the pelvis. The left ovary was not seen. The endometrium appears normal, but the study is somewhat limited. Discharge - Discharge Clinical Impression: Acute blood loss anemia, Abnormal uterine and vaginal bleeding, unspecified Condition: Stable Disposition: ADMITTED INPATIENT Admitting Provider: [facility] Unit Admitted: [facility] Referrals: Caroline TINSLEY MD [Primary Care Provider] - Follow up as needed
[2020-05-10] MEDS ORDERED: GLUCAGON,HUMAN RECOMB 1 MG INJ IM PRN (05:00)
[2020-05-10] MEDS ORDERED: DEXTROSE 40% GEL 15 GM TUBE PO PRN (05:00)
[2020-05-10] MEDS ORDERED: DEXTROSE 50%-WATER SYRINGE 12.5 GM/25 ML DOSE IV PRN (05:00)
[2020-05-10] MEDS ORDERED: DEXTROSE 40% GEL 15 GM TUBE X 2 PO PRN (05:00)
[2020-05-10] MEDS ORDERED: DEXTROSE 50%-WATER SYRINGE 25 GM/50 ML DOSE IV PRN (05:00)
[2020-05-10 06:05] LABS: HEMATOCRIT 25.1 % (36.0-47.0); HEMOGLOBIN 8.5 g/dL (12.0-15.5); MEAN CORPUSCULAR HEMOGLOBIN 30.6 pg (27.0-33.4); MEAN CORPUSCULAR HGB CONC 33.8 g/dL (32.0-36.0); MEAN CORPUSCULAR VOLUME 91 fl (80-97); PLATELET COUNT 204 10^3/uL (150-450); RED BLOOD COUNT 2.77 10^6/uL (3.72-5.28); RED CELL DISTRIBUTION WIDTH 14.7 % (11.5-14.0); WHITE BLOOD COUNT 11.5 10^3/uL (4.0-10.5)
[2020-05-10] MEDS: LEVOTHYROXINE SODIUM 0.088 MG TABLET PO SCH (06:41)
--- NOTE | 2020-05-10 07:40 | PDOC CONSULTATION ---
Consultation Consult Date: 05/10/20 Provider Consulted: ROSS MARTIN Consult reason:: PMB History of Present Illness Admission Date/PCP: 05/09/20 21:21 Caroline TINSLEY MD History of Present Illness: DOMINGA RIBERA is a 69 year old female Past Medical History LMP: postmenopausal Menses: no Gynecological Infection: No Obstetrical History: none - 3 Cardiac Medical History: Reports: Atrial Fibrillation, Hypertension Denies: Coronary Artery Disease, Myocardial Infarction Pulmonary Medical History: Denies: Asthma, Bronchitis, Chronic Obstructive Pulmonary Disease (COPD), Pneumonia Neurological Medical History: Denies: Seizures Endocrine Medical History: Reports: Diabetes Mellitus Type 2 Renal/ Medical History: Reports: End Stage Renal Disease Musculoskeltal Medical History: Denies: Arthritis Psychiatric Medical History: Denies: Depression Social History Information Source: Patient Smoking Status: Current Every Day Smoker Cigarettes Packs Per Day: 0.2 Electronic Cigarette use?: No Frequency of Alcohol Use: None Hx Recreational Drug Use: No Hx Prescription Drug Abuse: No Family History Family History: Reviewed & Not Pertinent Parental Family History Reviewed: Yes Children Family History Reviewed: Yes Sibling(s) Family History Reviewed.: Yes Medication/Allergy Home Medications: Allopurinol [Zyloprim 100 mg Tablet] 100 mg PO DAILY 07/20/19 Ascorbic Acid [C-500] 500 mg PO DAILY 07/20/19 Calcitriol [Rocaltrol 0.25 mcg Capsule] 0.25 mcg PO CARSON@1000 07/20/19 Carvedilol [Coreg 6.25 mg Tablet] 6.25 mg PO Q12 07/20/19 Levothyroxine Sodium [Synthroid 0.088 mg Tablet] 0.088 mg PO Q6AM 07/20/19 Losartan Potassium [Cozaar 25 mg Tablet] 25 mg PO DAILY 07/20/19 Rosuvastatin Calcium [Crestor 5 mg Tablet] 5 mg PO QHS 07/20/19 Semaglutide [Ozempic] 1 mg SQ Q7D 07/20/19 Ubidecarenone/Vit E Acet [Co Q-10 100 mg Softgel] 1 cap PO DAILY 07/20/19 Alpha Lipoic Acid [Alpha Lipoic Acid 300 mg Capsule] 300 mg PO DAILY 02/02/20 Amlodipine Besylate [Norvasc 10 mg Tablet] 10 mg PO DAILY 02/02/20 Diltiazem HCl [Diltiazem 12Hr ER] 120 mg PO DAILY 02/02/20 Insulin Degludec [Tresiba Flextouch U-200] 100 units SQ QHS 02/02/20 Liraglutide [Victoza 2-Ethan] 1.2 ml SQ DAILY 02/02/20 Rivaroxaban [Xarelto] 20 mg PO DAILY 02/02/20 Vitamin E (Dl, Acetate) [Vitamin E 400 Unit Capsule] 400 unit PO DAILY 02/02/20 Allergies/Adverse Reactions: latex Allergy (Verified 05/09/20 17:09) Physical Exam - Physical Exam Vital Signs: Temp Pulse Resp BP Pulse Ox 97.1 F 82 16 156/71 H 100 05/10/20 04:04 05/10/20 04:04 05/10/20 04:04 05/10/20 04:04 05/10/20 04:04 Intake & Output 05/09/20 05/10/20 05/11/20 06:59 06:59 06:59 Intake Total 750 Balance 750 Weight 122.7 kg - Gynecological Exam Labia: normal Urethra: normal Introitus: other - parous menopausal Perineum: normal Vagina: other - menopausal unable to visualize cervix in the office Result Laboratory Results: 05/10/20 04:33 05/09/20 17:46 05/09/20 05/09/20 05/09/20 17:46 17:46 19:45 WBC 8.1 RBC 2.25 L Hgb 7.0 L Hct 21.0 L MCV 93 MCH 30.9 MCHC 33.2 RDW 16.2 H Plt Count 250 Seg Neutrophils % 63.3 Sodium 140.9 Potassium 3.5 L Chloride 107 Carbon Dioxide 23 Anion Gap 11 BUN 45 H Creatinine 5.37 H Est GFR ( Amer) 10 L Glucose 135 H Calcium 9.0 Total Bilirubin 0.3 AST 17 Alkaline Phosphatase 81 Total Protein 6.8 Albumin 3.7 Blood Type AB POSITIVE Antibody Screen NEGATIVE 05/10/20 04:33 WBC 11.5 H RBC 2.77 L Hgb 8.5 L Hct 25.1 L MCV 91 MCH 30.6 MCHC 33.8 RDW 14.7 H Plt Count 204 Seg Neutrophils % Sodium Potassium Chloride Carbon Dioxide Anion Gap BUN Creatinine Est GFR ( Amer) Glucose Calcium Total Bilirubin AST Alkaline Phosphatase Total Protein Albumin Blood Type Antibody Screen Impressions: Head CT 05/09/20 17:14 IMPRESSION: Chronic microvascular ischemia. No acute intracranial imaging findings. EVIDENCE OF ACUTE STROKE: NO. Chest X-Ray 05/09/20 17:17 IMPRESSION: NO ACUTE RADIOGRAPHIC FINDING IN THE CHEST. Pelvis Ultrasound 05/09/20 18:39 IMPRESSION: No significant or acute finding in the pelvis. The left ovary was not seen. The endometrium appears normal, but the study is somewhat limited. Postmenopausal bleeding on anticoagulant. Sono in our office shows a thickend endometrium. Pt is unable to tolerate office exam and endometrial bx. Assessment & Plan - Diagnosis (1) Postmenopausal Is this a current diagnosis for this admission?: Yes - Time Time Spent: 30 to 50 Minutes Critical Time spent with patient: 15-24 minutes Medications reviewed and adjusted accordingly: Yes Anticipated Discharge Disposition: may need a d and c, needs a covid screen Anticipated Discharge Timeframe: within 48 hours - Plan Summary Plan Summary: Please do a covid screen. may need a d and c.
[2020-05-10] MEDS: INSULIN LISPRO 100 UNIT/ML 3 ML VIAL SUBCUT SCH ×4 (08:46→23:48)
[2020-05-10] MEDS ORDERED: LOSARTAN POTASSIUM 25 MG TABLET PO SCH (10:00)
[2020-05-10] MEDS ORDERED: DILTIAZEM HCL 120 MG CAP.SR.24H PO SCH (10:00)
[2020-05-10] MEDS ORDERED: AMLODIPINE BESYLATE 10 MG TABLET PO SCH (10:00)
[2020-05-10] MEDS: ALLOPURINOL 100 MG TABLET PO SCH (11:07)
[2020-05-10] MEDS: ASCORBIC ACID 500 MG TABLET PO SCH (11:08)
[2020-05-10] MEDS: CARVEDILOL 6.25 MG TABLET PO SCH ×2 (11:09→21:44)
[2020-05-10] MEDS: VITAMIN E (DL, ACETATE) 400 UNIT CAPSULE PO SCH (11:11)
[2020-05-10 13:49] LABS: ANION GAP 10 (5-19); BLOOD UREA NITROGEN 46 mg/dL (7-20); CALCIUM 9.1 mg/dL (8.4-10.2); CARBON DIOXIDE 22 mmol/L (22-30); CHLORIDE 110 mmol/L (98-107); GLUCOSE 106 mg/dL (75-110); POTASSIUM 3.4 mmol/L (3.6-5.0)
--- NOTE | 2020-05-10 21:10 | PDOC H&P ---
History of Present Illness Admission Date/PCP: 05/09/20 21:21 DI MANCINI MD History of Present Illness: DOMINGA RIBERA is a 69 year old female known to my practice who presented to the ED with reported of postural dizziness, recurrent falls and unsteadiness in her gait and balance. She has ongoing vaginal bleeding over last 1 month and under regional account director evaluation. She was recently started on Medroxyprogesterone by her regional account director, Dr. Escudero, with recommendation for dilatation and curettage due to her postmenopausal vaginal bleeding. e reported continue but some decrease bleeding. Her initial evaluation in the ED revealed severe anemia as a consequence of her prolonged bleeding. She denied any head injury from her fall, no loss of consciousness. She denied chest pain, palpitation, headache, neck pain, back pain, nausea, vomiting, or abdominal pain. no fever or chills. She is under the belief that her recent Medroxyprogesterone is responsible for her symptoms. She was advised hospitalization for further evaluation and management. Her morbidities are listed below. Past Medical History Cardiac Medical History: Reports: Atrial Fibrillation, Hypertension Denies: Coronary Artery Disease, Myocardial Infarction Pulmonary Medical History: Denies: Asthma, Bronchitis, Chronic Obstructive Pulmonary Disease (COPD), Pneumonia Neurological Medical History: Denies: Seizures Endocrine Medical History: Reports: Diabetes Mellitus Type 2 Renal/ Medical History: Reports: End Stage Renal Disease Musculoskeltal Medical History: Denies: Arthritis Psychiatric Medical History: Denies: Depression Hematology: Reports: Anemia Social History Smoking Status: Current Every Day Smoker Cigarettes Packs Per Day: 0.2 Electronic Cigarette use?: No Frequency of Alcohol Use: None Hx Recreational Drug Use: No Hx Prescription Drug Abuse: No Family History Family History: Reviewed & Not Pertinent Parental Family History Reviewed: Yes Children Family History Reviewed: Yes Sibling(s) Family History Reviewed.: Yes Medication/Allergy Home Medications: Allopurinol [Zyloprim 100 mg Tablet] 100 mg PO QAM 07/20/19 Ascorbic Acid [C-500] 500 mg PO DAILY 07/20/19 Calcitriol [Rocaltrol 0.25 mcg Capsule] 0.25 mcg PO QAM 07/20/19 Carvedilol [Coreg 6.25 mg Tablet] 6.25 mg PO QAM 07/20/19 Levothyroxine Sodium [Synthroid 0.088 mg Tablet] 0.088 mg PO Q6AM 07/20/19 Rosuvastatin Calcium [Crestor 5 mg Tablet] 5 mg PO QHS 07/20/19 Semaglutide [Ozempic] 1 mg SQ TH@1000 07/20/19 Ubidecarenone/Vit E Acet [Co Q-10 100 mg Softgel] 1 cap PO DAILY 07/20/19 Alpha Lipoic Acid [Alpha Lipoic Acid 300 mg Capsule] 300 mg PO DAILY 02/02/20 Diltiazem HCl [Diltiazem 12Hr ER] 120 mg PO DAILY 02/02/20 Insulin Degludec [Tresiba Flextouch U-200] 48 units SQ QHS 02/02/20 Vitamin E (Dl, Acetate) [Vitamin E 400 Unit Capsule] 400 unit PO DAILY 02/02/20 Clopidogrel Bisulfate [Plavix 75 mg Tablet] 75 mg PO QAM 05/10/20 Docusate Sodium [Colace 100 mg Capsule] 200 mg PO QAM 05/10/20 Allergies/Adverse Reactions: latex Allergy (Verified 05/09/20 17:09) Review of Systems Constitutional: PRESENT: fatigue, weakness. ABSENT: chills, fever(s), headache(s) Eyes: ABSENT: visual disturbances Ears: ABSENT: hearing changes Nose, Mouth, and Throat: ABSENT: headache(s) Cardiovascular: ABSENT: chest pain, dyspnea on exertion, edema, orthropnea, palpitations Respiratory: ABSENT: cough, hemoptysis Gastrointestinal: ABSENT: abdominal pain, constipation, diarrhea, hematemesis, hematochezia, nausea, vomiting Genitourinary: ABSENT: dysuria, hematuria Musculoskeletal: ABSENT: joint swelling Integumentary: ABSENT: rash, wounds Neurological: PRESENT: abnormal gait - ambulate with walker assistance. ABSENT: abnormal speech, confusion, dizziness, focal weakness, syncope Psychiatric: ABSENT: anxiety, depression, homidical ideation, suicidal ideation Endocrine: ABSENT: cold intolerance, heat intolerance, polydipsia, polyuria Hematologic/Lymphatic: PRESENT: easy bleeding - with postmenupausal vaginal bleeding. ABSENT: easy bruising, lymphadenopathy Allergic/Immunologic: ABSENT: seasonal rhinorrhea Physical Exam Vital Signs: Temp Pulse Resp BP Pulse Ox 98.3 F 86 18 147/70 H 99 05/10/20 07:43 05/10/20 07:43 05/10/20 07:43 05/10/20 07:43 05/10/20 07:43 Intake & Output 05/09/20 05/10/20 05/11/20 06:59 06:59 06:59 Intake Total 750 Balance 750 Weight 122.7 kg General appearance: PRESENT: no acute distress, morbidly obese Head exam: PRESENT: atraumatic, normocephalic Eye exam: PRESENT: conjunctiva pink, EOMI, PERRLA. ABSENT: scleral icterus Ear exam: PRESENT: normal external ear exam Mouth exam: PRESENT: moist, tongue midline Neck exam: PRESENT: full ROM. ABSENT: carotid bruit, JVD, lymphadenopathy, thyromegaly Respiratory exam: PRESENT: clear to auscultation hans Cardiovascular exam: PRESENT: RRR, +S1, +S2. ABSENT: diastolic murmur, rubs, systolic murmur Pulses: PRESENT: normal dorsalis pedis pul, +2 pedal pulses bilateral Vascular exam: PRESENT: pallor GI/Abdominal exam: PRESENT: normal bowel sounds, soft. ABSENT: distended, guarding, mass, organolmegaly, rebound, tenderness Rectal exam: PRESENT: deferred Extremities exam: ABSENT: pedal edema Musculoskeletal exam: PRESENT: deformity - related to multiple joints involvement with arthritis Neurological exam: PRESENT: alert, awake, oriented to person, oriented to place, oriented to time, oriented to situation, abnormal gait - ambulate with walker assistance, CN II-XII grossly intact. ABSENT: motor sensory deficit Psychiatric exam: PRESENT: appropriate affect, normal mood. ABSENT: homicidal ideation, suicidal ideation Skin exam: PRESENT: dry, intact, warm. ABSENT: cyanosis, rash Results Laboratory Results: 05/10/20 04:33 05/09/20 17:46 05/09/20 05/09/20 05/09/20 17:46 17:46 19:45 WBC 8.1 RBC 2.25 L Hgb 7.0 L Hct 21.0 L MCV 93 MCH 30.9 MCHC 33.2 RDW 16.2 H Plt Count 250 Seg Neutrophils % 63.3 Sodium 140.9 Potassium 3.5 L Chloride 107 Carbon Dioxide 23 Anion Gap 11 BUN 45 H Creatinine 5.37 H Est GFR ( Amer) 10 L Glucose 135 H Calcium 9.0 Total Bilirubin 0.3 AST 17 Alkaline Phosphatase 81 Total Protein 6.8 Albumin 3.7 Blood Type AB POSITIVE Antibody Screen NEGATIVE 05/10/20 04:33 WBC 11.5 H RBC 2.77 L Hgb 8.5 L Hct 25.1 L MCV 91 MCH 30.6 MCHC 33.8 RDW 14.7 H Plt Count 204 Seg Neutrophils % Sodium Potassium Chloride Carbon Dioxide Anion Gap BUN Creatinine Est GFR ( Amer) Glucose Calcium Total Bilirubin AST Alkaline Phosphatase Total Protein Albumin Blood Type Antibody Screen Impressions: Head CT 05/09/20 17:14 IMPRESSION: Chronic microvascular ischemia. No acute intracranial imaging findings. EVIDENCE OF ACUTE STROKE: NO. Chest X-Ray 05/09/20 17:17 IMPRESSION: NO ACUTE RADIOGRAPHIC FINDING IN THE CHEST. Pelvis Ultrasound 05/09/20 18:39 IMPRESSION: No significant or acute finding in the pelvis. The left ovary was not seen. The endometrium appears normal, but the study is somewhat limited. Assessment & Plan - Diagnosis (1) Anemia due to chronic blood loss Is this a current diagnosis for this admission?: Yes Plan: Patient will receive PRBC transfusion as indicated and we will monitor response. (2) Abnormal uterine and vaginal bleeding, unspecified Is this a current diagnosis for this admission?: Yes Plan: We will request MOBILE UI DESIGNER consultation for further evaluation and management. (3) Chronic atrial fibrillation Is this a current diagnosis for this admission?: Yes Plan: Hold Plavix therapy and coordinate with MOBILE UI DESIGNER about D&C schedule. (4) Diabetes mellitus type 2 in obese Is this a current diagnosis for this admission?: Yes Plan: See admitting attending physician orders for details about care plan. (5) HTN (hypertension) Qualifiers: Hypertension type: essential hypertension Qualified Code(s): I10 - Essential (primary) hypertension Is this a current diagnosis for this admission?: Yes Plan: See admitting attending physician orders for details about care plan. (6) Chronic kidney disease Qualifiers: Chronic kidney disease stage: stage 5, not on chronic dialysis Qualified C ode(s): N18.5 - Chronic kidney disease, stage 5 Is this a current diagnosis for this admission?: Yes Plan: See admitting attending physician orders for details about care plan. (7) HLD (hyperlipidemia) Qualifiers: Hyperlipidemia type: unspecified Qualified Code(s): E78.5 - Hyperlipidemia, unspecified Is this a current diagnosis for this admission?: Yes Plan: See admitting attending physician orders for details about care plan. (8) Hypothyroidism Qualifiers: Hypothyroidism type: unspecified Qualified Code(s): E03.9 - Hypothyroidism, unspecified Is this a current diagnosis for this admission?: Yes Plan: See admitting attending physician orders for details about care plan. (9) Chronic gouty arthritis Is this a current diagnosis for this admission?: Yes Plan: See admitting attending physician orders for details about care plan. (10) BMI 40.0-44.9, adult Is this a current diagnosis for this admission?: Yes Plan: See admitting attending physician orders for details about care plan. - Time Time Spent: 50 to 70 Minutes Medications reviewed and adjusted accordingly: Yes Anticipated Discharge Disposition: Home with Home Health Anticipated Discharge Timeframe: within 72 hours - Inpatient Certification Based on my medical assessment, after consideration of the patient's comorbidities, presenting symptoms, or acuity I expect that the services needed warrant INPATIENT care.: Yes I certify that my determination is in accordance with my understanding of Medicare's requirements for reasonable and necessary INPATIENT services [42 CFR 412.3e].: Yes Medical Necessity: Significant Comorbidiites Make Outpatient Treatment Too Ri jese, Need Close Monitoring Due to Risk of Patient Decompensation, Need For IV Fluids, Need For Continuous Telemetry Monitoring, Need for Surgery, Risk of Complication if Not Cared For in Hospital, Risk of Diagnosis Which Will Require Inpatient Eval/Care/Monitoring Post Hospital Care: D/C Connie Cleaner Documentation - Plan Summary Plan Summary: See admitting attending physician orders for details about care plan.
[2020-05-10] MEDS: POTASSIUM CHLORIDE 10 MEQ TABLET.ER PO SCH (21:43)
[2020-05-10] MEDS: ATORVASTATIN CALCIUM 10 MG TABLET PO SCH (21:44)
[2020-05-10] MEDS: DILTIAZEM HCL 120 MG CAP.SR.24H PO SCH (21:44)
[2020-05-10] MEDS ORDERED: INSULIN DEGLUDEC 48 UNIT SUBCUT SCH (22:00)
[2020-05-11] MEDS: POTASSIUM CHLORIDE 10 MEQ TABLET.ER PO SCH (00:05)
[2020-05-11] MEDS: LEVOTHYROXINE SODIUM 0.088 MG TABLET PO SCH (05:59)
[2020-05-11 06:27] LABS: ABSOLUTE BASOPHILS # (AUTO) 0.1 10^3/uL (0.0-0.2); ABSOLUTE EOSINOPHILS # (AUTO) 0.3 10^3/uL (0.0-0.6); ABSOLUTE LYMPHOCYTES (AUTO) 2.5 10^3/uL (0.5-4.7); ABSOLUTE MONOCYTES (AUTO) 0.8 10^3/uL (0.1-1.4); ABSOLUTE NEUT (AUTO) 5.8 10^3/uL (1.7-8.2); BASOPHILS % (AUTO) 0.8 % (0-2); HEMATOCRIT 24.3 % (36.0-47.0); HEMOGLOBIN 8.2 g/dL (12.0-15.5); MEAN CORPUSCULAR HEMOGLOBIN 30.9 pg (27.0-33.4); MEAN CORPUSCULAR HGB CONC 33.8 g/dL (32.0-36.0); MEAN CORPUSCULAR VOLUME 91 fl (80-97); MONOCYTES % (AUTO) 8.8 % (3-13); PLATELET COUNT 218 10^3/uL (150-450); RED BLOOD COUNT 2.67 10^6/uL (3.72-5.28); RED CELL DISTRIBUTION WIDTH 15.6 % (11.5-14.0); SEGMENTED NEUTROPHILS % (AUTO) 61.4 % (42-78); TOTAL CELLS COUNTED % (AUTO) 100 %; WHITE BLOOD COUNT 9.5 10^3/uL (4.0-10.5)
[2020-05-11 06:48] LABS: ANION GAP 9 (5-19); BLOOD UREA NITROGEN 44 mg/dL (7-20); CALCIUM 8.8 mg/dL (8.4-10.2); CARBON DIOXIDE 22 mmol/L (22-30); CHLORIDE 112 mmol/L (98-107); GLUCOSE 107 mg/dL (75-110)
[2020-05-11] MEDS: INSULIN LISPRO 100 UNIT/ML 3 ML VIAL SUBCUT SCH ×3 (08:16→22:51)
[2020-05-11] MEDS ORDERED: (PENDING PHARMACY ID) (Ubidecarenone/Vit E Acet [Co Q-10 100 Mg Softgel] 1 CAP) PO SCH (10:00)
[2020-05-11] MEDS ORDERED: ALPHA LIPOIC ACID 300 MG PO SCH (10:00)
[2020-05-11] MEDS ORDERED: (PENDING PHARMACY ID) (Semaglutide [Ozempic] 1 MG) SUBCUT SCH (10:00)
[2020-05-11] MEDS: DILTIAZEM HCL 120 MG CAP.SR.24H PO SCH ×2 (10:37→22:50)
[2020-05-11] MEDS: ALLOPURINOL 100 MG TABLET PO SCH (10:37)
[2020-05-11] MEDS: ASCORBIC ACID 500 MG TABLET PO SCH (10:38)
[2020-05-11] MEDS: CARVEDILOL 6.25 MG TABLET PO SCH ×2 (10:38→22:50)
[2020-05-11] MEDS: DOCUSATE SODIUM 100 MG CAPSULE PO SCH (10:39)
[2020-05-11] MEDS: VITAMIN E (DL, ACETATE) 400 UNIT CAPSULE PO SCH (10:41)
--- NOTE | 2020-05-11 17:36 | PDOC PROGRESS REPORT ---
Subjective Progress Note for:: 05/11/20 Subjective:: Feeling better but still experiencing unsteadiness with walking. Reported decrease vaginal bleeding to current level of drops. No chest pain, palpitation, or difficulty with breathing. No nausea, vomiting, or abdominal pain. Reason For Visit: ACUTE BLOOD LOSS ANEMIA,ABNORMAL UTERINE AND VAGIN Physical Exam Vital Signs: Temp Pulse Resp BP Pulse Ox 98.0 F 75 20 158/72 H 97 05/11/20 03:28 05/11/20 07:00 05/11/20 03:28 05/11/20 03:28 05/11/20 03:28 Intake & Output 05/10/20 05/11/20 05/12/20 06:59 06:59 06:59 Intake Total 750 3090 Output Total 450 Balance 750 2640 Weight 122.7 kg 124.3 kg 124.3 kg General appearance: PRESENT: no acute distress, morbidly obese Head exam: PRESENT: atraumatic, normocephalic Eye exam: PRESENT: conjunctiva pink. ABSENT: scleral icterus Ear exam: PRESENT: normal external ear exam Mouth exam: PRESENT: moist, tongue midline Neck exam: PRESENT: full ROM. ABSENT: carotid bruit, JVD, lymphadenopathy, thyromegaly Cardiovascular exam: PRESENT: irregular rhythm, +S1, +S2. ABSENT: diastolic murmur, rubs, systolic murmur Pulses: PRESENT: normal dorsalis pedis pul, +2 pedal pulses bilateral Vascular exam: ABSENT: pallor GI/Abdominal exam: PRESENT: normal bowel sounds, soft. ABSENT: distended, guarding, mass, organolmegaly, rebound, tenderness Rectal exam: PRESENT: deferred Musculoskeletal exam: PRESENT: deformity - related to multiple joints involvement with arthritis Neurological exam: PRESENT: alert, awake, oriented to person, oriented to place, oriented to time, oriented to situation, CN II-XII grossly intact. ABSENT: motor sensory deficit Psychiatric exam: PRESENT: appropriate affect, normal mood. ABSENT: homicidal ideation, suicidal ideation Skin exam: PRESENT: dry, intact, warm. ABSENT: cyanosis, rash Results Laboratory Results: 05/11/20 05:56 05/11/20 05:56 05/10/20 05/11/20 05/11/20 04:38 05:56 05:56 WBC 9.5 RBC 2.67 L Hgb 8.2 L Hct 24.3 L MCV 91 MCH 30.9 MCHC 33.8 RDW 15.6 H Plt Count 218 Seg Neutrophils % 61.4 Sodium 142.0 142.9 Potassium 3.4 L 4.0 Chloride 110 H 112 H Carbon Dioxide 22 22 Anion Gap 10 9 BUN 46 H 44 H Creatinine 5.12 H 4.45 H Est GFR ( Amer) 10 L 12 L Glucose 106 107 Calcium 9.1 8.8 Magnesium 2.4 H Impressions: Head CT 05/09/20 17:14 IMPRESSION: Chronic microvascular ischemia. No acute intracranial imaging findings. EVIDENCE OF ACUTE STROKE: NO. Chest X-Ray 05/09/20 17:17 IMPRESSION: NO ACUTE RADIOGRAPHIC FINDING IN THE CHEST. Pelvis Ultrasound 05/09/20 18:39 IMPRESSION: No significant or acute finding in the pelvis. The left ovary was not seen. The endometrium appears normal, but the study is somewhat limited. Assessment & Plan - Diagnosis (1) Anemia due to chronic blood loss Is this a current diagnosis for this admission?: Yes (2) Abnormal uterine and vaginal bleeding, unspecified Is this a current diagnosis for this admission?: Yes (3) Chronic atrial fibrillation Is this a current diagnosis for this admission?: Yes (4) Diabetes mellitus type 2 in obese Is this a current diagnosis for this admission?: Yes (5) HTN (hypertension) Qualifiers: Hypertension type: essential hypertension Qualified Code(s): I10 - Essential (primary) hypertension Is this a current diagnosis for this admission?: Yes (6) Chronic kidney disease Qualifiers: Chronic kidney disease stage: stage 5, not on chronic dialysis Qualified Code(s): N18.5 - Chronic kidney disease, stage 5 Is this a current diagnosis for this admission?: Yes (7) HLD (hyperlipidemia) Qualifiers: Hyperlipidemia type: unspecified Qualified Code(s): E78.5 - Hyperlipidemia, unspecified Is this a current diagnosis for this admission?: Yes (8) Hypothyroidism Qualifiers: Hypothyroidism type: unspecified Qualified Code(s): E03.9 - Hypothyroidism, unspecified Is this a current diagnosis for this admission?: Yes (9) Chronic gouty arthritis Is this a current diagnosis for this admission?: Yes (10) BMI 40.0-44.9, adult Is this a current diagnosis for this admission?: Yes - Time Time Spent with patient: 25-34 minutes Level of Care: IMCU Medications reviewed and adjusted accordingly: Yes Anticipated discharge: Home with Homehealth Anticipated DC Timeframe: within 72 hours - Inpatient Certification Based on my medical assessment, after consideration of the patient's comorbidities, presenting symptoms, or acuity I expect that the services needed warrant INPATIENT care.: Yes I certify that my determination is in accordance with my understanding of Medicare's requirements for reasonable and necessary INPATIENT services [42 CFR 412.3e].: Yes Medical Necessity: Significant Comorbidiites Make Outpatient Treatment Too Risky, Need Close Monitoring Due to Risk of Patient Decompensation, Need For Continuous Telemetry Monitoring, Risk of Complication if Not Cared For in Hospital, Risk of Diagnosis Which Will Require Inpatient Eval/Care/Monitoring Post Hospital Care: D/C Inside Steward/Stewardess Documentation - Plan Summary Plan Summary: Continue current medication management. Follow up on COVID-19 testing result. Request for PT evaluation.
[2020-05-11] MEDS: ATORVASTATIN CALCIUM 10 MG TABLET PO SCH (22:50)
[2020-05-12] MEDS: LEVOTHYROXINE SODIUM 0.088 MG TABLET PO SCH (06:14)
[2020-05-12] MEDS: CARVEDILOL 6.25 MG TABLET PO SCH ×2 (09:35→21:07)
[2020-05-12] MEDS: DOCUSATE SODIUM 100 MG CAPSULE PO SCH (09:36)
[2020-05-12] MEDS: ASCORBIC ACID 500 MG TABLET PO SCH (09:36)
[2020-05-12] MEDS: ALLOPURINOL 100 MG TABLET PO SCH (09:36)
[2020-05-12] MEDS: DILTIAZEM HCL 120 MG CAP.SR.24H PO SCH ×2 (09:36→21:07)
[2020-05-12] MEDS: VITAMIN E (DL, ACETATE) 400 UNIT CAPSULE PO SCH (09:38)
[2020-05-12] MEDS: INSULIN LISPRO 100 UNIT/ML 3 ML VIAL SUBCUT SCH ×4 (09:39→21:06)
--- NOTE | 2020-05-12 16:02 | PDOC PROGRESS REPORT ---
Subjective Progress Note for:: 05/12/20 Subjective:: vaginal bleeding on anticoag, she reports that vaginal bleeding is significanlty less now to drop to dime size Reason For Visit: ANEMIA, ABNORMAL VAGINAL BLEEDING Physical Exam - Physical Exam Vital Signs: Temp Pulse Resp BP Pulse Ox 99.6 F 65 18 144/73 H 97 05/12/20 11:46 05/12/20 11:46 05/12/20 11:46 05/12/20 11:46 05/12/20 11:46 Intake & Output 05/11/20 05/12/20 05/13/20 06:59 06:59 06:59 Intake Total 3090 2047 Output Total 450 750 Balance 2640 1297 Weight 124.3 kg 126.8 kg General appearance: PRESENT: no acute distress, obese, well-developed, well- nourished Head exam: PRESENT: atraumatic, normocephalic Respiratory exam: PRESENT: other - stops often to take deep breath GI/Abdominal exam: PRESENT: other - obese Rectal exam: PRESENT: deferred Neurological exam: PRESENT: alert, awake, oriented to person, oriented to place, oriented to time, oriented to situation, CN II-XII grossly intact. ABSENT: motor sensory deficit Skin exam: PRESENT: dry, intact, warm. ABSENT: cyanosis, rash - Gynecological Exam Labia: normal Urethra: normal Introitus: other - parous menopausal Perineum: normal Vagina: other - menopausal unable to visualize cervix in the office Result Laboratory Results: 05/11/20 05:56 05/11/20 05:56 Impressions: Head CT 05/09/20 17:14 IMPRESSION: Chronic microvascular ischemia. No acute intracranial imaging findings. EVIDENCE OF ACUTE STROKE: NO. Chest X-Ray 05/09/20 17:17 IMPRESSION: NO ACUTE RADIOGRAPHIC FINDING IN THE CHEST. Pelvis Ultrasound 05/09/20 18:39 IMPRESSION: No significant or acute finding in the pelvis. The left ovary was not seen. The endometrium appears normal, but the study is somewhat limited. Status: Imported from PACS Assessment & Plan - Diagnosis (1) Abnormal uterine and vaginal bleeding, unspecified Is this a current diagnosis for this admission?: Yes Plan: Unable to tolearte exam in office. ES now 3mm which is well within normal for Postmenopausal Attempted ot explain Provera is not likely the cause of her symptoms - anemia can however, cause the symptoms she noticed Her anemia is better. Agree with Dr. Muñiz recommendation (consult already placed) for patient to have procedure at [facility]iary care facility as this is not an emergency and her bleeding is much improved with the cessation of anticoag. D/w Dr. West regarding recommendations to f/u as outpatient with [facility]. Our office placed consult 05/10. (2) Postmenopausal Is this a current diagnosis for this admission?: Yes Plan: 11-12years ago. (3) BMI 40.0-44.9, adult Is this a current diagnosis for this admission?: Yes Plan: also MULTIPLE medical problems - Time Time Spent with patient: 15-24 minutes Level of Care: MEDICAL Medications reviewed and adjusted accordingly: Yes Anticipated discharge: Home Anticipated DC Timeframe: within 24 hours - Inpatient Certification Based on my medical assessment, after consideration of the patient's comorbidities, presenting symptoms, or acuity I expect that the services needed warrant INPATIENT care.: Yes I certify that my determination is in accordance with my understanding of Medicare's requirements for reasonable and necessary INPATIENT services [42 CFR 412.3e].: Yes Medical Necessity: Need For IV Fluids
--- NOTE | 2020-05-12 16:14 | PDOC PROGRESS REPORT ---
Subjective Progress Note for:: 05/12/20 Subjective:: Patient reported decrease vaginal bleeding but nursing staff did not witness any disposed sanitary pad since admission. No chest pain, palpitation, or difficulty with breathing. No nausea, vomiting, or abdominal pain. Reason For Visit: ANEMIA, ABNORMAL VAGINAL BLEEDING Physical Exam Vital Signs: Temp Pulse Resp BP Pulse Ox 99.6 F 65 18 144/73 H 97 05/12/20 11:46 05/12/20 11:46 05/12/20 11:46 05/12/20 11:46 05/12/20 11:46 Intake & Output 05/11/20 05/12/20 05/13/20 06:59 06:59 06:59 Intake Total 3090 2047 Output Total 450 750 Balance 2640 1297 Weight 124.3 kg 126.8 kg Physical Exam: General appearance: PRESENT: no acute distress, morbidly obese Head exam: PRESENT: atraumatic, normocephalic Eye exam: PRESENT: conjunctiva pink. ABSENT: pallor, sclera icterus Cardiovascular exam: PRESENT: irregular rhythm, +S1, +S2. ABSENT: diastolic murmur, rubs, systolic murmur GI/Abdominal exam: PRESENT: normal bowel sounds, soft. ABSENT: distended, guarding, mass, organomegaly, rebound, tenderness Musculoskeletal exam: PRESENT: deformity - related to multiple joints involvement with arthritis Neurological exam: PRESENT: alert, awake, oriented to person, oriented to place, oriented to time, oriented to situation, CN II-XII grossly intact. ABSENT: motor sensory deficit Psychiatric exam: PRESENT: appropriate affect, normal mood. ABSENT: homicidal ideation, suicidal ideation Skin exam: PRESENT: dry, intact, warm. ABSENT: cyanosis, rash Results Laboratory Results: 05/11/20 05:56 05/11/20 05:56 Impressions: Head CT 05/09/20 17:14 IMPRESSION: Chronic microvascular ischemia. No acute intracranial imaging findings. EVIDENCE OF ACUTE STROKE: NO. Chest X-Ray 05/09/20 17:17 IMPRESSION: NO ACUTE RADIOGRAPHIC FINDING IN THE CHEST. Pelvis Ultrasound 05/09/20 18:39 IMPRESSION: No significant or acute finding in the pelvis. The left ovary was not seen. The endometrium appears normal, but the study is somewhat limited. Assessment & Plan - Diagnosis (1) Anemia due to chronic blood loss Is this a current diagnosis for this admission?: Yes (2) Abnormal uterine and vaginal bleeding, unspecified Is this a current diagnosis for this admission?: Yes (3) Chronic atrial fibrillation Is this a current diagnosis for this admission?: Yes (4) Diabetes mellitus type 2 in obese Is this a current diagnosis for this admission?: Yes (5) HTN (hypertension) Qualifiers: Hypertension type: essential hypertension Qualified Code(s): I10 - Essential (primary) hypertension Is this a current diagnosis for this admission?: Yes (6) Chronic kidney disease Qualifiers: Chronic kidney disease stage: stage 5, not on chronic dialysis Qualified Code(s): N18.5 - Chronic kidney disease, stage 5 Is this a current diagnosis for this admission?: Yes (7) HLD (hyperlipidemia) Qualifiers: Hyperlipidemia type: unspecified Qualified Code(s): E78.5 - Hyperlipidemia, unspecified Is this a current diagnosis for this admission?: Yes (8) Hypothyroidism Qualifiers: Hypothyroidism type: unspecified Qualified Code(s): E03.9 - Hypothyroidism, unspecified Is this a current diagnosis for this admission?: Yes (9) Chronic gouty arthritis Is this a current diagnosis for this admission?: Yes (10) BMI 40.0-44.9, adult Is this a current diagnosis for this admission?: Yes - Time Time Spent with patient: 25-34 minutes Level of Care: IMCU Medications reviewed and adjusted accordingly: Yes Anticipated discharge: Home Anticipated DC Timeframe: within 72 hours - Inpatient Certification Based on my medical assessment, after consideration of the patient's comorbidities, presenting symptoms, or acuity I expect that the services needed warrant INPATIENT care.: Yes I certify that my determination is in accordance with my understanding of Medicare's requirements for reasonable and necessary INPATIENT services [42 CFR 412.3e].: Yes Medical Necessity: Significant Comorbidiites Make Outpatient Treatment Too Risky, Need Close Monitoring Due to Risk of Patient Decompensation, Need For Continuous Telemetry Monitoring, Risk of Complication if Not Cared For in Hospital, Risk of Diagnosis Which Will Require Inpatient Eval/Care/Monitoring Post Hospital Care: D/C Inventory Taker Documentation - Plan Summary Plan Summary: Continue current medication management. Obtain CBC with diff and BMP. I had extensive discussion with Dr. Reddy, BUILDING CUSTODIAN, regarding further intervention for her reported vaginal bleeding. In view of her morbidities and medication usage it is felt that she will be high operative risk. She is already schedule to consult at [facility], [place], [place].
[2020-05-12 18:19] LABS: ABSOLUTE BASOPHILS # (AUTO) 0.1 10^3/uL (0.0-0.2); ABSOLUTE EOSINOPHILS # (AUTO) 0.3 10^3/uL (0.0-0.6); ABSOLUTE LYMPHOCYTES (AUTO) 1.9 10^3/uL (0.5-4.7); ABSOLUTE MONOCYTES (AUTO) 0.6 10^3/uL (0.1-1.4); ABSOLUTE NEUT (AUTO) 5.2 10^3/uL (1.7-8.2); BASOPHILS % (AUTO) 1.2 % (0-2); EOSINOPHILS % (AUTO) 3.5 % (0-6); HEMATOCRIT 25.5 % (36.0-47.0); HEMOGLOBIN 8.7 g/dL (12.0-15.5); LYMPHOCYTES % (AUTO) 23.2 % (13-45); MEAN CORPUSCULAR HEMOGLOBIN 31.5 pg (27.0-33.4); MEAN CORPUSCULAR VOLUME 93 fl (80-97); MONOCYTES % (AUTO) 7.4 % (3-13); PLATELET COUNT 245 10^3/uL (150-450); RED BLOOD COUNT 2.76 10^6/uL (3.72-5.28); RED CELL DISTRIBUTION WIDTH 15.1 % (11.5-14.0); SEGMENTED NEUTROPHILS % (AUTO) 64.7 % (42-78); TOTAL CELLS COUNTED % (AUTO) 100 %
[2020-05-12 18:42] LABS: ANION GAP 9 (5-19); BLOOD UREA NITROGEN 47 mg/dL (7-20); CARBON DIOXIDE 23 mmol/L (22-30); CHLORIDE 109 mmol/L (98-107); GLUCOSE 120 mg/dL (75-110); POTASSIUM 4.3 mmol/L (3.6-5.0)
[2020-05-12] MEDS: ATORVASTATIN CALCIUM 10 MG TABLET PO SCH (21:07)
[2020-05-13] MEDS: LEVOTHYROXINE SODIUM 0.088 MG TABLET PO SCH (05:20)
[2020-05-13] MEDS: INSULIN LISPRO 100 UNIT/ML 3 ML VIAL SUBCUT SCH ×4 (09:00→22:56)
[2020-05-13] MEDS: DILTIAZEM HCL 120 MG CAP.SR.24H PO SCH ×2 (09:04→22:57)
[2020-05-13] MEDS: ASCORBIC ACID 500 MG TABLET PO SCH (09:04)
[2020-05-13] MEDS: ALLOPURINOL 100 MG TABLET PO SCH (09:04)
[2020-05-13] MEDS: VITAMIN E (DL, ACETATE) 400 UNIT CAPSULE PO SCH (09:04)
[2020-05-13] MEDS: CARVEDILOL 6.25 MG TABLET PO SCH ×2 (09:04→22:57)
[2020-05-13] MEDS: DOCUSATE SODIUM 100 MG CAPSULE PO SCH (09:04)
--- NOTE | 2020-05-13 10:29 | PDOC PROGRESS REPORT ---
Subjective Progress Note for:: 05/13/20 Subjective:: Patient is currently doing fair Patient however only just spotting no active bleeding Patient seen by the FILTER OPERATOR No other events per nursing staff Reason For Visit: ANEMIA, ABNORMAL VAGINAL BLEEDING Physical Exam Vital Signs: Temp Pulse Resp BP Pulse Ox 97.8 F 73 23 H 162/75 H 99 05/13/20 07:56 05/13/20 07:56 05/13/20 07:56 05/13/20 07:56 05/13/20 07:56 Intake & Output 05/12/20 05/13/20 05/14/20 06:59 06:59 06:59 Intake Total 2047 1860 Output Total 750 1310 Balance 1297 550 Weight 126.8 kg 126.5 kg General appearance: PRESENT: no acute distress, well-developed, well-nourished Head exam: PRESENT: atraumatic, normocephalic Eye exam: PRESENT: conjunctiva pink, EOMI, PERRLA. ABSENT: scleral icterus Ear exam: PRESENT: normal external ear exam Mouth exam: PRESENT: moist, tongue midline Neck exam: PRESENT: full ROM. ABSENT: carotid bruit, JVD, lymphadenopathy, thyromegaly Respiratory exam: PRESENT: clear to auscultation hans Cardiovascular exam: PRESENT: RRR. ABSENT: diastolic murmur, rubs, systolic murmur Vascular exam: PRESENT: normal capillary refill GI/Abdominal exam: PRESENT: normal bowel sounds, soft. ABSENT: distended, guarding, mass, organolmegaly, rebound, tenderness Rectal exam: PRESENT: deferred Neurological exam: PRESENT: alert, awake, oriented to person, oriented to place, oriented to time, oriented to situation. ABSENT: motor sensory deficit Psychiatric exam: PRESENT: appropriate affect, normal mood. ABSENT: homicidal ideation, suicidal ideation Skin exam: PRESENT: dry, intact, warm. ABSENT: cyanosis, rash Results Laboratory Results: 05/12/20 17:25 05/12/20 17:25 05/12/20 05/12/20 17:25 17:25 WBC 8.0 RBC 2.76 L Hgb 8.7 L Hct 25.5 L MCV 93 MCH 31.5 MCHC 34.0 RDW 15.1 H Plt Count 245 Seg Neutrophils % 64.7 Sodium 140.6 Potassium 4.3 Chloride 109 H Carbon Dioxide 23 Anion Gap 9 BUN 47 H Creatinine 4.61 H Est GFR ( Amer) 11 L Glucose 120 H Calcium 9.0 Impressions: Head CT 05/09/20 17:14 IMPRESSION: Chronic microvascular ischemia. No acute intracranial imaging findings. EVIDENCE OF ACUTE STROKE: NO. Chest X-Ray 05/09/20 17:17 IMPRESSION: NO ACUTE RADIOGRAPHIC FINDING IN THE CHEST. Pelvis Ultrasound 05/09/20 18:39 IMPRESSION: No significant or acute finding in the pelvis. The left ovary was not seen. The endometrium appears normal, but the study is somewhat limited. Assessment & Plan - Diagnosis (1) Abnormal uterine and vaginal bleeding, unspecified Is this a current diagnosis for this admission?: Yes (2) Acute blood loss anemia Is this a current diagnosis for this admission?: Yes (3) CKD (chronic kidney disease) stage 5, GFR less than 15 ml/min Is this a current diagnosis for this admission?: Yes (4) Chronic atrial fibrillation Is this a current diagnosis for this admission?: Yes (5) Diabetes mellitus type 2 in obese Is this a current diagnosis for this admission?: Yes (6) HTN (hypertension) Qualifiers: Hypertension type: essential hypertension Qualified Code(s): I10 - Essential (primary) hypertension Is this a current diagnosis for this admission?: Yes - Time Time Spent with patient: 15-24 minutes Level of Care: IMCU Medications reviewed and adjusted accordingly: Yes Anticipated discharge: Other Anticipated DC Timeframe: Other - Plan Summary Plan Summary: Continues to current medications
[2020-05-13] MEDS: ATORVASTATIN CALCIUM 10 MG TABLET PO SCH (22:57)
[2020-05-14] MEDS: LEVOTHYROXINE SODIUM 0.088 MG TABLET PO SCH (05:30)
[2020-05-14 05:48] LABS: ABSOLUTE BASOPHILS # (AUTO) 0.1 10^3/uL (0.0-0.2); ABSOLUTE EOSINOPHILS # (AUTO) 0.3 10^3/uL (0.0-0.6); ABSOLUTE LYMPHOCYTES (AUTO) 2.3 10^3/uL (0.5-4.7); ABSOLUTE MONOCYTES (AUTO) 0.8 10^3/uL (0.1-1.4); BASOPHILS % (AUTO) 1.1 % (0-2); EOSINOPHILS % (AUTO) 3.4 % (0-6); HEMATOCRIT 23.2 % (36.0-47.0); LYMPHOCYTES % (AUTO) 24.2 % (13-45); MEAN CORPUSCULAR HEMOGLOBIN 31.8 pg (27.0-33.4); MEAN CORPUSCULAR HGB CONC 34.3 g/dL (32.0-36.0); MEAN CORPUSCULAR VOLUME 93 fl (80-97); MONOCYTES % (AUTO) 8.6 % (3-13); PLATELET COUNT 217 10^3/uL (150-450); RED BLOOD COUNT 2.49 10^6/uL (3.72-5.28); RED CELL DISTRIBUTION WIDTH 15.4 % (11.5-14.0); SEGMENTED NEUTROPHILS % (AUTO) 62.7 % (42-78); TOTAL CELLS COUNTED % (AUTO) 100 %; WHITE BLOOD COUNT 9.6 10^3/uL (4.0-10.5)
[2020-05-14 05:52] LABS: HEMOGLOBIN 7.9 g/dL (12.0-15.5)
[2020-05-14 06:15] LABS: ANION GAP 12 (5-19); BLOOD UREA NITROGEN 53 mg/dL (7-20); CALCIUM 8.8 mg/dL (8.4-10.2); CARBON DIOXIDE 19 mmol/L (22-30); CHLORIDE 111 mmol/L (98-107); GLUCOSE 94 mg/dL (75-110); POTASSIUM 4.1 mmol/L (3.6-5.0)
--- NOTE | 2020-05-14 09:53 | PDOC PROGRESS REPORT ---
Subjective Progress Note for:: 05/14/20 Subjective:: Patient is currently doing well No vaginal bleeding Patient hemoglobin is 7.9 Patient have chronic kidney disease stage IV Patient also see a Dr. Duarte Patient's denied any chest pain no short of breath Reason For Visit: ANEMIA, ABNORMAL VAGINAL BLEEDING Physical Exam Vital Signs: Temp Pulse Resp BP Pulse Ox 97.9 F 76 22 H 166/69 H 98 05/14/20 07:41 05/14/20 07:41 05/14/20 07:41 05/14/20 07:41 05/14/20 07:41 Intake & Output 05/13/20 05/14/20 05/15/20 06:59 06:59 06:59 Intake Total 1860 1262 Output Total 1310 1850 Balance 550 -588 Weight 126.5 kg 127.9 kg General appearance: PRESENT: no acute distress, well-developed, well-nourished Head exam: PRESENT: atraumatic, normocephalic Eye exam: PRESENT: conjunctiva pink, EOMI, PERRLA. ABSENT: scleral icterus Ear exam: PRESENT: normal external ear exam Mouth exam: PRESENT: moist, tongue midline Neck exam: PRESENT: full ROM. ABSENT: carotid bruit, JVD, lymphadenopathy, thyromegaly Cardiovascular exam: PRESENT: RRR. ABSENT: diastolic murmur, rubs, systolic murmur Pulses: PRESENT: normal dorsalis pedis pul, +2 pedal pulses bilateral Vascular exam: PRESENT: normal capillary refill GI/Abdominal exam: PRESENT: normal bowel sounds, soft. ABSENT: distended, guarding, mass, organolmegaly, rebound, tenderness Rectal exam: PRESENT: deferred Neurological exam: PRESENT: alert, awake, oriented to person, oriented to place, oriented to time, oriented to situation, CN II-XII grossly intact. ABSENT: motor sensory deficit Psychiatric exam: PRESENT: appropriate affect, normal mood. ABSENT: homicidal ideation, suicidal ideation Skin exam: PRESENT: dry, intact, warm. ABSENT: cyanosis, rash Results Laboratory Results: 05/14/20 04:46 05/14/20 04:46 05/14/20 05/14/20 04:46 04:46 WBC 9.6 RBC 2.49 L Hgb 7.9 L Hct 23.2 L MCV 93 MCH 31.8 MCHC 34.3 RDW 15.4 H Plt Count 217 Seg Neutrophils % 62.7 Sodium 141.5 Potassium 4.1 Chloride 111 H Carbon Dioxide 19 L Anion Gap 12 BUN 53 H Creatinine 4.10 H Est GFR ( Amer) 13 L Glucose 94 Calcium 8.8 Impressions: Head CT 05/09/20 17:14 IMPRESSION: Chronic microvascular ischemia. No acute intracranial imaging findings. EVIDENCE OF ACUTE STROKE: NO. Chest X-Ray 05/09/20 17:17 IMPRESSION: NO ACUTE RADIOGRAPHIC FINDING IN THE CHEST. Pelvis Ultrasound 05/09/20 18:39 IMPRESSION: No significant or acute finding in the pelvis. The left ovary was not seen. The endometrium appears normal, but the study is somewhat limited. Assessment & Plan - Diagnosis (1) Abnormal uterine and vaginal bleeding, unspecified Is this a current diagnosis for this admission?: Yes (2) Acute blood loss anemia Is this a current diagnosis for this admission?: Yes (3) CKD (chronic kidney disease) stage 5, GFR less than 15 ml/min Is this a current diagnosis for this admission?: Yes (4) Chronic atrial fibrillation Is this a current diagnosis for this admission?: Yes (5) Diabetes mellitus type 2 in obese Is this a current diagnosis for this admission?: Yes (6) HTN (hypertension) Qualifiers: Hypertension type: essential hypertension Qualified Code(s): I10 - Essential (primary) hypertension Is this a current diagnosis for this admission?: Yes - Time Time Spent with patient: 15-24 minutes Level of Care: IMCU Medications reviewed and adjusted accordingly: Yes Anticipated discharge: Other Anticipated DC Timeframe: Other - Plan Summary Plan Summary: Patient with no acute blood loss right now We will watch the hemoglobin And iron study Consider Procrit injections
[2020-05-14] MEDS: INSULIN LISPRO 100 UNIT/ML 3 ML VIAL SUBCUT SCH ×4 (10:06→21:19)
[2020-05-14] MEDS: ASCORBIC ACID 500 MG TABLET PO SCH (10:18)
[2020-05-14] MEDS: DILTIAZEM HCL 120 MG CAP.SR.24H PO SCH ×2 (10:18→21:15)
[2020-05-14] MEDS: ALLOPURINOL 100 MG TABLET PO SCH (10:18)
[2020-05-14] MEDS: CARVEDILOL 6.25 MG TABLET PO SCH ×2 (10:18→21:15)
[2020-05-14] MEDS: DOCUSATE SODIUM 100 MG CAPSULE PO SCH (10:18)
[2020-05-14] MEDS: VITAMIN E (DL, ACETATE) 400 UNIT CAPSULE PO SCH (10:20)
[2020-05-14] MEDS ORDERED: ACETAMINOPHEN 325 MG TABLET ONE (13:19)
[2020-05-14] MEDS ORDERED: ACETAMINOPHEN 325 MG TABLET PO PRN (14:32)
[2020-05-14] MEDS: ATORVASTATIN CALCIUM 10 MG TABLET PO SCH (21:15)
[2020-05-15] MEDS: LEVOTHYROXINE SODIUM 0.088 MG TABLET PO SCH (05:04)
[2020-05-15 05:48] LABS: ABSOLUTE RETICS # 0.068 10^6/uL (0.028-0.122); RETICULOCYTE COUNT (AUTO) 2.66 % (0.66-2.85)
[2020-05-15 06:16] LABS: ANION GAP 8 (5-19); BLOOD UREA NITROGEN 54 mg/dL (7-20); CALCIUM 8.7 mg/dL (8.4-10.2); CARBON DIOXIDE 20 mmol/L (22-30); CHLORIDE 113 mmol/L (98-107); GLUCOSE 104 mg/dL (75-110); IRON(TIBC) 28.6 ug/dL (37-170); POTASSIUM 4.1 mmol/L (3.6-5.0)
[2020-05-15] MEDS: INSULIN LISPRO 100 UNIT/ML 3 ML VIAL SUBCUT SCH ×4 (09:23→21:33)
[2020-05-15] MEDS: VITAMIN E (DL, ACETATE) 400 UNIT CAPSULE PO SCH (09:27)
[2020-05-15] MEDS: DILTIAZEM HCL 120 MG CAP.SR.24H PO SCH ×2 (09:27→21:34)
[2020-05-15] MEDS: ALLOPURINOL 100 MG TABLET PO SCH (09:27)
[2020-05-15] MEDS: DOCUSATE SODIUM 100 MG CAPSULE PO SCH (09:27)
[2020-05-15] MEDS: CARVEDILOL 6.25 MG TABLET PO SCH ×2 (09:28→21:34)
[2020-05-15] MEDS: ASCORBIC ACID 500 MG TABLET PO SCH (09:28)
[2020-05-15] MEDS: ATORVASTATIN CALCIUM 10 MG TABLET PO SCH (21:34)
[2020-05-16] MEDS: LEVOTHYROXINE SODIUM 0.088 MG TABLET PO SCH (05:25)
[2020-05-16 07:16] LABS: ABSOLUTE EOSINOPHILS # (AUTO) 0.3 10^3/uL (0.0-0.6); ABSOLUTE LYMPHOCYTES (AUTO) 2.1 10^3/uL (0.5-4.7); ABSOLUTE MONOCYTES (AUTO) 0.8 10^3/uL (0.1-1.4); ABSOLUTE NEUT (AUTO) 5.7 10^3/uL (1.7-8.2); BASOPHILS % (AUTO) 0.2 % (0-2); EOSINOPHILS % (AUTO) 3.6 % (0-6); HEMATOCRIT 25.1 % (36.0-47.0); HEMOGLOBIN 8.5 g/dL (12.0-15.5); LYMPHOCYTES % (AUTO) 23.6 % (13-45); MEAN CORPUSCULAR HEMOGLOBIN 31.5 pg (27.0-33.4); MEAN CORPUSCULAR HGB CONC 33.9 g/dL (32.0-36.0); MEAN CORPUSCULAR VOLUME 93 fl (80-97); MONOCYTES % (AUTO) 8.6 % (3-13); PLATELET COUNT 240 10^3/uL (150-450); RED CELL DISTRIBUTION WIDTH 15.2 % (11.5-14.0); TOTAL CELLS COUNTED % (AUTO) 100 %; WHITE BLOOD COUNT 8.9 10^3/uL (4.0-10.5)
[2020-05-16 07:38] LABS: ANION GAP 11 (5-19); BLOOD UREA NITROGEN 58 mg/dL (7-20); CALCIUM 9.1 mg/dL (8.4-10.2); CARBON DIOXIDE 21 mmol/L (22-30); CHLORIDE 109 mmol/L (98-107); GLUCOSE 104 mg/dL (75-110); POTASSIUM 4.4 mmol/L (3.6-5.0)
[2020-05-16] MEDS: INSULIN LISPRO 100 UNIT/ML 3 ML VIAL SUBCUT SCH ×2 (09:48→13:53)
[2020-05-16] MEDS: DOCUSATE SODIUM 100 MG CAPSULE PO SCH (09:49)
[2020-05-16] MEDS: ASCORBIC ACID 500 MG TABLET PO SCH (09:49)
[2020-05-16] MEDS: VITAMIN E (DL, ACETATE) 400 UNIT CAPSULE PO SCH (09:49)
[2020-05-16] MEDS: CARVEDILOL 6.25 MG TABLET PO SCH (09:49)
[2020-05-16] MEDS: ALLOPURINOL 100 MG TABLET PO SCH (09:49)
[2020-05-16] MEDS: DILTIAZEM HCL 120 MG CAP.SR.24H PO SCH (09:50)
--- NOTE | 2020-05-16 16:02 | PDOC PROGRESS REPORT ---
Subjective Progress Note for:: 05/15/20 Subjective:: Patient reported decrease vaginal bleeding with mainly noticed blood with urination and reported tarry stool since last clinical evaluation by myself. No chest pain, palpitation, or difficulty with breathing. No nausea, vomiting, or abdominal pain. Reason For Visit: ANEMIA, ABNORMAL VAGINAL BLEEDING Physical Exam Vital Signs: Temp Pulse Resp BP Pulse Ox 97.5 F 65 14 147/79 H 99 05/15/20 10:00 05/15/20 07:00 05/15/20 03:22 05/15/20 03:22 05/15/20 03:22 Intake & Output 05/14/20 05/15/20 05/16/20 06:59 06:59 06:59 Intake Total 1262 1332 Output Total 1850 1450 Balance -588 -118 Weight 127.9 kg 127.1 kg Physical Exam: General appearance: PRESENT: no acute distress, morbidly obese Head exam: PRESENT: atraumatic, normocephalic Eye exam: PRESENT: conjunctiva pink. ABSENT: pallor, sclera icterus Cardiovascular exam: PRESENT: irregular rhythm, +S1, +S2. ABSENT: diastolic murmur, rubs, systolic murmur GI/Abdominal exam: PRESENT: normal bowel sounds, soft. ABSENT: distended, guarding, mass, organomegaly, rebound, tenderness Musculoskeletal exam: PRESENT: deformity - related to multiple joints involvement with arthritis Neurological exam: PRESENT: alert, awake, oriented to person, oriented to place, oriented to time, oriented to situation, CN II-XII grossly intact. ABSENT: motor sensory deficit Psychiatric exam: PRESENT: appropriate affect, normal mood. ABSENT: homicidal ideation, suicidal ideation Skin exam: PRESENT: dry, intact, warm. ABSENT: cyanosis, rash Results Laboratory Results: 05/14/20 04:46 05/15/20 05:01 05/15/20 05/15/20 05:01 05:01 Retic Count (auto) 2.66 Sodium 140.9 Potassium 4.1 Chloride 113 H Carbon Dioxide 20 L Anion Gap 8 BUN 54 H Creatinine 4.57 H Est GFR ( Amer) 12 L Glucose 104 Calcium 8.7 Iron 28.6 L TIBC 304 % Saturation 9 Ferritin 21.20 Vitamin B12 521.0 Folate 7.00 Impressions: Head CT 05/09/20 17:14 IMPRESSION: Chronic microvascular ischemia. No acute intracranial imaging findings. EVIDENCE OF ACUTE STROKE: NO. Chest X-Ray 05/09/20 17:17 IMPRESSION: NO ACUTE RADIOGRAPHIC FINDING IN THE CHEST. Pelvis Ultrasound 05/09/20 18:39 IMPRESSION: No significant or acute finding in the pelvis. The left ovary was not seen. The endometrium appears normal, but the study is somewhat limited. Assessment & Plan - Diagnosis (1) Anemia due to chronic blood loss Is this a current diagnosis for this admission?: Yes (2) Abnormal uterine and vaginal bleeding, unspecified Is this a current diagnosis for this admission?: Yes (3) Chronic atrial fibrillation Is this a current diagnosis for this admission?: Yes (4) Diabetes mellitus type 2 in obese Is this a current diagnosis for this admission?: Yes (5) HTN (hypertension) Qualifiers: Hypertension type: essential hypertension Qualified Code(s): I10 - Essential (primary) hypertension Is this a current diagnosis for this admission?: Yes (6) Chronic kidney disease Qualifiers: Chronic kidney disease stage: stage 5, not on chronic dialysis Qualified Code(s): N18.5 - Chronic kidney disease, stage 5 Is this a current diagnosis for this admission?: Yes (7) HLD (hyperlipidemia) Qualifiers: Hyperlipidemia type: unspecified Qualified Code(s): E78.5 - Hyperlipidemia, unspecified Is this a current diagnosis for this admission?: Yes (8) Hypothyroidism Qualifiers: Hypothyroidism type: unspecified Qualified Code(s): E03.9 - Hypothyroidism, unspecified Is this a current diagnosis for this admission?: Yes (9) Chronic gouty arthritis Is this a current diagnosis for this admission?: Yes (10) BMI 40.0-44.9, adult Is this a current diagnosis for this admission?: Yes - Time Time Spent with patient: 25-34 minutes Level of Care: IMCU Medications reviewed and adjusted accordingly: Yes Anticipated discharge: Home with Homehealth Anticipated DC Timeframe: within 48 hours - Inpatient Certification Based on my medical assessment, after consideration of the patient's comorbidities, presenting symptoms, or acuity I expect that the services needed warrant INPATIENT care.: Yes I certify that my determination is in accordance with my understanding of Medicare's requirements for reasonable and necessary INPATIENT services [42 CFR 412.3e].: Yes Medical Necessity: Significant Comorbidiites Make Outpatient Treatment Too Risky, Need Close Monitoring Due to Risk of Patient Decompensation, Need For Continuous Telemetry Monitoring, Risk of Complication if Not Cared For in Hospital, Risk of Diagnosis Which Will Require Inpatient Eval/Care/Monitoring Post Hospital Care: D/C Launch Manager Documentation - Plan Summary Plan Summary: Follow up on pending labs. Obtain more information from the SECURITY GUARD SUPERVISOR team regarding referral arrangement at [facility] in [place], [place] upon discharge.
--- NOTE | 2020-05-16 16:36 | PDOC DISCHARGE SUMMARY ---
Impression - Admit/DC Date/PCP Admission Date/Primary Care Provider: 05/09/20 21:21 Caroline TINSLEY MD Discharge Date: 05/16/20 - Discharge Diagnosis (1) Anemia due to chronic blood loss Is this a current diagnosis for this admission?: Yes (2) Abnormal uterine and vaginal bleeding, unspecified Is this a current diagnosis for this admission?: Yes (3) Chronic atrial fibrillation Is this a current diagnosis for this admission?: Yes (4) Diabetes mellitus type 2 in obese Is this a current diagnosis for this admission?: Yes (5) HTN (hypertension) Is this a current diagnosis for this admission?: Yes (6) Chronic kidney disease Is this a current diagnosis for this admission?: Yes (7) HLD (hyperlipidemia) Is this a current diagnosis for this admission?: Yes (8) Hypothyroidism Is this a current diagnosis for this admission?: Yes (9) Chronic gouty arthritis Is this a current diagnosis for this admission?: Yes (10) BMI 40.0-44.9, adult Is this a current diagnosis for this admission?: Yes - Assessment Summary: Patient was admitted for reported dizziness, difficulty with ambulating and finding of significantly low hemoglobin necessitating need for PRBC transfusion. She was transfused total of 2 units PRBC during this hospitalization. She was seen in consultation by the gynecology team with recommendation for tertiary center referral for further intervention due to her morbidities and anesthesia concerns. She has a referral in the work for consultation at [facility]. Our attempt to hasten the consultation at [facility] during this discharge process was unsuccessful. She will resume her plavix therapy and contact [facility] upon discharge for her appointment date and time. She was instructed to monitor bleeding closely and report to the nearest hospital for further management should he has significant bleeding. She tested negative for the COVID-19 virus during this hospitalization. She will follow up in the office as instructed upon discharge. - Additional Information Resuscitation Status: Full Code Discharge Diet: As Tolerated Discharge Activity: Activity As Tolerated, Slowly Increase Activity Referrals: Caroline TINSLEY MD [Primary Care Provider] - Follow up as needed DI MANCINI MD [ACTIVE STAFF] - 04/26/21 10:00 am MACHO HANLEY MD [ACTIVE STAFF] - Home Medications: Allopurinol [Zyloprim 100 mg Tablet] 100 mg PO QAM 07/20/19 Ascorbic Acid [C-500] 500 mg PO DAILY 07/20/19 Calcitriol [Rocaltrol 0.25 mcg Capsule] 0.25 mcg PO QAM 07/20/19 Carvedilol [Coreg 6.25 mg Tablet] 6.25 mg PO QAM 07/20/19 Levothyroxine Sodium [Synthroid 0.088 mg Tablet] 0.088 mg PO Q6AM 07/20/19 Rosuvastatin Calcium [Crestor 5 mg Tablet] 5 mg PO QHS 07/20/19 Semaglutide [Ozempic] 1 mg SQ TH@1000 07/20/19 Ubidecarenone/Vit E Acet [Co Q-10 100 mg Softgel] 1 cap PO DAILY 07/20/19 Alpha Lipoic Acid [Alpha Lipoic Acid 300 mg Capsule] 300 mg PO DAILY 02/02/20 Diltiazem HCl [Diltiazem 12Hr ER] 120 mg PO DAILY 02/02/20 Insulin Degludec [Tresiba Flextouch U-200] 48 units SQ QHS 02/02/20 Vitamin E (Dl, Acetate) [Vitamin E 400 Unit Capsule] 400 unit PO DAILY 02/02/20 Clopidogrel Bisulfate [Plavix 75 mg Tablet] 75 mg PO QAM 05/10/20 Docusate Sodium [Colace 100 mg Capsule] 200 mg PO QAM 05/10/20 History of Present Illiness History of Present Illness: DOMINGA RIBERA is a 69 year old female known to my practice who presented to the ED with reported of postural dizziness, recurrent falls and unsteadiness in her gait and balance. She has ongoing vaginal bleeding over last 1 month and under lens edger evaluation. She was recently started on Medroxyprogesterone by her lens edger, Dr. Hanley, with recommendation for dilatation and curettage due to her postmenopausal vaginal bleeding. e reported continue but some decrease bleeding. Her initial evaluation in the ED revealed severe anemia as a consequence of her prolonged bleeding. She denied any head injury from her fall, no loss of consciousness. She denied chest pain, palpitation, headache, neck pain, back pain, nausea, vomiting, or abdominal pain. no fever or chills. She is under the belief that her recent Medroxyprogesterone is responsible for her symptoms. She was advised hospitalization for further evaluation and management. Her morbidities are listed below. Hospital Course Hospital Course: Patient was admitted for reported dizziness, difficulty with ambulating and finding of significantly low hemoglobin necessitating need for PRBC transfusion. She was transfused total of 2 units PRBC during this hospitalization. She was seen in consultation by the gynecology team with recommendation for tertiary center referral for further intervention due to her morbidities and anesthesia concerns. She has a referral in the work for consultation at [facility]. Our attempt to hasten the consultation at [facility] during this discharge process was unsuccessful. She will resume her plavix therapy and contact [facility] upon discharge for her appointment date and time. She was instructed to monitor bleeding closely and report to the nearest hospital for further management should he has significant bleeding. Physical Exam Vital Signs: Temp Pulse Resp BP Pulse Ox 98.2 F 68 18 152/75 H 98 05/16/20 11:50 05/16/20 14:00 05/16/20 11:50 05/16/20 11:50 05/16/20 11:50 Intake & Output 05/15/20 05/16/20 05/17/20 06:59 06:59 06:59 Intake Total 1332 2062 578 Output Total 1450 1900 200 Balance -118 162 378 Weight 127.1 kg 127 kg General appearance: PRESENT: morbidly obese Head exam: PRESENT: atraumatic, normocephalic Eye exam: PRESENT: conjunctiva pink, scleral icterus Mouth exam: PRESENT: moist Respiratory exam: PRESENT: clear to auscultation hans Cardiovascular exam: PRESENT: RRR, +S1, +S2. ABSENT: diastolic murmur, rubs, systolic murmur Vascular exam: ABSENT: pallor GI/Abdominal exam: PRESENT: normal bowel sounds, soft. ABSENT: distended, guarding, mass, organolmegaly, rebound, tenderness Extremities exam: ABSENT: pedal edema Musculoskeletal exam: PRESENT: deformity - related o multiple joint involvement with arthritis Neurological exam: PRESENT: alert, awake, oriented to person, oriented to place, oriented to time, oriented to situation, CN II-XII grossly intact. ABSENT: motor sensory deficit Psychiatric exam: PRESENT: appropriate affect, normal mood. ABSENT: homicidal ideation, suicidal ideation Skin exam: PRESENT: dry, warm Results Laboratory Results: WBC 8.9 10^3/uL (4.0-10.5) 05/16/20 06:34 RBC 2.70 10^6/uL (3.72-5.28) L 05/16/20 06:34 Hgb 8.5 g/dL (12.0-15.5) L 05/16/20 06:34 Hct 25.1 % (36.0-47.0) L 05/16/20 06:34 MCV 93 fl (80-97) 05/16/20 06:34 MCH 31.5 pg (27.0-33.4) 05/16/20 06:34 MCHC 33.9 g/dL (32.0-36.0) 05/16/20 06:34 RDW 15.2 % (11.5-14.0) H 05/16/20 06:34 Plt Count 240 10^3/uL (150-450) 05/16/20 06:34 Lymph % (Auto) 23.6 % (13-45) 05/16/20 06:34 Wake % (Auto) 8.6 % (3-13) 05/16/20 06:34 Eos % (Auto) 3.6 % (0-6) 05/16/20 06:34 Baso % (Auto) 0.2 % (0-2) 05/16/20 06:34 Reticulocyte # 0.068 10^6/uL (0.028-0.122) 05/15/20 05:01 Absolute Neuts (auto) 5.7 10^3/uL (1.7-8.2) 05/16/20 06:34 Absolute Lymphs (auto) 2.1 10^3/uL (0.5-4.7) 05/16/20 06:34 Absolute Monos (auto) 0.8 10^3/uL (0.1-1.4) 05/16/20 06:34 Absolute Eos (auto) 0.3 10^3/uL (0.0-0.6) 05/16/20 06:34 Absolute Basos (auto) 0.0 10^3/uL (0.0-0.2) 05/16/20 06:34 Seg Neutrophils % 64.0 % (42-78) 05/16/20 06:34 Retic Count (auto) 2.66 % (0.66-2.85) 05/15/20 05:01 Sodium 140.5 mmol/L (137-145) 05/16/20 06:34 Potassium 4.4 mmol/L (3.6-5.0) 05/16/20 06:34 Chloride 109 mmol/L (98-107) H 05/16/20 06:34 Carbon Dioxide 21 mmol/L (22-30) L 05/16/20 06:34 Anion Gap 11 (5-19) 05/16/20 06:34 BUN 58 mg/dL (7-20) H 05/16/20 06:34 Creatinine 4.56 mg/dL (0.52-1.25) H 05/16/20 06:34 Est GFR ( Amer) 12 (>60) L 05/16/20 06:34 Est GFR (MDRD) Non-Af 10 (>60) L 05/16/20 06:34 Glucose 104 mg/dL (75-110) 05/16/20 06:34 POC Glucose 125 mg/dL (70-110) H 05/16/20 11:50 Calcium 9.1 mg/dL (8.4-10.2) 05/16/20 06:34 Magnesium 2.4 mg/dL (1.6-2.3) H 05/10/20 04:38 Iron 28.6 ug/dL (37-170) L 05/15/20 05:01 TIBC 304 ug/dL (250-450) 05/15/20 05:01 % Saturation 9 % 05/15/20 05:01 Ferritin 21.20 ng/mL (11.1-264.0) 05/15/20 05:01 Total Bilirubin 0.3 mg/dL (0.2-1.3) 05/09/20 17:46 Direct Bilirubin 0.3 mg/dL (0.0-0.4) 05/09/20 17:46 Neonat Total Bilirubin Not Reportable 05/09/20 17:46 Neonat Direct Bilirubin Not Reportable 05/09/20 17:46 Neonat Indirect Bili Not Reportable 05/09/20 17:46 AST 17 U/L (14-36) 05/09/20 17:46 ALT 8 U/L (<35) 05/09/20 17:46 Alkaline Phosphatase 81 U/L (38-126) 05/09/20 17:46 Total Protein 6.8 g/dL (6.3-8.2) 05/09/20 17:46 Albumin 3.7 g/dL (3.5-5.0) 05/09/20 17:46 Vitamin B12 521.0 pg/mL (239-931) 05/15/20 05:01 Folate 7.00 ng/mL (>2.76) 05/15/20 05:01 COVID-19 Source See comment 05/10/20 17:00 COVID-19 (PAULA) Not Detected (Not Detect) 05/10/20 17:00 Blood Type AB POSITIVE 05/09/20 19:45 Blood Type Confirm AB POSITIVE 05/09/20 19:55 Antibody Screen NEGATIVE 05/09/20 19:45 Crossmatch See Detail 05/09/20 19:45 Impressions: Head CT 05/09/20 17:14 IMPRESSION: Chronic microvascular ischemia. No acute intracranial imaging findings. EVIDENCE OF ACUTE STROKE: NO. Chest X-Ray 05/09/20 17:17 IMPRESSION: NO ACUTE RADIOGRAPHIC FINDING IN THE CHEST. Pelvis Ultrasound 05/09/20 18:39 IMPRESSION: No significant or acute finding in the pelvis. The left ovary was not seen. The endometrium appears normal, but the study is somewhat limited. Plan Health Concerns: Recurrent postmenopausal vaginal bleeding and high risk off anticoagulation for intermittent atrial fibrillation. Plan of Treatment: Follow up on confirmed received consultation at [facility] in [place], [place]. Close monitoring of her hemoglobin on office follow up visit. Goals: Reduce readmission risk. definitive lens edger intervention that will allow anticoagulation for her Atrial Fibrillation in view of her high risk for recurrent embolic stroke. Time Spent: Greater than 30 Minutes Stroke Is this a Stroke Patient?: No Acute Heart Failure Is this a Heart Failure Patient?: No
[2020-05-16 16:42] VITALS: BP 156/71
[2020-05-17] MEDS ORDERED: CALCITRIOL 0.25 MCG CAPSULE PO SCH (05:00)
== END 2020-05-16 18:25 | disposition home health service (06) | DRG 811 ==
LOC: ER 16:41 → EH 21:21 → 3S 05-10 00:31
PROVIDERS: ADMIT Internal Medicine Geriatric Medicine; ATTEND Internal Medicine Geriatric Medicine
PROC: 30233N1 Transfusion of Nonautologous Red Blood Cells into Peripheral Vein, Percutaneous Approach (ICD-10-PCS; principal; 2020-05-09)
PROC: 30233N1 Transfusion of Nonautologous Red Blood Cells into Peripheral Vein, Percutaneous Approach (ICD-10-PCS; 2020-05-10)
DX: D50.0 Iron deficiency anemia secondary to blood loss (chronic) (principal); N18.6 End stage renal disease; I48.20 Chronic atrial fibrillation, unspecified; Z68.41 Body mass index [BMI] 40.0-44.9, adult; E11.22 Type 2 diabetes mellitus with diabetic chronic kidney disease; I12.9 Hypertensive chronic kidney disease with stage 1 through stage 4 chronic kidney disease, or unspecified chronic kidney disease; E78.5 Hyperlipidemia, unspecified; E03.9 Hypothyroidism, unspecified; M1A.9XX0 Chronic gout, unspecified, without tophus (tophi); E66.01 Morbid (severe) obesity due to excess calories; F17.210 Nicotine dependence, cigarettes, uncomplicated; N95.0 Postmenopausal bleeding; Z79.02 Long term (current) use of antithrombotics/antiplatelets; Z11.59 Encounter for screening for other viral diseases; Z79.4 Long term (current) use of insulin; Z79.899 Other long term (current) drug therapy; Z91.040 Latex allergy status; Z86.73 Personal history of transient ischemic attack (TIA), and cerebral infarction without residual deficits
CPT/HCPCS: 36415; 36430; 70450; 71045; 76856; 80048; 80053; 82607; 82668; 82728; 82746; 82962; 83540; 83550; 83735; 85025; 85027; 85045; 86850; 86900; 86901; 86920; 87635; 93976; 99285; C9803; J1815; P9016

== ENCOUNTER → 2020-07-04 | Outpatient (CLI) | payer MEDICARE, BC ==
[2020-07-04 10:14] LABS: HEMATOCRIT 29.1 % (36.0-47.0); HEMOGLOBIN 9.9 g/dL (12.0-15.5); MEAN CORPUSCULAR HEMOGLOBIN 30.3 pg (27.0-33.4); MEAN CORPUSCULAR VOLUME 89 fl (80-97); PLATELET COUNT 248 10^3/uL (150-450); RED BLOOD COUNT 3.26 10^6/uL (3.72-5.28); RED CELL DISTRIBUTION WIDTH 16.1 % (11.5-14.0); WHITE BLOOD COUNT 6.1 10^3/uL (4.0-10.5)
[2020-07-04 10:30] LABS: ALBUMIN 3.9 g/dL (3.5-5.0); ANION GAP 13 (5-19); BLOOD UREA NITROGEN 43 mg/dL (7-20); CALCIUM 9.6 mg/dL (8.4-10.2); CARBON DIOXIDE 21 mmol/L (22-30); CHLORIDE 110 mmol/L (98-107); GLUCOSE 123 mg/dL (75-110); POTASSIUM 3.7 mmol/L (3.6-5.0)
[2020-07-04 10:42] LABS: APPEARANCE,URINE CLOUDY; BILIRUBIN,URINE NEGATIVE (NEGATIVE); GLUCOSE, URINE 50 mg/dL (NEGATIVE); KETONES,URINE NEGATIVE (NEGATIVE); LEUKOCYTE ESTERASE,URINE TRACE (NEGATIVE); NITRITE,URINE NEGATIVE (NEGATIVE); PROTEIN,URINE >=500 mg/dL (NEGATIVE); URINE SPECIFIC GRAVITY 1.013; UROBILINOGEN,URINE NEGATIVE mg/dL (<2.0)
[2020-07-04 10:43] LABS: COLOR,URINE YELLOW; URINE CREATININE 183.3 mg/dL (15-278)
[2020-07-04 10:58] LABS: UR PRO/CREAT RATIO RESULT 1.6 mg/mg (0.0-0.2); URINE PROTEIN 298.4 mg/dL (<12)
[2020-07-05 11:09] LABS: APPEARANCE,URINE CLOUDY; BILIRUBIN,URINE NEGATIVE (NEGATIVE); COLOR,URINE STRAW; GLUCOSE, URINE NEGATIVE (NEGATIVE); KETONES,URINE NEGATIVE (NEGATIVE); LEUKOCYTE ESTERASE,URINE NEGATIVE (NEGATIVE); NITRITE,URINE NEGATIVE (NEGATIVE); PROTEIN,URINE 100 mg/dL (NEGATIVE); UROBILINOGEN,URINE NEGATIVE mg/dL (<2.0)
[2020-07-05 11:34] LABS: UR PRO/CREAT RATIO RESULT 1.5 mg/mg (0.0-0.2); URINE CREATININE 66.1 mg/dL (15-278); URINE PROTEIN 100.9 mg/dL (<12)
== END ==
LOC: OD 09:19
PROVIDERS: ATTEND Internal Medicine Nephrology
DX: N18.4 Chronic kidney disease, stage 4 (severe) (principal)
CPT/HCPCS: 36415; 80069; 81001; 82570; 83970; 84156; 85027